=== PATIENT | female | born 1950 | race Caucasian/White ===

== ENCOUNTER 2017-08-02 12:49 | Observation (INO) | payer MEDICARE, MEDICAID ==
[2017-08-02 13:35] LABS: #Basophils 0.1 thou/uL (0.0-0.2); #Eosinphils 0.2 thou/uL (0.0-0.7); #Lymphocytes 2.3 thou/uL (1.20-3.40); #Monocytes 1.1 thou/uL (0.11-0.59); #Neutrophils 5.8 thou/uL (1.40-6.50); %Basophils 0.8 % (0.0-1.0); %Eosinophils 1.9 % (0.0-10.0); %Lymphocytes 24.3 % (21.0-51.0); %Monocytes 11.2 % (0.0-10.0); Hematocrit 34.8 % (36.0-47.0); Mean Platelet Volume 6.1 fL (7.4-10.4); Red Blood Cell (RBC) Count 3.41 mill/uL (4.20-5.40); White Blood Cell (WBC) Count 9.4 thou/uL (4.8-10.8)
[2017-08-02 13:43] LABS: PTT 33.4 SEC (22.9-36.1); Prothrombin Time 13.4 SEC (12.0-14.7)
[2017-08-02 13:56] LABS: ALT (SGPT) Less than 7 U/L (8-55); AST (SGOT) 14 U/L (5-34); Alkaline Phosphatase 70 U/L (40-150); Anion Gap 12 mmol/L (10-20); BUN (Urea Nitrogen) 8 mg/dL (9.8-20.1); Bilirubin, Total 0.6 mg/dL (0.2-1.2); CK (CPK) 63 U/L (29-168); Calc. Creatinine Clearance 0 mL/min (70-130); Calcium 8.7 mg/dL (7.8-10.44); Carbon Dioxide 27 mmol/L (23-31); Chloride 104 mmol/L (98-107); Estimated GFR-MDRD 76; Globulin 2.8 g/dL (2.4-3.5); Lipase 5 U/L (8-78); Protein, Total 6.3 g/dL (6.0-8.3)
[2017-08-02 14:01] LABS: Troponin I 0.013 ng/mL (< 0.028)
--- NOTE | 2017-08-02 14:56 | RAD ---
CHEST ONE VIEW: History: Chest pain. FINDINGS: Lungs are hyperinflated. Degenerative changes of both glenohumeral joints. Cardiac silhouette and mediastinal contours within normal limits. Old compression deformity at T10. IMPRESSION: 1. Hyperinflation without acute intrathoracic abnormality. 2. Likely scarring lung apices. 3. Old compression fracture at T10 with minimal height loss. POS: [facility]
[2017-08-02] MEDS ORDERED: Nitroglycerin 0.4 MG TAB (25 Tab Bottle) PO PRN (16:31)
[2017-08-02 16:48] VITALS: BMI 21.7
[2017-08-02] MEDS ORDERED: ALPRAZolam 0.25 MG TAB PO PRN (16:57)
[2017-08-02] MEDS ORDERED: Metoprolol Tartrate 5 MG/5 ML VIAL IVP SCH (17:00)
[2017-08-02] MEDS ORDERED: Lorazepam 0.5 MG TAB PO SCH (17:00)
[2017-08-02] MEDS ORDERED: Nicotine 21 MG PATCH TD SCH (17:00)
[2017-08-02] MEDS ORDERED: Lorazepam 0.5 MG TAB PO PRN (17:10)
[2017-08-02] MEDS ORDERED: traMADol HCl 50 MG TAB PO PRN (17:10)
[2017-08-02 17:28] LABS: Troponin I Less than 0.010 ng/mL (< 0.028)
[2017-08-02] MEDS: Sodium Chloride 0.9% 1,000 ML IV SCH ×2 (18:22→21:01)
[2017-08-02] MEDS ORDERED: Mometasone/Formoterol 120 PUFF INHALER INH SCH (18:30)
[2017-08-02] MEDS: Mometasone/Formoterol 120 PUFF INHALER INH SCH (19:46)
[2017-08-02] MEDS: Ipratropium Bromide 2.5 ml Neb NEB SCH (19:49)
[2017-08-02 20:23] LABS: Troponin I Less than 0.010 ng/mL (< 0.028)
[2017-08-02] MEDS ORDERED: Loratadine 10 MG TAB PO SCH (21:00)
[2017-08-02] MEDS ORDERED: Atorvastatin Calcium 40 MG TAB PO SCH (21:00)
[2017-08-02 22:04] LABS: Bilirubin Negative (Negative); Blood, Urine Negative (Negative); Glucose, Urine (Dipstick) Negative (Negative); Ketone, Urine Negative (Negative); Nitrite Negative (Negative); Protein, Urine (Dipstick) Negative (Neg-Trace)
[2017-08-02 22:06] LABS: Bacteria/HPF 1+ HPF (None Seen); Hyaline Casts/LPF 0-3 HYALINE CAST LPF (0-3 Hyaline)
--- NOTE | 2017-08-02 22:43 | HP-2 ---
CODE STATUS: FULL. PRIMARY CARE PHYSICIAN: Dr. Castillo. ATTENDING PHYSICIAN: Dr. Corbett. PGY-I: Dr. Adam Knapp. HISTORIAN: Patient. SPECIALIST: Dr. Roly Alexis, [employer], [place]. CHIEF COMPLAINT: Chest pain. HISTORY OF PRESENT ILLNESS: Piper Zuñiga is a 67-year-old female with a chief complaint of chest pain described as sharp and stabbing pain in the left side of her chest that radiates to her back, left shoulder and down her left arm. The patient states that she saw a frothing machine operator on Saturday and that she had a stress test at the beginning of July, which was normal. When she spoke with the frothing machine operator on Saturday, she also recently had a "CT scan that showed blockages" and was told that she would be managed with nitroglycerin and if that did not work, a stent would be placed. She says she is also pre-diabetic and says the chest pain occurred when she was sitting down today, but has also occurred on other days, once additionally, when she was making coffee. The pain lasts for about 5 minutes. She also complains of dizziness that is sometimes associated with the chest pain, feels like she is going to pass out, has tunnel vision. Once again, she says the pain as shooting pains that radiate down the left arm to the fingertips. In the ER, the patient received aspirin 324 mg and 1 liter of normal saline. PAST MEDICAL HISTORY: Hyperlipidemia, hypertension, chronic obstructive pulmonary disease, osteoporosis, anxiety, peptic ulcer disease and tremors. Currently being worked up for Parkinson disease, spinal injections for chronic back pain. PAST SURGICAL HISTORY: Denies. ALLERGIES: TETRACYCLINE and ERYTHROMYCIN. MEDICATIONS: Spiriva, Advair, duloxetine, alendronate, atorvastatin, tramadol, vitamin D, omeprazole and lisinopril. FAMILY HISTORY: Sister has CHF. Breast cancer on her mom's side. Her dad had Parkinson disease. She has a daughter that had a massive heart attack. SOCIAL HISTORY: Has a [id number] smoking history. Denies alcohol and drug use. REVIEW OF SYSTEMS: General: Endorses hot flashes. Denies weight or appetite changes. Cardiovascular: Endorses chest pain, palpitations, edema in her legs. Respiratory: Denies cough, congestion or shortness of breath. Gastrointestinal: Endorses nausea, vomiting and diarrhea. Although, the diarrhea which occurred over the past few days. Vomiting has not occurred in several months. Genitourinary: Endorses urge incontinence that has been going on for about a month. Also, endorses some dysuria and complains of her urine being discolored or just red. Neurologic: Endorses weakness and numbness. Denies syncope. Endorses tremors lightheadedness and dizziness; sometimes associated with the chest pain, but sometimes not. Psychiatric: Endorses anxiety. PHYSICAL EXAMINATION: VITAL SIGNS: Blood pressure 125/55, pulse 107-112, respiratory rate 18, T-max 99.1, pulse ox 96% on room air and current weight 43.6 kilograms. GENERAL: Alert and oriented x4, no apparent distress, although anxious appearing, thin, appropriately interactive. EYES: Pupils are equal, round and reactive to light and accommodation. Extraocular muscles are intact. Conjunctivae within normal limits. ENT: Nasal mucosa within normal limits. Oropharynx within normal limits. NECK: Supple. No thyromegaly or lymphadenopathy. CARDIOVASCULAR: Tachycardic. No murmurs, rubs or gallops appreciated. Radial pulses are 2+ bilaterally. Pedal pulses are 2+ bilaterally. RESPIRATORY: Normal effort, no retractions. LUNGS: Clear to auscultation bilaterally. ABDOMEN: Soft and nontender to palpation. Normal active bowel sounds. No masses or distention. EXTREMITIES: No clubbing or cyanosis or edema. MUSCULOSKELETAL: Reproducible pain with palpation of the left chest. NEUROLOGIC: No focal deficits, although bilateral shaking hand tremor, positional and intentional. Sensation within normal limits. Cranial nerves II- XII intact. GCS of 15. PSYCHIATRIC: Appropriate, although anxious appearing. LABORATORY AND IMAGING DATA: White blood cell count 9.4, hemoglobin 11.6, hematocrit 34.8, platelets 385, MCV 102. CMP: Sodium 139, potassium 4.2, chloride 104, bicarb 27, BUN 8, creatinine 0.76 , glucose 90, calcium 8.7, total protein 6.3, albumin 3.5, total bilirubin 0.6, AST 14, ALT 7, alkaline phosphatase 70. GFR 76. D-dimer 0.41. CK 63, CK-MB 1.5, troponin 0.013, lipase 5. BNP 43. EKG: Sinus tachycardia with some PVCs, QTC 464. PTT 3.4, PT 13.4 and INR 1. Chest x-ray: Hyperinflation. ASSESSMENT AND PLAN: This is a 67-year-old female with a past medical history of hypertension and hyperlipidemia who presents with chest pain, admitted for atypical chest pain. 1. Chest pain: Presentation of chest pain is atypical in nature. It could be due to costochondritis or possibly hyperthyroidism. We will order a stress test in the morning and make the patient n.p.o. at midnight. We will hold the patient's metoprolol overnight. We will trend the patient's troponins. They have been negative so far as well as her CK-MB, which has also been negative. The patient states that she has a frothing machine operator, Dr. Roly Alexis and states she had a stress test a month ago; However, we were unable to obtain the records. At this point, we will proceed with a pharmacological stress test in the morning. The patient was placed on fluids with normal saline at 100 mL an hour and a TSH was ordered. 2. Macrocytic anemia. B12 and folate were ordered. We will follow up on those results. 3. Hypertension. We will restart the patient's home medications of lisinopril and metoprolol. 4. Hyperlipidemia. We will restart patient's atorvastatin 40 mg. We will consider increasing it to 80 mg. 5. Dysuria. We will order urinalysis and culture. 6. Tremor, bilateral hands that is postural and also an intention tremor. The patient states she has been worked up for Parkinson disease in the outpatient setting. We will further evaluate for a Parkinson's diagnosis. 7. Deep venous thrombosis prophylaxis. The patient was placed on sequential compression devices. DISPOSITION AND LENGTH OF HOSPITAL STAY: 2 days. Symptomatic medication will be provided. History and physical exam as well as management were discussed with Dr. Corbett. ALESSIA
[2017-08-03] MEDS: Ipratropium Bromide 2.5 ml Neb NEB SCH ×2 (00:27→06:36)
[2017-08-03 05:02] LABS: #Eosinphils 0.3 thou/uL (0.0-0.7); #Monocytes 0.9 thou/uL (0.11-0.59); %Basophils 0.5 % (0.0-1.0); %Eosinophils 3.4 % (0.0-10.0); %Lymphocytes 21.4 % (21.0-51.0); %Monocytes 9.8 % (0.0-10.0); Mean Platelet Volume 6.4 fL (7.4-10.4); White Blood Cell (WBC) Count 9.3 thou/uL (4.8-10.8)
[2017-08-03 05:28] LABS: Anion Gap 9 mmol/L (10-20); BUN (Urea Nitrogen) 8 mg/dL (9.8-20.1); Calc. Creatinine Clearance 60 mL/min (70-130); Calcium 8.4 mg/dL (7.8-10.44); Carbon Dioxide 28 mmol/L (23-31); Chloride 104 mmol/L (98-107); Cholesterol 136 mg/dl (< 200 Desired); Estimated GFR-MDRD 77; LDL Cholesterol, Calculated 67 mg/dL
[2017-08-03] MEDS: Mometasone/Formoterol 120 PUFF INHALER INH SCH (06:46)
--- NOTE | 2017-08-03 07:00 | PDOC.FM ---
- Subjective Subjective: Patient doing well this morning, not currently having any chest pain. Records were reviewed from stress test and echo from one month ago and those were normal so we will not proceed with stress test this morning. Patient had no acute events overnight, no complaints. Patient asked when she will be able to go home today. - Objective MAR Reviewed: Yes Vital Signs & Weight: Vital Signs (12 hours) Temp Pulse Resp BP Pulse Ox 08/03/17 06:46 101 H 16 08/03/17 06:38 95 08/03/17 06:36 101 H 16 08/03/17 04:46 98.0 F 98 20 117/55 L 95 08/03/17 03:39 97 08/03/17 00:27 96 16 97 08/02/17 23:40 98.4 F 95 18 98/56 L 96 08/02/17 20:12 98.6 F 92 18 105/55 L 94 L 08/02/17 20:05 98.6 F 92 18 08/02/17 19:49 97 18 98 08/02/17 19:46 98 16 98 Weight Weight 51.256 kg I&O: 08/01/17 08/02/17 08/03/17 06:59 06:59 06:59 Intake Total 1685 Output Total 1700 Balance -15 Result Diagrams: 08/03/17 04:41 08/03/17 04:41 EKG Reviewed by me: Yes Radiology Reviewed by me: Yes Phys Exam - Physical Examination Constitutional: NAD HEENT: PERRLA, moist MMs, sclera anicteric Neck: supple, full ROM Respiratory: no wheezing, no rales, no rhonchi, clear to auscultation bilateral Cardiovascular: RRR, no significant murmur, no rub Gastrointestinal: soft, non-tender, no distention Musculoskeletal: no edema, pulses present Neurological: non-focal, normal sensation, moves all 4 limbs Psychiatric: normal affect, A&O x 3 Dx/Plan (1) Atypical chest pain Code(s): R07.89 - OTHER CHEST PAIN Status: Acute Plan: stabbing, sharp L sided chest pain radiation to back and shoulder -recent stress was normal per patient but unable to retrieve records -pt also stated that "CT showed blockages that may need stent" -plan for stress test today (2) HTN (hypertension) Code(s): I10 - ESSENTIAL (PRIMARY) HYPERTENSION Status: Chronic Plan: pt takes lisinopril at home -will continue home medications -closely monitor BP (3) COPD (chronic obstructive pulmonary disease) Status: Chronic Plan: continue home medications (4) Anxiety Code(s): F41.9 - ANXIETY DISORDER, UNSPECIFIED Status: Chronic Plan: Cont home meds (5) Macrocytic anemia Code(s): D53.9 - NUTRITIONAL ANEMIA, UNSPECIFIED Status: Acute Plan: replaced folate - Plan Plan: Patient cleared for discharge today. Will need to follow up with pcp and with union steward over the next week.
[2017-08-03] MEDS ORDERED: Ketorolac Tromethamine 30 MG/ML VIAL IVP SCH (08:00)
[2017-08-03] MEDS: Sodium Chloride 0.9% 1,000 ML IV SCH (08:50)
[2017-08-03] MEDS ORDERED: Lisinopril 10 MG TAB PO SCH (09:00)
[2017-08-03] MEDS ORDERED: Aspirin 325 MG TAB PO SCH (09:00)
[2017-08-03] MEDS ORDERED: Folic Acid 1 MG TAB PO SCH (09:00)
[2017-08-03] MEDS ORDERED: Pantoprazole 40 MG VIAL IVP SCH (09:00)
[2017-08-03 12:05] VITALS: BP 122/58; TEMP 98.5
--- NOTE | 2017-08-03 14:22 | ADD-PRG ---
DATE OF SERVICE: 08/03/2017 ADDENDUM This is an addendum to the note of Dr. Toi Christian. Ms. Zuñiga was admitted with some atypical chest pain. Her troponins have been negative. Her EKG did not reveal any ischemia. We were able to obtain her previous stress Myoview results done in [facility] approximately 1 month ago, which were negative for coronary artery disease. She states she was to ld by her optometric assistant that based upon a CT of her heart, she may have some calcified lesions for whi ch he has recommended medical therapy. In the event, we will discharge her today on aspirin, beta bl ocker and atorvastatin to follow up with her optometric assistant next week.
--- NOTE | 2017-08-04 13:58 | DIS-2 ---
DATE OF ADMISSION: 08/02/2017 DATE OF DISCHARGE: 08/03/2017 RESIDENT: Toi Christian M.D. ADMITTING ATTENDING: Steve Corbett M.D. DISCHARGE ATTENDING: Antelmo Carvajal M.D. CONSULTATIONS: None. PROCEDURES: Chest x-ray on 08/02/2017, impression, hyperinflation without acute intrathoracic abnorm ality. Old compression fracture at T10 with minimal height loss. PRIMARY DIAGNOSIS: Atypical chest pain. SECONDARY DIAGNOSES: 1. Hypertension. 2. Chronic obstructive pulmonary disease. 3. Anxiety. 4. Macrocytic anemia. HOME MEDICATIONS: 1. Isosorbide mononitrate 30 mg p.o. daily. 2. Xanax 0.25 mg p.o. b.i.d. 3. Spiriva 18 mcg INH daily. 4. Omeprazole 20 mg p.o. daily. 5. Zyrtec 10 mg p.o. at bedtime. 6. Lipitor 40 mg p.o. at bedtime. 7. Tramadol 50 mg p.o. q.i.d. p.r.n. 8. Advair Diskus 250/50, one INH b.i.d. 9. Cymbalta 30 mg p.o. b.i.d. 10. Fosamax 70 mg p.o. every 7 day. NEW HOME MEDICATIONS: 1. Aspirin 325 mg p.o. daily. 2. Folic acid 1 mg p.o. daily. 3. Toprol-XL 25 mg p.o. daily. 4. Nitrostat 0.4 mg p.o. q. 5 minutes p.r.n. DISCONTINUED MEDICATIONS: Lisinopril 10 mg p.o. daily. HISTORY OF PRESENT ILLNESS AND HOSPITAL COURSE: Piper Zuñiga is a 67-year-old female who came to the ER for chest pain that she described as sharp and stabbing in left side of her chest that radiated to the left back and shoulder and down the left arm. She states that she saw a slot machine mechanic on Saturday and had a stress test at the beginning of the month and that stress test was negative. She also stat es that she had a CT done that showed blockages, but she was told that should be medically managed wi th nitroglycerin and if that did not work, a stent would be placed. The chest pain lasted for about 5 minutes on day of admission. It occurred while she was making coffee. The patient was admitted an d records were obtained. We were able to get the records early in the morning on 08/03/[address] showed a normal echo and a normal stress test that showed no signs of ischemia. EKG also did not reveal any ischemic changes. Troponins were negative x3 during this admission. She was told by card iologist that based on CT of her heart, she might have some calcified lesions and he recommended medi luz therapy. She was discharged on 08/03/2017 with aspirin, beta maco, and atorvastatin to follow up with goal to follow up with her slot machine mechanic early next week. The patient was cleared for discha rge on 08/03/2017 and understood the plan and was in agreement. DISPOSITION: Guarded. DISCHARGE INSTRUCTIONS: 1. Location: Home. 2. Diet: Heart healthy. 3. Activity: As tolerated. 4. Follow up with Cardiology, Dr. Dunham in [place] next week.
[2017-08-07] MEDS ORDERED: Ergocalciferol 1.25 MG(50,000 UNITS) CAP PO SCH (09:00)
[2017-08-08] MEDS ORDERED: Alendronate Sodium 70 mg Tablet PO SCH (06:00)
== END 2017-08-03 12:54 | disposition home or self-care (01) ==
LOC: ERS 12:49 → 2SW 14:20
PROVIDERS: ADMIT Family Medicine; ATTEND Family Medicine
DX: R07.89 Other chest pain (principal); I10 Essential (primary) hypertension; J44.9 Chronic obstructive pulmonary disease, unspecified; F41.9 Anxiety disorder, unspecified; G20 Parkinson's disease; D64.9 Anemia, unspecified; E78.5 Hyperlipidemia, unspecified; M81.0 Age-related osteoporosis without current pathological fracture; G89.29 Other chronic pain; F17.210 Nicotine dependence, cigarettes, uncomplicated; Z88.1 Allergy status to other antibiotic agents; Z79.899 Other long term (current) drug therapy; Z80.3 Family history of malignant neoplasm of breast; Z82.0 Family history of epilepsy and other diseases of the nervous system
CPT/HCPCS: 71010; 80048; 80061; 81001; 82550; 82553; 82607; 82746; 83690; 83880; 84484 ×2; 85025; 85379; 85610; 85730; 87086; 93005; 94640 ×4; 94664; 94760; 96361 ×2; 96374; 99285; G0378; 36415; 80053; 84443; 96360; J1885; J7644

== ENCOUNTER 2017-12-13 09:07 | Emergency (ER) | payer MEDICARE, MEDICAID | END 2017-12-13 10:50 | disposition home or self-care (01) | LOC: ERS 09:07 | DX: T78.41XA Arthus phenomenon, initial encounter (principal); K02.9 Dental caries, unspecified; K13.70 Unspecified lesions of oral mucosa; E78.5 Hyperlipidemia, unspecified; I10 Essential (primary) hypertension; J44.9 Chronic obstructive pulmonary disease, unspecified; D64.9 Anemia, unspecified; F41.9 Anxiety disorder, unspecified; F17.210 Nicotine dependence, cigarettes, uncomplicated; Z79.899 Other long term (current) drug therapy; Z79.84 Long term (current) use of oral hypoglycemic drugs | CPT/HCPCS: 99283 ==

== ENCOUNTER 2018-03-10 10:29 | Outpatient (CLI) | payer MEDICARE, MEDICAID ==
--- NOTE | 2018-03-10 13:43 | MRI ---
MRI LUMBAR SPINE WITHOUT CONTRAST: INDICATIONS: History of fall with low back pain and pain radiating down into the right leg. COMPARISON: No radiographic or MRI comparisons are available. TECHNIQUE: Multiplanar, multisequence MR images were obtained of the lumbar spine without IV contrast. FINDINGS: The conus is seen to terminate proximally at L2. The visualized aspects of the retroperitoneum and p aravertebral soft tissues appear within normal limits. At the L5-S1 level, there is a mild broad-based bulge with facet hypertrophy, inducing mild bilateral neural foraminal narrowing. At L4-L5, there is a broad-based bulge with ligamentum flavum hypertrophy and facet hypertrophy, prod ucing mild central canal narrowing and mild bilateral neural foraminal narrowing. At L3-L4, there is a broad-based bulge with ligamentum flavum hypertrophy, without appreciable centra l canal or neural foraminal narrowing. At L2-L3, there is a broad-based bulge with facet hypertrophy, without appreciable central canal or n eural foraminal narrowing. At L1-L2, there is a mild broad-based bulge, without appreciable central canal narrowing or neural fo raminal narrowing. At T12-L1, there is no appreciable central canal or neural foraminal narrowing. There is a remote superior central endplate compression abnormality of T12, with associated sub-endpl ate Schmorl's nodes or degenerative cysts. IMPRESSION: 1. Multilevel spondylosis of the lumbar spine with multilevel mild neural foraminal narrowing, as de tailed above. 2. Chronic appearing superior central endplate compression abnormality at T12. POS: [facility]
--- NOTE | 2018-03-10 14:09 | RAD ---
LUMBOSACRAL SPINE THREE VIEWS: HISTORY: Intervertebral disk disorder and radiculopathy. COMPARISON: None. FINDINGS: Lateral views of the lumbosacral spine were performed in neutral, flexion, and extension. The verteb ral bodies demonstrate normal height and alignment without fracture or subluxation. Alignment is unc hanged with flexion or extension. Mild posterior facet arthrosis if seen in the lower lumbosacral sp ine. IMPRESSION: Unchanged alignment of the lumbar spine with bending. POS: [facility]
== END 2018-03-10 10:30 | disposition home or self-care (01) ==
LOC: MRI 10:29
PROVIDERS: ATTEND Nurse Practitioner Family
DX: M51.16 Intervertebral disc disorders with radiculopathy, lumbar region (principal); M47.26 Other spondylosis with radiculopathy, lumbar region; M99.83 Other biomechanical lesions of lumbar region
CPT/HCPCS: 36415; 72100; 72148; 80053; 80061; 82306; 83036

== ENCOUNTER 2019-04-11 22:44 | Inpatient (IN) | payer MEDICARE, OTHER ==
[2019-04-11] MEDS ORDERED: NS 0.9% w/ 20 MEQ KCL 1,000 ML IV SCH (23:15)
[2019-04-11 23:50] LABS: Anion Gap 18 mmol/L (10-20); BUN (Urea Nitrogen) 13 mg/dL (9.8-20.1); CK (CPK) 1109 U/L (29-168); Calc. Creatinine Clearance 0 mL/min (70-130); Calcium 7.1 mg/dL (7.8-10.44); Carbon Dioxide 21 mmol/L (23-31); Chloride 102 mmol/L (98-107); Estimated GFR-MDRD 24; Glucose 64 mg/dL (80-115); Sodium 139 mmol/L (136-145)
[2019-04-11 23:53] LABS: Potassium 1.7 mmol/L (3.5-5.1)
[2019-04-11] MEDS ORDERED: Potassium Chloride 20 MEQ TAB ONE (23:56)
[2019-04-12] MEDS ORDERED: Senokot S 8.6-50 MG TAB PO PRN (00:53)
[2019-04-12] MEDS ORDERED: Acetaminophen 325 MG TAB PO PRN (00:53)
--- NOTE | 2019-04-12 01:10 | PDOC.FPRHP ---
- History of Present Illness Chief Complaint: elevated temperature, left-sided tingling History of Present Illness: Patient is a 68F with PMHx of HTN, COPD, osteoporosis, and pre-diabetes that was transferred via EMS to the [place] ER after feeling very warm at home and experiencing left arm, leg, and face tingling. Patient reports that she lives alone in an and the a/c broke this past , and she has continued to live in it in the heat. Her memory of the last few days is altered. She uses a walker at home and remembers falling at one point possibly /Saturday and possibly again today, and remaining on the ground for an unknown amount of time. She reports that during the last several days she has been drinking a large amount of ice water 2/2 increased thirst and to cool herself down. She reports sweating heavily. ED Course: EMS reported temp of 104F In [place] ER creatinine 2.2 and Potassium 1.[address] negative Received 3L fluid + 20meq K IV [facility] ER: received 40meq K PO + 20meq K IV + 1L NS - Allergies/Adverse Reactions Allergies Allergy/AdvReac Type Severity Reaction Status Date / Time erythromycin base Allergy Verified 04/12/19 01:58 tetracycline Allergy Verified 04/12/19 01:58 - Home Medications Medication Instructions Recorded Confirmed Type Alendronate Sodium [Fosamax] 70 mg PO Q7D 08/02/17 04/12/19 History Cetirizine HCl [Zyrtec] 10 mg PO HS 08/02/17 04/12/19 History DULoxetine [Cymbalta] 60 mg PO DAILY 08/02/17 04/12/19 History Ergocalciferol (Vitamin D2) 50,000 unit PO Q7D 08/02/17 04/12/19 History [Vitamin D2] Isosorbide Mononitrate [Isosorbide 30 mg PO DAILY 08/02/17 04/12/19 History Mononitrate ER] Omeprazole 20 mg PO DAILY 08/02/17 04/12/19 History Tiotropium [Spiriva Handihaler] 2 inh INH DAILY 08/02/17 04/12/19 History Folic Acid [Folvite] 1 mg PO DAILY tab 08/03/17 04/12/19 Rx Metoprolol Succinate [Toprol XL] 25 mg PO DAILY #30 tab 08/03/17 04/12/19 Rx Nitroglycerin [Nitrostat] 0.4 mg PO Q5MIN PRN #30 tab 08/03/17 04/12/19 Rx Acetaminophen With Codeine 1 tablet PO Q8HR 04/12/19 04/12/19 History [Tylenol with Codeine #3] Doxepin HCl 25 mg PO BID 04/12/19 04/12/19 History Furosemide 40 mg PO DAILY 04/12/19 04/12/19 History Gabapentin 600 mg PO TID 04/12/19 04/12/19 History Rosuvastatin [Crestor] 20 mg PO DAILY 04/12/19 04/12/19 History Tiotropium [place] [Spiriva] 1 puff INH BID 04/12/19 04/12/19 History metFORMIN [Glucophage] 250 mg PO QAM-WM 04/12/19 04/12/19 History - History PMHx: HTN, COPD, osteoporosis, pre-diabetes PSHx: bilateral cataract repair, appendectomy, cholecystectomy, x 3 FHx: Paternal uncle- colon ca Cousin- breast ca Cousin- colon ca Social: Lives alone in RV with a/c that broke on Smokes 0.5ppd No ETOH use No drug use - Review of Systems General: reports: night sweats, other (feels warm) Eyes: reports: vision changes (double vision at time over the last month). denies: eye pain ENT: denies: nasal congestion, rhinorrhea Respiratory: reports: shortness of breath. denies: cough Cardiovascular: denies: chest pain, edema Gastrointestinal: reports: diarrhea, abdominal pain (chronic) Genitourinary: denies: dysuria, polyuria Skin: reports: rashes (Left-sided over face and chest). denies: jaundice Musculoskeletal: reports: pain (chronic). denies: swelling Neurological: reports: other (left-sided parasthesias over face, arm, leg). denies: weakness Psychological: denies: anxiety - Vital signs BP: [113/57] HR: [81] RR: [18] Tmax: [98.1] Pox: [92]% on [RA] Wt: [56kg] - Physical Exam Constitutional: NAD, awake, alert and oriented HEENT: normocephalic and atraumatic, EOMI, no scleral icterus, grossly normal hearing Neck: supple, trachea midline Chest: no-tender to palpation, other (erythema along left side) Heart: RRR, pulses present, no edema Lungs: CTAB, no respiratory distress Abdomen: soft, other (mildly ttp in mid-epigastric region) Musculoskeletal: normal structure, normal tone Neurological: CN II-XII intact, other (tingling reported along left face, arm, and leg) Skin: no jaundice, other (erythematous along left face and chest) Heme/Lymphatic: no unusual bruising or bleeding, no purpura Psychiatric: normal mood and affect, other (reduced memory for last few days) FMR H&P: Results - Labs Result Diagrams: 04/12/19 01:32 Lab results: Sodium 139 mmol/L (136-145) 04/11/19 23:21 Potassium 1.7 mmol/L (3.5-5.1) L* 04/11/19 23:21 Chloride 102 mmol/L (98-107) 04/11/19 23:21 Carbon Dioxide 21 mmol/L (23-31) L 04/11/19 23:21 BUN 13 mg/dL (9.8-20.1) 04/11/19 23:21 Creatinine 2.05 mg/dL (0.6-1.1) H 04/11/19 23:21 Glucose 64 mg/dL (80-115) L 04/11/19 23:21 Calcium 7.1 mg/dL (7.8-10.44) L 04/11/19 23:21 Creatine Kinase 1109 U/L (29-168) H 04/11/19 23:21 - EKG Interpretation EKG: Normal sinus rhythm PACs Prolonged QTc FMR H&P: A/P - Problem List (1) Rhabdomyolysis Current Visit: Yes Status: Acute Code(s): M62.82 - RHABDOMYOLYSIS (2) Heat stroke Current Visit: Yes Status: Acute Code(s): T67.0XXA - HEATSTROKE AND SUNSTROKE, INITIAL ENCOUNTER (3) Hypokalemia Current Visit: Yes Status: Acute Code(s): E87.6 - HYPOKALEMIA (4) GAL (acute kidney injury) Current Visit: Yes Status: Acute Code(s): N17.9 - ACUTE KIDNEY FAILURE, UNSPECIFIED (5) Hypocalcemia Current Visit: Yes Status: Acute Code(s): E83.51 - HYPOCALCEMIA - Plan #Heat Stroke -Patient had reported temp of 104F in the ambulance -Patient has altered memory of the last few days -parasthesias on left face, arm, and leg; erythema on left face and chest on exam -IVF, encouraged PO intake -VSS, continue to monitor #Rhabdo -likely 2/2 heat stroke and/or patient stating that she was down for undetermined amount of time -CPK 1109 -IVF well above maintenance, encourage PO intake -LFTs, PT, INR pending -will continue to follow #GAL -creatinine 2.2, above 0.83 in March 2019 -patient reports heavily sweating throughout last few days -IVF above maintenance -will continue to follow #Hypokalemia -likely 2/2 combo of patient taking lasix + sweating profusely in the heat -hold home lasix -Potassium 1.6 in ED -likely contributing to patient's weakness and paresthesias -Received 20meq K IV in [place] + 40meq K PO + 20meq K IV in [facility] ED -2am K pending -mag pending -will continue to monitor and replete as necessary #Hypocalcemia -Ca 7.1 -patient has osteoporosis, on alendronate -possibly contributed to by rhabdo -continue to monitor Diet: CC DVT Proph: SCDs 2/2 fall risk GI proph: home omeprazole Code Status: Full Dispo: Tele for cardiac monitoring while receiving IVF for rhabdo correction, continual monitoring of potassium FMR H&P: Upper Level - Plan Date/Time: 04/12/19 0105 IToi MD, have evaluated this patient and agree with findings/plan as outlined by internal security manager resident. Pertinent changes/additions are listed here. Piper Zuñiga is a 68 year old F with a PMH of HTN, COPD and Osteoporosis who presented to the ED by EMS for weakness, left sides tingling, and heat exhaustion. Patient states that the A/C in her trailer broke. She stated that she had been sweating profusely for the last couple days and having progressively worsening weakness. She developed some weakness and tingling on her left side. Prior to her A/C going out, she was in her normal state of health. When EMS arrived to her trailer, she had a temp of 104. In the ED, she had an GAL with Cr of 2.2, a CK of about 1200, and a K of 1.6. She was given IVFs and potassium was supplemented. She had a negative CXR and brain CT. EKG showed NSR with PVCs. Pt is being admitted for Classic Heat Stroke, Rhabdomyolysis, Hypokalemia, and GAL. Plan is to continue monitoring electrolytes and supplementing as needed and aggressively hydrating with IVFs. Admit to inpatient/tele. Please see internal security manager note above for full H&P, which I have reviewed and agree with. Pt is full code. VTE ppx with scds as she is low risk for VTE by Emma score and has high risk of falling with multiple falls over the last several days. Addendum - Attending - Attending Attestation Date/Time: 04/12/19 2638 I personally evaluated the patient and discussed the management with Dr. Hargrove/ Gino. I agree with the History, Examination, Assessment and Plan documented above with any addition or exceptions noted below. Patient here with several days of prolonged heat exposure and decreased PO intake causing diffuse weakness and syncopal episode. Her exam is overall benign. Current vitals stable. Her labs show evidence of hypovolemia and profound hypokalemia. She will be given IVF, KCL by IV and PO routes, and consult PT. Anticipate 2-3 day hospitalization.
[2019-04-12] MEDS ORDERED: Lactated Ringer's 1,000 ML IV SCH ×2 (01:15→01:16)
[2019-04-12 01:55] LABS: INR-International Normal Ratio 1.1; Prothrombin Time 14.1 SEC (12.0-14.7)
[2019-04-12] MEDS: Nicotine 14 MG PATCH TD SCH (02:09)
[2019-04-12 02:10] LABS: ALT (SGPT) 20 U/L (8-55); AST (SGOT) 46 U/L (5-34); Albumin 3.4 g/dL (3.4-4.8); Alkaline Phosphatase 89 U/L (40-150); Bilirubin, Direct 0.5 mg/dL (0.1-0.3); Bilirubin, Total 0.7 mg/dL (0.2-1.2); Magnesium 2.1 mg/dL (1.6-2.6); Protein, Total 6.3 g/dL (6.0-8.3)
[2019-04-12 02:13] LABS: Potassium 2.1 mmol/L (3.5-5.1)
[2019-04-12] MEDS ORDERED: Nitroglycerin 0.4 MG TAB (25 Tab Bottle) SL PRN (02:13)
[2019-04-12] MEDS: Potassium Chloride 40 MEQ in Lactated Ringer's 1,000 ML IV SCH ×2 (02:58→06:40)
[2019-04-12] MEDS ORDERED: Acetaminophen/Codeine 30-300mg Tablet PO SCH (06:00)
[2019-04-12] MEDS: Ipratropium Bromide 2.5 ml Neb NEB SCH ×3 (08:02→18:44)
[2019-04-12 08:09] LABS: #Basophils 0.1 thou/uL (0.0-0.2); #Eosinphils 0.1 thou/uL (0.0-0.7); #Lymphocytes 1.9 thou/uL (1.20-3.40); #Monocytes 1.3 thou/uL (0.11-0.59); #Neutrophils 6.3 thou/uL (1.40-6.50); %Basophils 0.7 % (0.0-1.0); %Eosinophils 0.6 % (0.0-10.0); %Monocytes 13.8 % (0.0-10.0); Hemoglobin 14.2 g/dL (12.0-16.0); Mean Corpuscular HGB CONC 34.3 g/dL (32.0-36.0); Mean Corpuscular Hemoglobin 30.8 pg (27.0-31.0); Mean Corpuscular Volume 89.9 fL (78.0-98.0); Platelet Count 280 thou/uL (130-400); RBC Distribution Width 12.9 % (11.5-14.5); White Blood Cell (WBC) Count 9.7 thou/uL (4.8-10.8)
[2019-04-12 08:26] LABS: ALT (SGPT) 20 U/L (8-55); AST (SGOT) 42 U/L (5-34); Albumin 3.2 g/dL (3.4-4.8); Alkaline Phosphatase 83 U/L (40-150); Anion Gap 17 mmol/L (10-20); BUN (Urea Nitrogen) 12 mg/dL (9.8-20.1); Bilirubin, Total 0.6 mg/dL (0.2-1.2); CK (CPK) 1231 U/L (29-168); Calc. Creatinine Clearance 26 mL/min (70-130); Calcium 7.6 mg/dL (7.8-10.44); Carbon Dioxide 20 mmol/L (23-31); Chloride 109 mmol/L (98-107); Estimated GFR-MDRD 27; Globulin 2.7 g/dL (2.4-3.5); Glucose 66 mg/dL (80-115); Magnesium 2.1 mg/dL (1.6-2.6); Protein, Total 5.9 g/dL (6.0-8.3); Sodium 143 mmol/L (136-145)
[2019-04-12 08:35] LABS: Potassium 2.5 mmol/L (3.5-5.1)
[2019-04-12] MEDS ORDERED: Ergocalciferol 1.25 MG(50,000 UNITS) CAP PO SCH (09:00)
[2019-04-12] MEDS ORDERED: Spiriva 18 MCG CAP (Box of 5 Caps) INH SCH (09:00)
[2019-04-12] MEDS ORDERED: Potassium Chloride 40 MEQ in Sodium Chloride 0.9% 500 ML IVPB SCH (09:15)
[2019-04-12] MEDS: Gabapentin 300 MG CAP PO SCH ×3 (09:39→21:19)
[2019-04-12] MEDS: Rosuvastatin 20 MG TAB PO SCH (09:39)
[2019-04-12] MEDS: Folic Acid 1 MG TAB PO SCH (09:39)
[2019-04-12] MEDS: Lactated Ringer's 1,000 ML IV SCH ×4 (09:48→21:20)
[2019-04-12] MEDS: Acetaminophen/Codeine 30-300mg Tablet PO PRN ×2 (14:25→21:42)
[2019-04-12 16:32] LABS: Anion Gap 12 mmol/L (10-20); BUN (Urea Nitrogen) 10 mg/dL (9.8-20.1); Calc. Creatinine Clearance 29 mL/min (70-130); Calcium 7.7 mg/dL (7.8-10.44); Carbon Dioxide 22 mmol/L (23-31); Chloride 109 mmol/L (98-107); Estimated GFR-MDRD 31; Glucose 105 mg/dL (80-115); Potassium 3.4 mmol/L (3.5-5.1); Sodium 140 mmol/L (136-145)
[2019-04-13] MEDS: Ipratropium Bromide 2.5 ml Neb NEB SCH ×4 (01:24→19:05)
[2019-04-13] MEDS: Lactated Ringer's 1,000 ML IV SCH ×2 (01:34→06:06)
[2019-04-13] MEDS: Nicotine 14 MG PATCH TD SCH (01:34)
[2019-04-13 05:40] LABS: Anion Gap 9 mmol/L (10-20); BUN (Urea Nitrogen) 7 mg/dL (9.8-20.1); Calc. Creatinine Clearance 33 mL/min (70-130); Calcium 7.6 mg/dL (7.8-10.44); Carbon Dioxide 25 mmol/L (23-31); Chloride 108 mmol/L (98-107); Estimated GFR-MDRD 36; Glucose 108 mg/dL (80-115); Sodium 139 mmol/L (136-145)
[2019-04-13 05:43] LABS: Potassium 2.8 mmol/L (3.5-5.1)
[2019-04-13] MEDS ORDERED: Potassium Chloride 20 MEQ TAB PO SCH (06:00)
[2019-04-13] MEDS: Gabapentin 300 MG CAP PO SCH ×3 (06:06→21:17)
[2019-04-13] MEDS: Acetaminophen/Codeine 30-300mg Tablet PO PRN (06:06)
--- NOTE | 2019-04-13 06:11 | PDOC.FM ---
- Subjective Subjective: Patient sitting up in bed this morning, complains of new chest pain and increased shortness of breath. States CP was occasional yesterday but has become more constant overnight. Started noticing she felt out of breath yesterday and now feels increased shortness of breath this morning. Patient still feels like her left face is burning, tingling, and now itching. She says she feels like her rash has spread on her face to now underneath her chin and on her anterior neck base. - Objective MAR Reviewed: Yes Vital Signs & Weight: Vital Signs (12 hours) Temp Pulse Resp BP Pulse Ox 04/13/19 01:24 71 18 94 L 04/13/19 00:00 97.6 F 77 18 131/61 95 04/12/19 20:00 97.0 F L 87 16 141/67 H 97 04/12/19 18:44 79 16 97 Weight Weight 56.518 kg I&O: 04/11/19 04/12/19 04/13/19 06:59 06:59 06:59 Intake Total 1985 3450 Output Total 1600 1600 Balance 385 1850 Result Diagrams: 04/12/19 07:58 04/13/19 04:48 Phys Exam - Physical Examination Mild distress, secondary to increased pain. HEENT: moist MMs, oral pharynx no lesions Neck: no JVD, supple Respiratory: no wheezing, clear to auscultation bilateral Resp. rate 21-22, appears tachypnic with short shallow breathing Cardiovascular: RRR, no significant murmur Gastrointestinal: soft, non-tender, positive bowel sounds Musculoskeletal: no edema, pulses present Neurological: normal sensation, moves all 4 limbs Psychiatric: normal affect, A&O x 3 Skin: normal turgor Deviation from normal: Red macular rash present on left forehead & face, bilateral chin, neck base -: Dry skin around mouth & bilateral arms. Dx/Plan (1) GAL (acute kidney injury) Code(s): N17.9 - ACUTE KIDNEY FAILURE, UNSPECIFIED Status: Acute (2) Heat stroke Code(s): T67.0XXA - HEATSTROKE AND SUNSTROKE, INITIAL ENCOUNTER Status: Acute Qualifiers: Encounter type: initial encounter Qualified Code(s): T67.0XXA - Heatstroke and sunstroke, initial encounter (3) Hypocalcemia Code(s): E83.51 - HYPOCALCEMIA Status: Acute (4) Hypokalemia Code(s): E87.6 - HYPOKALEMIA Status: Acute (5) Rhabdomyolysis Code(s): M62.82 - RHABDOMYOLYSIS Status: Acute Qualifiers: Encounter type: initial encounter - Plan Plan: 68 yo Female admitted for Rhabdomyolysis, GAL, and Electrolyte disturbances: 1. Heat Stroke -Patient had reported temp of 104F in the ambulance on 04/12, temp continues to be afebrile in hospital -Patient has altered memory of the last few days -parasthesias on arm and leg have resolved, paresthesias remain present on left face -Will discontinue IVF at this time, encouraged PO intake -Vitals stable, continue to monitor 2. Rhabdomyolysis -likely 2/2 heat stroke and/or patient stating that she was down for undetermined amount of time -CPK 1109 -> 888 (04/13) -IVF discontinued on 04/13, encourage PO intake -AST 42, ALT 20 on 04/12, PT 14.1, INR 1.1 -will continue to follow AM BMP & CK 3. GAL -creatinine 2.2 -> 1.46 (still above 0.83 in March 2019) -deesclate IVF to 125 ml/hr -will continue to follow 4. Hypokalemia -likely 2/2 combo of patient taking lasix + sweating profusely in the heat -hold home lasix -Potassium 1.6 on admission, is 2.8 on this AM labs--given 40meq K-dur by night team, continue KCl as scheduled BID -likely contributing to patient's weakness and paresthesias -Received 20meq K IV in [place] + 40meq K PO + 20meq K IV in [facility] ED -2am K pending -mag 2.1 -will continue to monitor and replete as necessary, will be given an additional 40meq K PO in addition to her scheduled BID dosing -BMP and Mg ordered for 12:00 today 5. Hypocalcemia -Ca 7.1 -> 7.6 -patient has osteoporosis, on alendronate -possibly contributed to by rhabdo -continue to monitor 6. Chest pain, SOB--likely secondary to fluid overload -d/c IVF, give 1 dose 40 mg Lasix -will order Troponin, D-dimer labs -Chest X-ray 1 view pending -repeat EKG Diet: CC VTE: SCDs 2/2 fall risk GI proph: home omeprazole Code Status: Full Dispo: Stable, Telemetry for cardiac monitoring while receiving IVF for rhabdo correction & continual monitoring of potassium. Anticipated LOS <48hrs. Addendum - Attending - Attending Attestation Date/Time: 04/13/19 1101 I personally evaluated the patient and discussed the management with Dr. Perrin. I agree with the History, Examination, Assessment and Plan documented above with any addition or exceptions noted below. Patient here for significant heat exhaustion, hypokalemia, hypovolemia, and mild rhabdo. Most of those are now resolved. Will d/c IVF and allow PO hydration. She has some evidence for volume overload today and we will restart her home lasix and give dose now. Anticipate her dyspnea and new pleural effusion are due to the amounts of fluid we have been giving her. Will continue to need potassium repletion and rechecks. CK downtrending and does not need repeating further.
[2019-04-13] MEDS: Rosuvastatin 20 MG TAB PO SCH (08:38)
[2019-04-13] MEDS ORDERED: Lactated Ringer's 1,000 ML IV SCH (08:38)
[2019-04-13] MEDS: Folic Acid 1 MG TAB PO SCH (08:38)
--- NOTE | 2019-04-13 09:31 | RAD ---
SINGLE VIEW CHEST: HISTORY: Shortness of breath. COMPARISON: 04/11/2019 FINDINGS: A single view of the chest shows a normal sized cardiomediastinal silhouette. Increased interstitial lung markings are present. There is slight obscurity of the left hemidiaphragm, which may represent atelectasis or a small pleural effusion. IMPRESSION: Left pleural effusion versus atelectasis. POS: [facility]
[2019-04-13] MEDS ORDERED: Furosemide 20 MG TAB PO SCH ×2 (10:45→19:00)
[2019-04-13 11:57] LABS: Troponin I 0.035 ng/mL (< 0.028)
[2019-04-13] MEDS: diphenhydrAMINE 25 MG CAP PO PRN ×2 (12:03→21:17)
[2019-04-13 12:07] LABS: Anion Gap 10 mmol/L (10-20); BUN (Urea Nitrogen) 7 mg/dL (9.8-20.1); Calc. Creatinine Clearance 41 mL/min (70-130); Calcium 8.2 mg/dL (7.8-10.44); Carbon Dioxide 26 mmol/L (23-31); Chloride 108 mmol/L (98-107); Estimated GFR-MDRD 37; Glucose 92 mg/dL (80-115); Magnesium 1.7 mg/dL (1.6-2.6); Potassium 3.3 mmol/L (3.5-5.1); Sodium 141 mmol/L (136-145)
[2019-04-13] MEDS ORDERED: Magnesium Sulfate 3 GM in Sodium Chloride 0.9% 100 ML IVPB SCH (14:15)
[2019-04-13 15:02] VITALS: BMI 28.1
[2019-04-13] MEDS ORDERED: Ipratropium Oral Inhaler (200 INHALATIONS) INH PRN (16:11)
[2019-04-13] MEDS: Mometasone/Formoterol 120 PUFF INHALER INH SCH (19:19)
[2019-04-13] MEDS: Doxepin HCl 25 MG CAP PO SCH (21:17)
[2019-04-14] MEDS: Ipratropium Bromide 2.5 ml Neb NEB SCH ×3 (00:51→12:57)
[2019-04-14] MEDS: Nicotine 14 MG PATCH TD SCH (01:00)
[2019-04-14 05:16] LABS: Chloride 106 mmol/L (98-107); Sodium 140 mmol/L (136-145)
[2019-04-14 05:26] LABS: BUN (Urea Nitrogen) 6 mg/dL (9.8-20.1); Calc. Creatinine Clearance 42 mL/min (70-130); Calcium 8.5 mg/dL (7.8-10.44); Carbon Dioxide 20 mmol/L (23-31); Estimated GFR-MDRD 38; Glucose 85 mg/dL (80-115); Magnesium 2.1 mg/dL (1.6-2.6)
[2019-04-14 05:31] LABS: Anion Gap 19 mmol/L (10-20)
--- NOTE | 2019-04-14 06:12 | PDOC.FM ---
- Subjective Subjective: Patient sitting in bed receiving breathing treatment this morning. She says she continues to feel better. She has not had any additional episodes of chest pain. Still feels short of breath this morning. Still has some tingling sensation on left face but has improved compared to yesterday. Rash still present on left face, chin, base of neck. Has very dry skin that she feels has gotten worse around her mouth. Patient states that her abdomen feels full, reports that she has only had 1 BM since she has been here, was overnight and was described as two very small stools. Patient originally thought she might be able to return home to stay with a neighbor who has air conditioning. However this is no longer the case. Her Air Conditioning is still broke in her RV and she says cannot be fixed until Saturday. - Objective Vital Signs & Weight: Vital Signs (12 hours) Temp Pulse Resp BP Pulse Ox 04/14/19 03:29 98.3 F 86 18 113/56 L 94 L 04/14/19 00:51 96 20 93 L 04/13/19 20:00 97.4 F L 88 16 148/65 H 95 04/13/19 19:05 83 16 95 Weight Admit Weight 56.518 kg Weight 67.585 kg I&O: 04/12/19 04/13/19 04/14/19 06:59 06:59 06:59 Intake Total 1985 7050 700 Output Total 1600 1600 1550 Balance 385 3505 -284 Result Diagrams: 04/12/19 07:58 04/14/19 04:50 Phys Exam - Physical Examination Constitutional: NAD HEENT: moist MMs, oral pharynx no lesions Neck: no JVD, supple Respiratory: no wheezing, clear to auscultation bilateral decreased breath sounds in left lower lobe Cardiovascular: RRR, no significant murmur Gastrointestinal: soft, non-tender, positive bowel sounds Musculoskeletal: no edema, pulses present Neurological: non-focal, normal sensation, moves all 4 limbs Psychiatric: normal affect, A&O x 3 Skin: normal turgor Deviation from normal: red macular dry rash on chin, left forehead, and base of neck Dx/Plan (1) GAL (acute kidney injury) Code(s): N17.9 - ACUTE KIDNEY FAILURE, UNSPECIFIED Status: Acute (2) Heat stroke Code(s): T67.0XXA - HEATSTROKE AND SUNSTROKE, INITIAL ENCOUNTER Status: Acute Qualifiers: Encounter type: initial encounter Qualified Code(s): T67.0XXA - Heatstroke and sunstroke, initial encounter (3) Hypocalcemia Code(s): E83.51 - HYPOCALCEMIA Status: Acute (4) Hypokalemia Code(s): E87.6 - HYPOKALEMIA Status: Acute (5) Rhabdomyolysis Code(s): M62.82 - RHABDOMYOLYSIS Status: Acute Qualifiers: Encounter type: initial encounter - Plan Plan: 68 yo Female admitted for Rhabdomyolysis, GAL, and Electrolyte disturbances: 1. Heat Stroke -Patient had reported temp of 104F in the ambulance on 04/12, temp continues to be afebrile in hospital -Patient has altered memory of the last few days -parasthesias on arm and leg have resolved, paresthesias remain present on left face -Will discontinue IVF at this time, encouraged PO intake -Vitals stable, continue to monitor 2. Rhabdomyolysis -likely 2/2 heat stroke and/or patient stating that she was down for undetermined amount of time -CPK 1109 -> 888 (04/13), will d/c AM CK due to continued downtrend -IVF discontinued on 04/13, encourage PO intake -AST 42, ALT 20 on 04/12, PT 14.1, INR 1.1 -will continue to follow AM BMP, electrolytes appear to have returned to normal this AM 3. GAL -creatinine 2.2 -> 1.46 -> 1.39 (still above 0.83 in March 2019) -IVF stopped on 04/13 -will continue to follow 4. Hypokalemia--resolved -likely 2/2 combo of patient taking lasix + sweating profusely in the heat -Home Lasix restarted this AM -Potassium 1.6 on admission, is 4.0 on this AM labs--did not require any additional KCl by night team, continue KCl as scheduled BID for today -likely contributing to patient's weakness and paresthesias -Received 20meq K IV in [place] + 40meq K PO + 20meq K IV in [facility] ED -mag 2.1 this AM, required Mg 3g IV on 04/13 (Mg 1.7 on 04/13) -will continue to monitor and replete as necessary 5. Hypocalcemia--resolved -Ca 7.1 -> 7.6 -> 8.5 -patient has osteoporosis, on alendronate -possibly contributed to by rhabdo -continue to monitor 6. Chest pain, SOB--likely secondary to fluid overload -d/c IVF, home Lasix restarted -given Lasix 40 mg x 2 doses on 04/13 -Troponin 0.04 -> 0.035 -D-dimer 1.64 (elevated) -Chest X-ray 1 view--left pleural effusion vs atelectasis -repeat EKG (04/13) was unchanged from admission EKG (04/12) 7. Constipation -will add Miralax daily prn, patient instructed to request if needed Diet: Calorie <2000 VTE: SCDs 2/2 fall risk GI proph: home omeprazole Code Status: Full Dispo: Stable, Telemetry for cardiac monitoring while receiving IVF for rhabdo correction & continual monitoring of potassium. Anticipated LOS <24hrs. She is medically ready for discharge home today. However states she does not have someplace to go that is cool/provides air conditioning. Will check with CM for possible resources. Addendum - Attending - Attending Attestation Date/Time: 04/14/19 4981 I personally evaluated the patient and discussed the management with Dr. Perrin. I agree with the History, Examination, Assessment and Plan documented above with any addition or exceptions noted below. Patient overall doing well. Less short of breath and has diuresed well. Reports she is ambulating without difficulty. Labs normalized. She is stable for discharge but now having issues in that it may not be safe to send her home due to lack of a/c in this current weather, which is the reason she became hospitalized. Will follow up with CM regarding possible resources.
[2019-04-14] MEDS: Mometasone/Formoterol 120 PUFF INHALER INH SCH (07:48)
[2019-04-14] MEDS ORDERED: metFORMIN 500 MG TAB PO SCH (08:00)
[2019-04-14] MEDS ORDERED: Polyethylene Glycol 3350 17 GM Packet PO PRN (08:22)
[2019-04-14] MEDS ORDERED: DULoxetine 30 MG CAP PO SCH (09:00)
[2019-04-14] MEDS ORDERED: Enoxaparin Sodium 40 MG/0.4 ML SYRINGE SC SCH (09:00)
[2019-04-14] MEDS ORDERED: Furosemide 20 MG TAB PO SCH (09:00)
[2019-04-14] MEDS ORDERED: Isosorbide Mononitrate (ER) 30 MG TAB PO SCH (09:00)
[2019-04-14] MEDS ORDERED: Loratadine 10 MG TAB PO SCH (09:00)
[2019-04-14] MEDS: Rosuvastatin 20 MG TAB PO SCH (09:22)
[2019-04-14] MEDS: Doxepin HCl 25 MG CAP PO SCH (09:22)
[2019-04-14] MEDS: Gabapentin 300 MG CAP PO SCH ×2 (09:23→15:35)
[2019-04-14] MEDS: Folic Acid 1 MG TAB PO SCH (09:24)
[2019-04-14 12:07] VITALS: BP 95/56; TEMP 98.6
--- NOTE | 2019-04-14 12:31 | PQF ---
FREDI KEN MOE ZARATE [id number] [facility]-291 [id number] CLINICAL DOCUMENTATION IMPROVEMENT CLARIFICATION FORM: ICD-10 Updated PLEASE DO AN ADDENDUM TO THE PROGRESS NOTE WITH ANY DOCUMENTATION UPDATES OR ADDITIONS AND CARRY THROUGH TO DC SUMMARY. THANK YOU. DATE: 04/14/2019 ATTN:DR. Chevy SINCLAIR Please exercise your independent, professional judgment in responding to the clarification form. Clinical indicators are provided on the bottom of this form for your review. Please check appropriate box(s): [ ] NSTEMI (OR type I) [ ] NSTEMI due to Demand Ischemia (AMI Type II) [ ] Demand Ischemia without OR [ X ] Other diagnosis: Rhabdomyolysis, Heat stroke [ ] Unable to determine In addition, please specify: Present on Admission (POA): [ X ] Yes [ ] No [ ] Unable to determine CLINICAL INDICATORS - SIGNS / SYMPTOMS / LABS 04/13 PN (DOTTIE) PT SITTING UP IN BED THIS MORNING , COMPLAINS OF NEW CHEST PAIN AND INCREASED SHORTNESS OF BREATH. STATES CP WAS OCCASIONAL YESTERDAY BUT HAS BECOME MORE CONSTANT OVERNIGHT. DX/PLAN: 6) CHEST PAIN, SOB-- LIKELY SECONDARY TO FLUID OVERLOAD 04/13 CHEST X RAY: IMPRESSION/ LEFT PLEURAL EFFUSION VERSUS ATELECTASIS 04/14 PN (DOTTIE) PT SITTING UP IN BE RECEIVING BREATHING TREATMENT THIS MORNING. SHE SAYS SHE CONTINUES TO FEEL BETTER. SHE HAS NOT HAD ANY ADDITIONAL EPISODES OF CHEST PAIN. STILL FEELS SHORT OF BREATH THIS MORNING. PLAN: CHEST PAIN, SOB -- LIKELY SECONDARY TO FLUID OVERLOAD 04/13 TROPONIN I 0.040 0.035 RISK: DX HEAT STROKE (SANJEEV) HX OF CURRENT TOBACCO ABUSE, COPD, HTN ( H & P / SANJEEV) C/O CHEST PAIN AND SOB (JUMA/DOTTIE) TREATMENTS: IV LASIX X 2 DOSES (04/13) IV FLUIDS DISCONTINUED TROPONIN I ORDERED REPEAT EKG (04/13) UNCHANGED FROM ADMISSION EKG ON (04/12) THANK YOU! [employer]ER[employer] (This form is maintained as a part of the permanent medical record) 2014 [employer]. All Rights Reserved [email or web address] [phone] MTDD
--- NOTE | 2019-04-14 22:55 | EKG ---
Test Reason : Blood Pressure : / mmHG Vent. Rate : 090 BPM Atrial Rate : 090 BPM P-R Int : 114 ms QRS Dur : 072 ms QT Int : 394 ms P-R-T Axes : 071 067 044 degrees QTc Int : 481 ms Sinus rhythm with Premature atrial complexes Low voltage QRS Borderline ECG When compared with ECG of 12-APR-2019 00:05, (Unconfirmed) Nonspecific T wave abnormality, improved in Inferior leads T wave inversion no longer evident in Lateral leads QT has shortened Confirmed by Allie KUMAR ([id number]) on 04/14/2019 10:55:20 PM Referred By: DOTTIE [place] Confirmed By:Allie KUMAR
--- NOTE | 2019-04-15 04:36 | DIS ---
DATE OF ADMISSION: 04/12/2019 DATE OF DISCHARGE: 04/14/2019 RESIDENT: Cassidy Perrin DO ADMITTING ATTENDING: Ramakrishna Yuen MD. DISCHARGE ATTENDIN. Ramakrishna Yuen MD. 2. Ginna Huerta MD. CONSULTATIONS: None. PROCEDURES: Chest x-ray on April 13; increased interstitial lung markings are present. There is slight obscurity of the left hemidiaphragm, which may represent atelectasis versus small pleural effusion. PRIMARY DIAGNOSES: 1. Heat stroke. 2. Rhabdomyolysis. SECONDARY DIAGNOSES: 1. Acute kidney injury. 2. Hypokalemia. 3. Hypocalcemia. 4. Chest pain, shortness of breath. 5. Constipation. DISCHARGE MEDICATIONS: 1. Tylenol with codeine No. 3 one tablet p.o. q.8 hours. 2. Alendronate sodium (Fosamax) 70 mg p.o. on . 3. Cetirizine 10 mg p.o. at bedtime. 4. Doxepin 25 mg p.o. b.i.d. 5. Duloxetine (Cymbalta) 60 mg p.o. daily. 6. Vitamin D2 at 50,000 units p.o. taken on Wednesdays. 7. Advair inhaler one puff b.i.d. 8. Folic acid 1 mg p.o. daily. 9. Furosemide (Lasix) 40 mg p.o. daily. 10. Gabapentin 600 mg p.o. t.i.d. 11. Isosorbide mononitrate 30 mg p.o. daily. 12. Metformin 250 mg p.o. q.a.m.-WM. 13. Metoprolol succinate 25 mg p.o. daily. 14. Nitroglycerin 0.4 mg p.o. q.5 minutes for chest pain. 15. Omeprazole 20 mg p.o. daily. 16. Rosuvastatin 20 mg p.o. daily. 17. Spiriva 18 mcg two puffs daily. DISCONTINUED MEDICATIONS: 1. Benadryl 25 mg p.o. q.4 hours p.r.n. for itching. 2. Lovenox 40 mg sc daily. 3. Loratadine (Claritin) 10 mg p.o. daily. 4. Nicotine patch 14 mg q.24 hours. 5. MiraLAX 1 cap p.o. daily for constipation. 6. Potassium chloride 40 mEq p.o. b.i.d. with meals. 7. Senna/docusate sodium 2 tabs p.o. b.i.d. as needed for constipation. HISTORY OF PRESENT ILLNESS/HOSPITAL COURSE: The patient was transferred to the [place] [facility] via EMS from the [facility]. She had originally presented there for feeling very warm at home and experiencing left arm, leg, and face tingling. The patient reports that she lives alone in an and that the AC broke this past , yet she had continued to live in it in the heat. Her memory of the last few days is altered. She normally uses a walker at home and remembers falling at one point, possibly or Saturday, and possibly again today. She remained on the ground for an unknown amount of time. She reports that during the last several days, she has been drinking a large amount of ice water due to increased thirst and to try to cool herself down. She reports sweating heavily. Her memory is questionable regarding the last few days. She self admits this. In the [facility] ED, upon arrival, an EMS member reported a temperature of 104 Fahrenheit. In the [place] ER, her creatinine was 2.2 and potassium was 1.6, chest x-ray was negative. Head CT completed there was negative. At the [place] ER, she received 3 L of fluid and 20 mEq of potassium IV. In the [facility] ER, she received an additional 40 mEq of potassium p.o. and 20 mEq of potassium IV and 1 L of normal saline. It was determined that the patient would be admitted to inpatient Family Medicine Service for further management and evaluation. The patient was admitted for heat stroke and rhabdomyolysis and acute kidney injury with electrolyte abnormalities. Once on Family Medicine Service, it was determined to hold her home Lasix and continue the rest of her home medications. The patient received greater than maintenance IV fluids with encouraged oral intake of fluids. She received additional potassium. She was also placed on telemetry for cardiac monitoring due to rhabdo correction and continued monitoring of potassium. The patient was seen on the morning of April 13. At that time, she reported a new chest pain and increased shortness of breath. She stated her chest pain had occurred occasionally throughout the day before, but had become more constant over night. She now noted she felt out of breath and appeared more short of breath on exam. The patient also reported her left face was burning, tingling, and now aching and that her rash had spread from her face to her chin and anterior neck. A cardiac workup including a troponin, D-dimer, chest x-ray, and repeat the EKG were ordered at that time. Her fluids were also discontinued and the patient was given one dose of 40 mg of Lasix. Her chest pain and shortness of breath were attributed to fluid overload. The patient's chest x-ray was negative for acute pathology, troponins were initially 0.04 and trended down to 0.35. However, there was no admitting troponin to compare to. D-dimer was elevated at 1.64. Repeat EKG showed no changes compared to admission EKG. The patient continued to improve throughout the day. Chest pain resolved after a few hours and shortness of breath improved once the patient had received her nebulizer treatment and home inhaler treatment. Her potassium had continued to improve throughout her stay from a low of 1.6, eventually to 4.0 on the polystyrene bead molder, April 14. Calcium corrected to normal on the morning of April 13. On the morning of April 14, the patient was seen and said she felt a lot better. She had no additional episode of chest pain during the night. She still felt a little short of breath, but it was much greatly improved. The patient additionally complained of some residual tingling sensation on her left face, but it also improved compared to the day before. Patient complained of some constipation and stated she had only had one bowel movement since admission, so MiraLAX was ordered and she subsequently had a bowel movement. The patient reported at this time that she did not have any where safe to go upon discharge that would provide air conditioning or a cool environment. Case Management was consulted to evaluate her home situation and to recommend any options for the patient should she be discharged before her air conditioning can be fixed in her RV. Case management suggested that the patient go to a homeless snf if she needed air conditioning. The patient stated that she had a friend who is a manager reliability of a [employer]. in her hometown and that this friend has offered for her to come sit in the [employer] during the daytime so that she can have AC. The patient additionally reports that her sister is driving in from [place] to help her fix the AC in her home and to also help her purchase a temporary AC. Sister is supposed to arrive on Saturday. The patient was strongly encouraged to seek cool environment during the day. She was instructed that her RV is not currently safe for her to stay in due to the current heat outside. The patient agrees that she cannot stay in her RV and voices understanding that if she returns to this environment, she will likely end up back with similar symptoms. On the afternoon of April 14, 2019, patient was deemed medically stable for discharge home. PERTINENT LABS: Labs on April 11, admission labs: BMP: Sodium 139, potassium 1.7, chloride 102, carbon dioxide 21, BUN 13, creatinine 2.05, glucose 64, calcium 7.1, magnesium 2.1, AST 46, ALT 20, alkaline phosphatase 89. CK is 1109. Labs on April 12: CBC: WBC 9.7, hemoglobin 14.2, hematocrit 41.3, platelets 280. PT 14.1, INR 1.1. Potassium 2.1 at 1:30 a.m. BMP at 8 a.m.: sodium 143, potassium 2.5, chloride 109, carbon dioxide 20, BUN 12, creatinine 1.88, glucose 66, calcium 7.6, magnesium 2.1, AST 42, ALT 20, alkaline phosphatase 83. CK is 1231. BMP at3:30 p.m.: sodium 140, potassium 3.4, chloride 109, carbon dioxide 22, BUN 10, creatinine 1.66, glucose 105, calcium 7.7. Labs on April 13: CK 888. D-dimer 1.64. Troponin 0.04, 0.035. BMP: sodium 141, potassium 3.3, chloride 108, carbon dioxide 26, BUN 7, creatinine 1.42, glucose 92, calcium 8.2, magnesium 1.7. Labs on April 14: BMP: sodium 140, potassium 4.0, chloride 106, carbon dioxide 20, BUN 6, creatinine 1.39, glucose 85, calcium 8.5, magnesium 2.1. DISPOSITION: Stable. DISCHARGE INSTRUCTIONS: 1. Location: Home, with instruction to seek air conditioned or cool environment during the daytime. 2. Diet: Regular. 3. Activity: As tolerated. 4. Follow up with PCP, Dr. Bird, in 7 days. Job ID: [id number] [facility]ITALM[facility]
[2019-04-16] MEDS ORDERED: Alendronate Sodium 70 mg Tablet PO SCH (15:45)
--- NOTE | 2019-04-18 15:14 | EKG ---
Test Reason : Blood Pressure : / mmHG Vent. Rate : 076 BPM Atrial Rate : 076 BPM P-R Int : 112 ms QRS Dur : 076 ms QT Int : 484 ms P-R-T Axes : 067 036 -59 degrees QTc Int : 544 ms Sinus rhythm with Premature supraventricular complexes Low voltage QRS Cannot rule out Anterior infarct , age undetermined Prolonged QT Abnormal ECG Confirmed by HARJINDER BERMAN D.O. ([id number]), graphic editor SHAWN CANALES ([id number]) on 04/18/2019 3:14:13 PM Referred By: Confirmed By:HARJINDER BERMAN D.O.
== END 2019-04-14 16:54 | disposition home or self-care (01) | DRG 683 ==
LOC: ERS 22:44 → 2NO 04-12 00:08
PROVIDERS: ADMIT Student in an Organized Health Care Education/Training Program; ATTEND Student in an Organized Health Care Education/Training Program
DX: N17.9 Acute kidney failure, unspecified (principal); T67.0XXA Heatstroke and sunstroke, initial encounter; M62.82 Rhabdomyolysis; I10 Essential (primary) hypertension; J44.9 Chronic obstructive pulmonary disease, unspecified; M81.0 Age-related osteoporosis without current pathological fracture; F17.210 Nicotine dependence, cigarettes, uncomplicated; E87.6 Hypokalemia; E83.51 Hypocalcemia; R73.03 Prediabetes; K59.00 Constipation, unspecified; X58.XXXA Exposure to other specified factors, initial encounter; Y92.89 Other specified places as the place of occurrence of the external cause; Y99.9 Unspecified external cause status; Z88.1 Allergy status to other antibiotic agents; Z79.84 Long term (current) use of oral hypoglycemic drugs; Z79.899 Other long term (current) drug therapy; Z90.49 Acquired absence of other specified parts of digestive tract
CPT/HCPCS: 36415; 71045; 80048; 80076; 82550; 83735; 84132; 84484; 85025; 85379; 85610; 93005; 93010; 94640; 96365; 99406; J1650; J3475; J3480; J3490; J7050; J7120; Q0163

== ENCOUNTER 2019-04-25 19:24 | Inpatient (IN) | payer MEDICARE, OTHER ==
[2019-04-25 20:43] LABS: ALT (SGPT) 14 U/L (8-55); AST (SGOT) 24 U/L (5-34); Albumin 2.8 g/dL (3.4-4.8); Alkaline Phosphatase 81 U/L (40-150); Anion Gap 19 mmol/L (10-20); BUN (Urea Nitrogen) 10 mg/dL (9.8-20.1); Bilirubin, Total 0.6 mg/dL (0.2-1.2); CK (CPK) 399 U/L (29-168); Calc. Creatinine Clearance 0 mL/min (70-130); Carbon Dioxide 24 mmol/L (23-31); Chloride 98 mmol/L (98-107); Estimated GFR-MDRD 30; Globulin 2.7 g/dL (2.4-3.5); Magnesium 1.8 mg/dL (1.6-2.6); Protein, Total 5.5 g/dL (6.0-8.3); Sodium 138 mmol/L (136-145)
[2019-04-25 20:50] LABS: Glucose 54 mg/dL (80-115)
[2019-04-25] MEDS ORDERED: Multivitamins, Adult 10 ML, Thiamine HCl 100 MG, Folic Acid 1 MG in Dextrose 5 %-0.45 %... IV SCH (21:45)
--- NOTE | 2019-04-25 22:15 | PDOC.FPRHP ---
- History of Present Illness Chief Complaint: Weakness History of Present Illness: 68yo female presents to the ED from [place] for evaluation of dehydration and dizziness. Pt states she lives in an and has not had AC for the past few days. Review of the pt's record show she was admitted 04/12 for very similar problems and complaints. Pt states she has been drinking a lot of water and eating very little during this time. In the room pt was very sleepy and was poor historian. [facility] show pt was given 2 L of saline , calcium gluconate. The pt was febrile, had an elevated CK at 486, creatinine 2.12 and potassium 1.7. Pt was given rocephin for UTI. Pt did verbalize that her medications have not changed since last admission. - Allergies/Adverse Reactions Allergies Allergy/AdvReac Type Severity Reaction Status Date / Time erythromycin base Allergy Verified 04/12/19 01:58 tetracycline Allergy Verified 04/12/19 01:58 - Home Medications Medication Instructions Recorded Confirmed Type Alendronate Sodium [Fosamax] 70 mg PO Q7D 08/02/17 04/26/19 History Cetirizine HCl [Zyrtec] 10 mg PO HS 08/02/17 04/26/19 History DULoxetine [Cymbalta] 60 mg PO DAILY 08/02/17 04/26/19 History Ergocalciferol (Vitamin D2) 50,000 unit PO Q7D 08/02/17 04/26/19 History [Vitamin D2] Tiotropium [Spiriva Handihaler] 2 inh INH DAILY 08/02/17 04/26/19 History Folic Acid [Folvite] 1 mg PO DAILY tab 08/03/17 04/26/19 Rx Metoprolol Succinate [Toprol XL] 25 mg PO DAILY #30 tab 08/03/17 04/26/19 Rx Acetaminophen With Codeine 1 tablet PO Q8HR 04/12/19 04/26/19 History [Tylenol with Codeine #3] Doxepin HCl 25 mg PO BID 04/12/19 04/26/19 History Furosemide 40 mg PO DAILY 04/12/19 04/26/19 History Gabapentin 600 mg PO TID 04/12/19 04/26/19 History Rosuvastatin [Crestor] 20 mg PO DAILY 04/12/19 04/26/19 History Tiotropium [place] [Spiriva] 1 puff INH BID 04/12/19 04/26/19 History metFORMIN [Glucophage] 250 mg PO QAM-WM 04/12/19 04/26/19 History Fluticasone/Salmeterol [Advair 1 inh IH BID 04/13/19 04/26/19 History Diskus 250/50] Isosorbide Mononitrate [Isosorbide 30 mg PO DAILY #30 tab.er.24h 04/14/19 Rx Mononitrate ER] Nitroglycerin [Nitrostat] 0.4 mg PO Q5MIN PRN #30 tab 04/14/19 04/26/19 Rx Omeprazole 20 mg PO DAILY #30 capsule.dr 04/14/19 04/26/19 Rx - History PMHx: Chronic back pain, osteoporosis, GERD, HLD, HTN, asthma, COPD, anemia, pre -DM, heart block, anxiety PSHx: Bilateral cataract, appy, lap rogerio, x3 FHx: non contributory Social: 0.5ppd smoker, no alcohol or drug use - Review of Systems General: reports: fever/chills (febrile in [place]), fatigue Respiratory: denies: cough, shortness of breath Cardiovascular: denies: chest pain, palpitation, edema Gastrointestinal: denies: nausea, vomiting, diarrhea Genitourinary: denies: incontinence, dysuria, polyuria Skin: denies: rashes, lesions Musculoskeletal: denies: pain, tenderness Neurological: reports: weakness (generalized), other (dizziness) Psychological: denies: anxiety, depression - Vital signs Vitals: BP 117/60, HR 74, RR 16, Temp 97.9, O2 99% on 2L, Wt: 54kg - Physical Exam Constitutional: NAD, other (drowsy on exam) HEENT: normocephalic and atraumatic, EOMI, other (dry MM) Neck: FROM, no JVD Heart: RRR, normal S1/S2, no murmurs/rubs/gallops Lungs: no respiratory distress -Lungs: Few diffuse crackles/wheezes Abdomen: soft, non-tender, bowel sounds present Musculoskeletal: normal structure, normal tone Neurological: no focal deficit Skin: capillary refill <2 seconds, no jaundice Heme/Lymphatic: no unusual bruising or bleeding, no purpura Psychiatric: normal mood and affect, intact recent and remote memory FMR H&P: Results - Labs Result Diagrams: 04/26/19 04:21 04/26/19 06:17 Lab results: Sodium 138 mmol/L (136-145) 04/25/19 20:12 Potassium 3.0 mmol/L (3.5-5.1) L 04/25/19 20:12 Chloride 98 mmol/L (98-107) 04/25/19 20:12 Carbon Dioxide 24 mmol/L (23-31) 04/25/19 20:12 BUN 10 mg/dL (9.8-20.1) 04/25/19 20:12 Creatinine 1.69 mg/dL (0.6-1.1) H 04/25/19 20:12 Glucose 54 mg/dL (80-115) L* 04/25/19 20:12 Calcium 7.0 mg/dL (7.8-10.44) L 04/25/19 20:12 Total Bilirubin 0.6 mg/dL (0.2-1.2) 04/25/19 20:12 AST 24 U/L (5-34) 04/25/19 20:12 ALT 14 U/L (8-55) 04/25/19 20:12 Alkaline Phosphatase 81 U/L (40-150) 04/25/19 20:12 Creatine Kinase 399 U/L (29-168) H 04/25/19 20:12 Serum Total Protein 5.5 g/dL (6.0-8.3) L 04/25/19 20:12 Albumin 2.8 g/dL (3.4-4.8) L 04/25/19 20:12 FMR H&P: A/P - Problem List (1) Heat stroke Current Visit: No Status: Deleted Code(s): T67.0XXA - HEATSTROKE AND SUNSTROKE, INITIAL ENCOUNTER Qualifiers: Encounter type: initial encounter Qualified Code(s): T67.0XXA - Heatstroke and sunstroke, initial encounter (2) Hypoglycemia Current Visit: Yes Status: Acute Code(s): E16.2 - HYPOGLYCEMIA, UNSPECIFIED (3) GAL (acute kidney injury) Current Visit: No Status: Acute Code(s): N17.9 - ACUTE KIDNEY FAILURE, UNSPECIFIED (4) Hypokalemia Current Visit: No Status: Acute Code(s): E87.6 - HYPOKALEMIA (5) COPD (chronic obstructive pulmonary disease) Current Visit: No Status: Chronic Qualifiers: COPD type: unspecified COPD Qualified Code(s): J44.9 - Chronic obstructive pulmonary disease, unspecified (6) HTN (hypertension) Current Visit: No Status: Chronic Code(s): I10 - ESSENTIAL (PRIMARY) HYPERTENSION Qualifiers: Hypertension type: unspecified Qualified Code(s): I10 - Essential (primary ) hypertension - Plan Acute Dehydration Pt reports 3 days of no AC but no AC during previous admission on 04/12, decreased PO intake ED: 2L NS, 1L banana bag -D5LR @ 125mL -Encourage PO intake Heat Stroke Initially febrile - resolved, dehydrated, AMS - drowsy upon examination - IVF and maintain temp GAL BUN/Cr ~6 Likely prerenal 2/2 dehydration -IVF as above -Trend renal function Hypoglycemia Glucose 54, improved to 66 after 1amp D50 -D5 in fluids, transition once pt tolerating adequate PO -Accuchecks q2h Hypokalemia [place] 1.7 - replaced, now 3.0 -Will repeat electrolytes in the AM Asymptomatic bacteruria Patient without symptoms, s/p 1g rocephin in ED -Will monitor for symptoms Prolonged QT >500 [place], 355 here after fluids and electrolyte repleat -Will monitor Elevated CK 486->399 after fluids -Will monitor Dispo: Admit medical obs VTE: Diet: Regular Fluids: D5LR @ 125mL/hr Code Status: Full FMR H&P: Upper Level - Pertinent history 68 y/o F PMHx HTN, COPD, osteoporosis, and pre-diabetes recently admitted for heat stroke presents to the ED due to dizziness and weakness. She reports her A/ c went out in her RV about 3 days ago and she has had decreased appetite so she has really only been drinking water. She reports loose stools due to the decreased po intake. She was in and out of sleep and very lethargic during my evaluation so I was unable to get much more history from her. - Pertinent findings Vitals: BP 117/60, HR 74, RR 16, Temp 97.9, O2 99% on 2L PE: Gen - drowsy, lethargic HEENT - dry mucous membranes CV - RRR, no murmurs Lungs - CTAB, no wheezes Abd - soft, NTTP - Plan Date/Time: 04/25/19 1775 I, Raven Avalos MD, PGY-3, have evaluated this patient and agree with findings/ plan as outlined by internal medicine nurse practitioner resident. Pertinent changes/additions are listed here. Acute Dehydration Pt with 3 days of decreased PO intake and living in RV without A/C. s/p 2L NS, 1L banana bag -D5LR @ 125mL/hr -Encourage PO intake GAL Likely prerenal 2/2 dehydration -Will give fluids as above -Monitor Hypoglycemia Glucose 54, improved to 66 after 1amp D50 -Will do accuchecks q2h to monitor closely -D5 in fluids, will change to regular LR once glucose stabilized Hypokalemia Initially 1.7, has improved to 3.0 after repleting -Will repeat electrolytes in the AM Asymptomatic bacteruria Patient without symptoms, s/p rocephin -Will monitor for symptoms Prolonged QT Was prolonged at [place] ED, but was 355 by the time she arrived in our ED -Will monitor Elevated CK 486->399 after fluids -Will monitor Dispo: Obs on medical Code status: Full Addendum - Attending - Attending Attestation Date/Time: 04/26/19 7407 I personally evaluated the patient and discussed the management with Dr. Gracia. I agree with the History, Examination, Assessment and Plan documented above with any addition or exceptions noted below. Lul had a heat related illness, but did not require cooling measures typically employed with heat stroke.
[2019-04-25] MEDS ORDERED: Dextrose 50% Abboject 50 ML SYRINGE ONE (22:24)
[2019-04-25] MEDS ORDERED: Dextrose 50% Abboject 50 ML SYRINGE SLOW IVP PRN (23:58)
[2019-04-25] MEDS ORDERED: Dextrose 5% in Water 1,000 ML IV PRN (23:58)
[2019-04-26] MEDS: Dextrose 5%-Lactated Ringers 1,000 ML IV SCH ×3 (04:19→22:04)
[2019-04-26 05:22] LABS: #Basophils 0.1 thou/uL (0.0-0.2); #Eosinphils 0.1 thou/uL (0.0-0.7); #Lymphocytes 1.4 thou/uL (1.20-3.40); #Neutrophils 4.7 thou/uL (1.40-6.50); %Basophils 0.7 % (0.0-1.0); %Eosinophils 1.2 % (0.0-10.0); %Lymphocytes 19.7 % (21.0-51.0); %Monocytes 13.7 % (0.0-10.0); %Neutrophils 64.7 % (42.0-75.0); Hemoglobin 12.1 g/dL (12.0-16.0); Mean Corpuscular HGB CONC 33.1 g/dL (32.0-36.0); Mean Corpuscular Hemoglobin 30.4 pg (27.0-31.0); Mean Corpuscular Volume 91.9 fL (78.0-98.0); Mean Platelet Volume 6.7 fL (7.4-10.4); Platelet Count 363 thou/uL (130-400); RBC Distribution Width 13.5 % (11.5-14.5); Red Blood Cell (RBC) Count 3.99 mill/uL (4.20-5.40); White Blood Cell (WBC) Count 7.3 thou/uL (4.8-10.8)
[2019-04-26 05:40] LABS: Anion Gap 12 mmol/L (10-20); BUN (Urea Nitrogen) 9 mg/dL (9.8-20.1); Calc. Creatinine Clearance 30 mL/min (70-130); Calcium 7.1 mg/dL (7.8-10.44); Carbon Dioxide 30 mmol/L (23-31); Chloride 98 mmol/L (98-107); Estimated GFR-MDRD 33; Glucose 129 mg/dL (80-115); Sodium 138 mmol/L (136-145)
[2019-04-26 05:43] LABS: Potassium 1.8 mmol/L (3.5-5.1)
[2019-04-26] MEDS ORDERED: Potassium Chloride 20 MEQ TAB PO SCH ×4 (05:45→20:45)
--- NOTE | 2019-04-26 06:06 | PDOC.FM ---
- Subjective Subjective: Patient seen in room this morning. She states that she is having some chest discomfort and says her heart "feels funny". She has also said her muscles have started "twitching". She states that since her last admission she did purchase a portable AC unit but never had it installed. She has remained staying in her RV with hot temps for the past 2 weeks. She did not seek air-conditioned areas. She has also not had any follow up appointments since last admission. She is visibly upset during the interview about being back in the hospital. - Objective MAR Reviewed: Yes Vital Signs & Weight: Vital Signs (12 hours) Temp Pulse Resp BP Pulse Ox 04/25/19 23:58 97.9 F 83 18 110/67 95 Weight Weight 54 kg Result Diagrams: 04/26/19 04:21 04/26/19 06:17 Phys Exam - Physical Examination Mild distress, A&O x 3 HEENT: sclera anicteric dry mucous membranes Neck: no JVD, full ROM Respiratory: no wheezing, no rhonchi, clear to auscultation bilateral O2 sat at 87% RA irregular rhythm, rate in 60s Gastrointestinal: soft, no distention, positive bowel sounds Musculoskeletal: no edema, pulses present Neurological: normal sensation, moves all 4 limbs muscle spasms present in upper & lower extremities Psychiatric: normal affect, A&O x 3 Deviation from normal: dry skin on face, poor skin turgor Dx/Plan (1) Hypoglycemia Code(s): E16.2 - HYPOGLYCEMIA, UNSPECIFIED Status: Acute (2) GAL (acute kidney injury) Code(s): N17.9 - ACUTE KIDNEY FAILURE, UNSPECIFIED Status: Acute (3) Hypocalcemia Code(s): E83.51 - HYPOCALCEMIA Status: Acute (4) Hypokalemia Code(s): E87.6 - HYPOKALEMIA Status: Acute (5) COPD (chronic obstructive pulmonary disease) Status: Chronic Qualifiers: COPD type: unspecified COPD Qualified Code(s): J44.9 - Chronic obstructive pulmonary disease, unspecified (6) HTN (hypertension) Code(s): I10 - ESSENTIAL (PRIMARY) HYPERTENSION Status: Chronic Qualifiers: Hypertension type: unspecified Qualified Code(s): I10 - Essential (primary ) hypertension (7) Heat exhaustion Code(s): T67.5XXA - HEAT EXHAUSTION, UNSPECIFIED, INITIAL ENCOUNTER Status: Acute Qualifiers: Encounter type: initial encounter Qualified Code(s): T67.5XXA - Heat exhaustion, unspecified, initial encounter - Plan Plan: Pt is a 68 yo female with PMHx of HTN & COPD who was recently admitted for heat stroke 2 weeks ago, who now presents with dehydration, GAL, and hypoglycemia: #Heat Exhaustion, Acute Dehydration -received 2L NS & 1L banana bag in ER -D5LR @ 125mL/hr, anticipate transition to LR when BG stable -Encourage PO intake -home Lasix held #GLA -Likely prerenal 2/2 volume depletion -Will give IVF as above -Monitor on AM BMP -home Metformin held #Hypoglycemia -admission Glucose 54, improved to 66 after 1amp D50 -Will do accuchecks q2h to monitor closely, overnight began tolerating PO intake and BG checks all 100< -D5LR fluids, will change to regular LR once glucose stabilized #Hypokalemia, Hypocalcemia, Hypophosphatemia -Calcium 7.1, Phosphate 1.0--both replaced x 1 dose each -Potassium initially 1.7, has improved to 3.0 after repleting (04/25)-> 1.8 on repeat AM BMP, given 40 meq KCL IV & 40 meq KCL PO at 0600 & 0730, repeat BMP at 1100 -Stat EKG pending -monitor AM BMP -replete with PO or IV KCl as needed -transfer to Telemetry #Asymptomatic bacteruria -Patient without symptoms, s/p rocephin -Will monitor for symptoms #Prolonged QT -Was prolonged at [place] ED, but was 355 by the time she arrived in our ED -Will monitor -transfer to Telemetry #Elevated CK -486->399 after fluids -Will monitor #COPD -continue home meds: Advair, Spiriva -Duonebs prn -O2 via N/C to keep sat >92% #HTN -continue home meds: Metoprolol succinate 25mg daily Diet: Regular VTE: SCDs Code status: FULL Dispo: Admitted to Obs on medical with request for transfer to Telemetry placed. Continue to monitor Potassium, Calcium, Magnesium, and Phosphate levels today, encourage PO intake, monitor labs. Anticipated LOS <48 hrs. Addendum - Attending - Attending Attestation Date/Time: 04/26/19 1007 I personally evaluated the patient and discussed the management with Dr. Perrin. I agree with the History, Examination, Assessment and Plan documented above with any addition or exceptions noted below.
[2019-04-26] MEDS ORDERED: Nitroglycerin 0.4 MG TAB (25 Tab Bottle) SL PRN (06:13)
[2019-04-26] MEDS ORDERED: Potassium Chloride 20 MEQ TAB PO ONE (06:15)
[2019-04-26] MEDS ORDERED: Potassium Chloride 40 MEQ in Sodium Chloride 0.9% 500 ML IVPB SCH (06:30)
[2019-04-26 06:43] LABS: Potassium 1.8 mmol/L (3.5-5.1)
[2019-04-26] MEDS ORDERED: PHOS-NAK 1 PKT PACK PO SCH (06:45)
[2019-04-26 06:51] LABS: Magnesium 1.8 mg/dL (1.6-2.6)
[2019-04-26] MEDS ORDERED: Calcium Gluconate 4.6 MEQ in Sodium Chloride 0.9% 100 ML IVPB SCH (08:21)
[2019-04-26] MEDS: Ipratropium Bromide 2.5 ml Neb NEB SCH ×3 (08:29→19:34)
[2019-04-26] MEDS ORDERED: Calcium Gluconate 100 MG/ML 10 ML IVPB SCH (08:30)
[2019-04-26] MEDS ORDERED: Spiriva 18 MCG CAP (Box of 5 Caps) INH SCH ×2 (09:00)
[2019-04-26] MEDS ORDERED: Non-Formulary Item 1 EACH (Fluticasone/Salmeterol [Advair Diskus 250/50] 1 INH) IH SCH (09:00)
[2019-04-26] MEDS ORDERED: Non-Formulary Item 1 EACH (Omeprazole [Omeprazole] 20 MG) PO SCH (09:00)
[2019-04-26] MEDS ORDERED: Doxepin HCl 25 MG CAP PO SCH (09:00)
[2019-04-26] MEDS: DULoxetine 30 MG CAP PO SCH (10:43)
[2019-04-26] MEDS: Gabapentin 300 MG CAP PO SCH ×3 (10:44→21:58)
[2019-04-26] MEDS: Folic Acid 1 MG TAB PO SCH (10:44)
[2019-04-26] MEDS: Rosuvastatin 20 MG TAB PO SCH (10:44)
[2019-04-26] MEDS: Isosorbide Mononitrate (ER) 30 MG TAB PO SCH (10:45)
[2019-04-26 12:07] LABS: Anion Gap 14 mmol/L (10-20); BUN (Urea Nitrogen) 7 mg/dL (9.8-20.1); Calc. Creatinine Clearance 32 mL/min (70-130); Calcium 7.5 mg/dL (7.8-10.44); Carbon Dioxide 23 mmol/L (23-31); Chloride 102 mmol/L (98-107); Estimated GFR-MDRD 36; Glucose 89 mg/dL (80-115); Magnesium 1.7 mg/dL (1.6-2.6); Phosphorus 1.3 mg/dL (2.3-4.7); Potassium 3.3 mmol/L (3.5-5.1); Sodium 136 mmol/L (136-145)
[2019-04-26] MEDS ORDERED: Potassium Phosphate 15 MMOL in Sodium Chloride 0.9% 250 ML 250 ML IVPB SCH (12:15)
[2019-04-26] MEDS: Acetaminophen/Codeine 30-300mg Tablet PO SCH ×2 (14:17→15:57)
[2019-04-26] MEDS: Mometasone/Formoterol 120 PUFF INHALER INH SCH (19:35)
[2019-04-26 20:25] LABS: Anion Gap 12 mmol/L (10-20); BUN (Urea Nitrogen) 6 mg/dL (9.8-20.1); Calc. Creatinine Clearance 35 mL/min (70-130); Calcium 7.5 mg/dL (7.8-10.44); Carbon Dioxide 26 mmol/L (23-31); Chloride 104 mmol/L (98-107); Estimated GFR-MDRD 39; Glucose 128 mg/dL (80-115); Magnesium 1.6 mg/dL (1.6-2.6); Phosphorus 2.7 mg/dL (2.3-4.7); Potassium 3.3 mmol/L (3.5-5.1); Sodium 139 mmol/L (136-145)
[2019-04-26] MEDS ORDERED: Non-Formulary Item 1 EACH (Cetirizine Hcl [Zyrtec] 10 MG) PO SCH (21:00)
[2019-04-26] MEDS: Calcium Carbonate 500 MG ChewTAB PO SCH (21:57)
[2019-04-26] MEDS: Loratadine 10 MG TAB PO SCH (21:58)
[2019-04-27] MEDS ORDERED: Lactated Ringer's 500 ML IV SCH ×2 (00:15→00:30)
[2019-04-27] MEDS: Acetaminophen/Codeine 30-300mg Tablet PO SCH ×4 (00:35→20:26)
[2019-04-27] MEDS: Ipratropium Bromide 2.5 ml Neb NEB SCH ×5 (00:51→23:22)
[2019-04-27] MEDS: Dextrose 5%-Lactated Ringers 1,000 ML IV SCH ×2 (04:01→08:43)
--- NOTE | 2019-04-27 05:55 | PDOC.FM ---
- Subjective Subjective: Patient doing okay today. No acute events overnight. Patient reports of diarrhea and left-sided abdominal pain, which is chronic. Reports that she is tolerating PO intake well. States that she has contacted her insurance company regarding her a/c unit, but to her knowledge it has not yet been installed. She is going to keep calling to see when it will be installed. Denies cp, SOB, dysuria. - Objective MAR Reviewed: Yes Vital Signs & Weight: Vital Signs (12 hours) Temp Pulse Resp BP Pulse Ox 04/27/19 03:09 97.8 F 61 18 107/58 L 94 L 04/27/19 02:00 69 106/56 L 04/27/19 00:51 78 12 96 04/27/19 00:00 97.9 F 91 89/54 L 04/26/19 20:12 98.5 F 74 18 98/55 L 93 L 04/26/19 19:34 74 14 96 Weight Weight 54 kg I&O: 04/25/19 04/26/19 04/27/19 06:59 06:59 06:59 Intake Total 1175 2183 Output Total 900 1050 Balance 275 1133 Result Diagrams: 04/26/19 04:21 04/27/19 05:11 EKG Reviewed by me: Yes (sinus with PACs) Phys Exam - Physical Examination Constitutional: NAD HEENT: PERRLA, moist MMs Neck: supple, full ROM Respiratory: no wheezing, clear to auscultation bilateral Cardiovascular: RRR, no significant murmur Gastrointestinal: soft ttp on left upper and lower quadrants Musculoskeletal: no edema, pulses present Neurological: non-focal, normal sensation Psychiatric: normal affect, A&O x 3 Skin: no rash, normal turgor Dx/Plan (1) Hypoglycemia Code(s): E16.2 - HYPOGLYCEMIA, UNSPECIFIED Status: Acute (2) GAL (acute kidney injury) Code(s): N17.9 - ACUTE KIDNEY FAILURE, UNSPECIFIED Status: Acute (3) Hypokalemia Code(s): E87.6 - HYPOKALEMIA Status: Acute (4) HTN (hypertension) Code(s): I10 - ESSENTIAL (PRIMARY) HYPERTENSION Status: Acute (5) COPD (chronic obstructive pulmonary disease) Status: Chronic Qualifiers: COPD type: unspecified COPD Qualified Code(s): J44.9 - Chronic obstructive pulmonary disease, unspecified - Plan Plan: Pt is a 68 yo female with PMHx of HTN, COPD, and recent admission for heat stroke 2 weeks ago, who now presents with dehydration, GAL, and hypoglycemia: #Heat Exhaustion, Acute Dehydration -received 2L NS & 1L banana bag in ER -D5LR @ 125mL/hr, anticipate transition to LR when BG stable -Encourage PO intake -continue to old home Lasix #GAL -Likely prerenal 2/2 volume depletion, BUN/creatinine 5.9 on admission -Creatinine today 1.11, down from 1.69 -Continue IVF as above -Continue to monitor -continue to hold home Metformin #Hypoglycemia -admission Glucose 54, improved to 66 after 1amp D50 -Will do accuchecks q2h to monitor closely, overnight began tolerating PO intake and BG checks 88-132 -D5LR fluids, will change to regular LR once glucose stabilized #Hypokalemia, Hypocalcemia, Hypophosphatemia -Calcium 7.1, Phosphate 1.0--both replaced x 1 dose each -Potassium initially 1.7> 3.0 after repleting (04/25)-> 1.8 on repeat 04/26AM BMP , given 40 meq KCL IV & 40 meq KCL PO at 0600 & 0730, repeat BMP at 1100 shows K + at 3.3; Potassium 2.8, given 80meq KCl PO; Phosphorus 2.1, given 15mmol sodium phosphate -Monitor afternoon BMP, phos -replete with PO or IV KCl as needed -cortisol ordered -urine studies ordered -continue to monitor on tele #Diarrhea -patient reports that this is chronic -stool studies, cdiff, ova and parasites #Asymptomatic bacteruria -Patient without symptoms, s/p rocephin -Will monitor for symptoms #Prolonged QT -Was prolonged at [place] ED, but was 355 by the time she arrived in our ED -Will monitor on tele #Elevated CK -486->399>250 after fluids -Will monitor #COPD -continue home meds: Advair, Spiriva -Duonebs prn -O2 PRN to keep O2 sat >92% #HTN -continue home meds: Metoprolol succinate 25mg daily Diet: Regular VTE: SCDs Code status: FULL Dispo: Continued monitoring on telemetry. Continue to monitor Potassium, Calcium , Magnesium, and Phosphate levels today, encourage PO intake, monitor labs.
[2019-04-27 06:13] LABS: Anion Gap 12 mmol/L (10-20); BUN (Urea Nitrogen) 5 mg/dL (9.8-20.1); CK (CPK) 250 U/L (29-168); Calc. Creatinine Clearance 46 mL/min (70-130); Carbon Dioxide 24 mmol/L (23-31); Chloride 108 mmol/L (98-107); Estimated GFR-MDRD 49; Glucose 108 mg/dL (80-115); Phosphorus 2.1 mg/dL (2.3-4.7); Potassium 2.8 mmol/L (3.5-5.1); Sodium 141 mmol/L (136-145)
[2019-04-27] MEDS: Mometasone/Formoterol 120 PUFF INHALER INH SCH ×2 (06:55→18:07)
[2019-04-27] MEDS ORDERED: Potassium Chloride 20 MEQ TAB PO SCH (07:00)
[2019-04-27] MEDS: Folic Acid 1 MG TAB PO SCH (08:42)
[2019-04-27] MEDS: Calcium Carbonate 500 MG ChewTAB PO SCH ×2 (08:42→20:27)
[2019-04-27] MEDS: Gabapentin 300 MG CAP PO SCH ×3 (08:42→20:26)
[2019-04-27] MEDS: DULoxetine 30 MG CAP PO SCH (08:42)
[2019-04-27] MEDS: Isosorbide Mononitrate (ER) 30 MG TAB PO SCH (08:42)
[2019-04-27] MEDS: Rosuvastatin 20 MG TAB PO SCH (08:42)
[2019-04-27] MEDS ORDERED: Sodium Phosphate 15 MMOL in Sodium Chloride 0.9% 250 ML 250 ML IVPB SCH (09:00)
[2019-04-27 11:28] LABS: Creatinine, Urine 21.7 mg/dL (47-110); Potassium, Urine 22.4 mmol/L
--- NOTE | 2019-04-27 12:20 | PRG ---
DATE OF SERVICE: 04/27/2019 Ms. Zuñiga is a 68-year-old lady who was admitted with some heat exhaustion secondary to the fact that her ACS is out at her trailer home. She looks and feels much better this morning, but is having some diarrhea, which is a new symptom. She is over her heat exhaustion. We will proceed with workup for her diarrhea. She has hypokalemia, which we are correcting. Job ID: [id number]
[2019-04-27 14:35] LABS: Anion Gap 13 mmol/L (10-20); BUN (Urea Nitrogen) 5 mg/dL (9.8-20.1); Calc. Creatinine Clearance 49 mL/min (70-130); Calcium 8.2 mg/dL (7.8-10.44); Carbon Dioxide 21 mmol/L (23-31); Chloride 108 mmol/L (98-107); Estimated GFR-MDRD 52; Glucose 98 mg/dL (80-115); Potassium 4.1 mmol/L (3.5-5.1); Sodium 138 mmol/L (136-145)
[2019-04-27 14:58] LABS: Phosphorus 2.3 mg/dL (2.3-4.7)
[2019-04-27] MEDS: Lactated Ringer's 1,000 ML IV SCH (17:29)
[2019-04-27] MEDS: Loratadine 10 MG TAB PO SCH (20:27)
[2019-04-28] MEDS: Acetaminophen/Codeine 30-300mg Tablet PO SCH ×3 (05:13→20:33)
--- NOTE | 2019-04-28 06:04 | PDOC.FM ---
- Subjective Subjective: Patient doing well this morning. Has not been able to contact insurance company yet about her air conditioner, reports that she plans to call today. Denies cp or sob. Reports of left-sided abdominal pain and bloating. Reports that diarrhea is chronic, though per nursing she had firm stool last night. - Objective Vital Signs & Weight: Vital Signs (12 hours) Temp Pulse Resp BP Pulse Ox 04/28/19 04:00 98.4 F 86 18 127/56 L 92 L 04/28/19 00:00 97.9 F 117/70 04/27/19 23:22 72 18 92 L 04/27/19 19:15 99.4 F 82 18 126/69 95 04/27/19 18:05 81 18 92 L Weight Admit Weight 54 kg Weight 59.965 kg I&O: 04/26/19 04/27/19 04/28/19 06:59 06:59 06:59 Intake Total 1175 4526 2000 Output Total 900 2325 1000 Balance 275 2201 1000 Result Diagrams: 04/26/19 04:21 04/28/19 05:13 EKG Reviewed by me: Yes (Sinus, 60s, some PJCs) Phys Exam - Physical Examination Constitutional: NAD HEENT: moist MMs, sclera anicteric Neck: supple, full ROM Respiratory: no wheezing, clear to auscultation bilateral Cardiovascular: RRR, no significant murmur Gastrointestinal: soft ttp left upper and lower quadrants Musculoskeletal: no edema, pulses present Neurological: non-focal, moves all 4 limbs Lymphatic: no nodes Psychiatric: normal affect, A&O x 3 Skin: no rash, normal turgor Dx/Plan (1) Hypoglycemia Code(s): E16.2 - HYPOGLYCEMIA, UNSPECIFIED Status: Acute (2) GAL (acute kidney injury) Code(s): N17.9 - ACUTE KIDNEY FAILURE, UNSPECIFIED Status: Acute (3) Hypokalemia Code(s): E87.6 - HYPOKALEMIA Status: Acute (4) HTN (hypertension) Code(s): I10 - ESSENTIAL (PRIMARY) HYPERTENSION Status: Acute (5) COPD (chronic obstructive pulmonary disease) Status: Chronic Qualifiers: COPD type: unspecified COPD Qualified Code(s): J44.9 - Chronic obstructive pulmonary disease, unspecified (6) Asymptomatic bacteriuria Code(s): R82.71 - BACTERIURIA Status: Acute - Plan Plan: Pt is a 68 yo female with PMHx of HTN, COPD, and recent admission for heat stroke 2 weeks ago, who now presents with dehydration, GAL, and hypoglycemia: #Heat Exhaustion, Acute Dehydration -received 2L NS & 1L banana bag in ER -Switched from D5LR @ 125mL/hr to LR@75/hr yesterday -Encourage PO intake -continue to old home Lasix #GAL -Likely prerenal 2/2 volume depletion, BUN/creatinine 5.9 on admission -FeNa 2.7%, possibly some intrinsic nature to GAL; consider renal u/s -Creatinine today 0.98, down from 1.11 yesterday -Continue IVF as above -Continue to monitor -continue to hold home Metformin #Hypoglycemia -admission Glucose 54, improved to 66 after 1amp D50 -Will do accuchecks q2h to monitor closely, switched from D5LR to LR yesterday, has had BG 90s-100s overnight -will continue to monitor #Hypokalemia, Hypocalcemia, Hypophosphatemia -Calcium 7.1, Phosphate 1.0--both replaced x 1 dose each -Potassium initially 1.7> 3.0 after repleting (04/25)-> 1.8 on repeat 04/26AM BMP , given 40 meq KCL IV & 40 meq KCL PO at 0600 & 0730, repeat BMP at 1100 shows K + at 3.3; Potassium 2.8, given 80meq KCl PO; Phosphorus 2.1, given 15mmol sodium phosphate -Potassium 04/28 2.9, mag 1.4, phos 3.3. Ordered 80meq K-dur and 2mg mag sulfate -Monitor afternoon BMP, phos -replete with PO or IV KCl as needed -scheduled KCl 40meq BID -cortisol normal 8.60 -continue to monitor on tele #Diarrhea -patient reports that this is chronic, though has not had BM since being here per therapeutic case manager report -stool reportedly firm last night, will hold off on stool studies for now #Asymptomatic bacteruria -Patient without symptoms, s/p rocephin -Will monitor for symptoms #Prolonged QT -Was prolonged at [place] ED, but was 355 by the time she arrived in our ED -Will monitor on tele #Elevated CK -486->399>250 after fluids -Will monitor #COPD -continue home meds: Advair, uJanjoiva -Duonebs prn -O2 PRN to keep O2 sat >92% #HTN -continue home meds: Metoprolol succinate 25mg daily Diet: Regular VTE: SCDs Code status: FULL Dispo: Continued monitoring on telemetry. Continue to monitor Potassium, Calcium , Magnesium, and Phosphate levels today, encourage PO intake, monitor labs.
[2019-04-28 06:06] LABS: Anion Gap 12 mmol/L (10-20); BUN (Urea Nitrogen) 5 mg/dL (9.8-20.1); Calc. Creatinine Clearance 53 mL/min (70-130); Calcium 8.3 mg/dL (7.8-10.44); Carbon Dioxide 23 mmol/L (23-31); Chloride 106 mmol/L (98-107); Estimated GFR-MDRD 57; Glucose 88 mg/dL (80-115); Magnesium 1.4 mg/dL (1.6-2.6); Phosphorus 3.3 mg/dL (2.3-4.7); Potassium 2.9 mmol/L (3.5-5.1); Sodium 138 mmol/L (136-145)
[2019-04-28] MEDS ORDERED: Potassium Chloride 20 MEQ TAB PO SCH (06:15)
[2019-04-28] MEDS ORDERED: Magnesium 2 GM/50 ML 2 GM in Premix Bag 1 BAG IVPB SCH (06:30)
[2019-04-28] MEDS ORDERED: Magnesium Sulfate 2 GM in Sodium Chloride 0.9% 100 ML IVPB SCH (06:30)
[2019-04-28] MEDS: Ipratropium Bromide 2.5 ml Neb NEB SCH ×4 (06:53→23:53)
[2019-04-28] MEDS: Mometasone/Formoterol 120 PUFF INHALER INH SCH ×2 (07:04→18:25)
[2019-04-28] MEDS: Gabapentin 300 MG CAP PO SCH ×3 (09:00→20:33)
[2019-04-28] MEDS: DULoxetine 30 MG CAP PO SCH (09:00)
[2019-04-28] MEDS: Folic Acid 1 MG TAB PO SCH (09:00)
[2019-04-28] MEDS: Isosorbide Mononitrate (ER) 30 MG TAB PO SCH (09:01)
[2019-04-28] MEDS: Rosuvastatin 20 MG TAB PO SCH (09:01)
[2019-04-28] MEDS ORDERED: Iopamidol 370 76% 100 ML VIAL ONE (10:35)
[2019-04-28] MEDS: Lactated Ringer's 1,000 ML IV SCH (10:39)
--- NOTE | 2019-04-28 11:58 | PRG ---
DATE OF SERVICE: 04/28/2019 Ms. Zuñiga is feeling well except for the continual ongoing left lower quadrant abdominal pain. She does state that she has had a colonoscopy some time within the last 4 years, at which time she was told she had diverticulosis. On her exam this morning, she is tender in the left lower quadrant with no rebound, guarding, or rigidity. Her vital signs are stable and she is afebrile. Her white count on admission was 7300. However, given her ongoing discomfort, we will go ahead and proceed with a CT abdomen to determine that this is acute diverticulitis, at which time it may be advantageous to give her a round of antibiotics. Job ID: [id number]
--- NOTE | 2019-04-28 14:10 | CT ---
ABDOMEN AND PELVIC CT WITH CONTRAST: 04/28/19 INDICATION: Left sided abdominal pain. No prior comparison imaging available. FINDINGS: There is moderate to large right and moderate left pleural effusion with adjacent consolidation at th e imaged lung bases. Prior cholecystectomy with associated biliary ductal prominence that may relate to reservoir effect. The gastric lumen is moderately distended by ingested debris as well as enteric contrast. Contrast opacified small bowel is normal in caliber. The colon is diffusely unopacified whi ch limits evaluation. Contrast seen within the distal esophagus that may be on the basis of reflux or dysmotility. No focal hepatic or splenic lesion. No peripancreatic inflammation. No overt hydronephr osis. Adrenal glands are unremarkable. There is no free air or portal vein gas. There is air density dependently seen at the anterior aspect of the urinary bladder which is moderately distended. Scatter ed vascular disease is seen. The osseous structures reveal degenerative findings. Chronic appearing s uperior end plate irregularity is present at the low thoracic spine. Generalized body wall edema may relate to anasarca. Correlate clinically. IMPRESSION: 1. Prominent bilateral pleural fluid with adjacent consolidation. Correlate clinically. Imaging follow-up is also recommended with the utilizing of chest radiographs to confirm resolution. 2. No evidence of bowel obstruction. 3. Moderate distention of the bladder with intraluminal urinary bladder air. Correlate clinicall y. 4. No overt hydronephrosis of either kidney. There is mild diminished enhancement of each kidne y. This could be on the basis of diminished renal function. Recommend correlation with laboratory roxy ues to further assess. 5. Diffuse body wall edema. Correlate clinically. POS: [facility]
[2019-04-28 15:36] LABS: Anion Gap 13 mmol/L (10-20); BUN (Urea Nitrogen) 6 mg/dL (9.8-20.1); Calc. Creatinine Clearance 51 mL/min (70-130); Calcium 8.8 mg/dL (7.8-10.44); Carbon Dioxide 25 mmol/L (23-31); Chloride 102 mmol/L (98-107); Estimated GFR-MDRD 54; Glucose 86 mg/dL (80-115); Magnesium 2.2 mg/dL (1.6-2.6); Phosphorus 3.1 mg/dL (2.3-4.7); Potassium 3.8 mmol/L (3.5-5.1); Sodium 136 mmol/L (136-145)
[2019-04-28] MEDS: Potassium Chloride 10 MEQ TAB PO SCH (17:39)
[2019-04-28] MEDS: Loratadine 10 MG TAB PO SCH (20:34)
[2019-04-29] MEDS: Lactated Ringer's 1,000 ML IV SCH (01:18)
[2019-04-29] MEDS: Acetaminophen/Codeine 30-300mg Tablet PO SCH ×3 (05:10→20:29)
[2019-04-29 05:28] LABS: Anion Gap 10 mmol/L (10-20); BUN (Urea Nitrogen) 6 mg/dL (9.8-20.1); Calc. Creatinine Clearance 53 mL/min (70-130); Calcium 8.1 mg/dL (7.8-10.44); Carbon Dioxide 24 mmol/L (23-31); Chloride 106 mmol/L (98-107); Estimated GFR-MDRD 57; Glucose 83 mg/dL (80-115); Magnesium 1.8 mg/dL (1.6-2.6); Phosphorus 2.9 mg/dL (2.3-4.7); Potassium 3.3 mmol/L (3.5-5.1); Sodium 137 mmol/L (136-145)
--- NOTE | 2019-04-29 05:41 | PDOC.FM ---
- Subjective Subjective: Case management met with patient yesterday, rec patient d/c home when appropriate with HH to arrange for PT/OT services. PT met with patient and stated rehab potential is good, with PT rec 2-6x/wk at home with HH. OT rec 2-3x /wk. Patient doing well this morning. Reports that she has been coughing a little, no sputum production. Denies SOB. Denies past dx of HF. Reports that she spoke with her insurance company and they approved the a/c. She is waiting for her utility man to get word that the a/c unit is in so he can install it. - Objective Vital Signs & Weight: Vital Signs (12 hours) Temp Pulse Resp BP Pulse Ox 04/29/19 04:00 99.4 F 95 20 158/93 H 92 L 04/28/19 23:53 111 H 18 92 L 04/28/19 19:21 98.8 F 80 18 133/63 93 L 04/28/19 18:21 76 16 93 L Weight Admit Weight 54 kg Weight 60.464 kg I&O: 04/27/19 04/28/19 04/29/19 06:59 06:59 06:59 Intake Total 4526 4340 2400 Output Total 2325 2300 1800 Balance 2201 2040 600 Result Diagrams: 04/26/19 04:21 04/29/19 04:31 EKG Reviewed by me: Yes (sinus 80s-90s) Phys Exam - Physical Examination Constitutional: NAD HEENT: moist MMs, sclera anicteric Neck: supple, full ROM Respiratory: no wheezing decreased breath sounds in lower lobes Cardiovascular: RRR, no significant murmur Gastrointestinal: soft ttp left upper and lower quadrants Musculoskeletal: no edema, pulses present Neurological: normal sensation, moves all 4 limbs Lymphatic: no nodes Psychiatric: normal affect, A&O x 3 Skin: normal turgor, cap refill <2 seconds Dx/Plan (1) Hypoglycemia Code(s): E16.2 - HYPOGLYCEMIA, UNSPECIFIED Status: Acute (2) GAL (acute kidney injury) Code(s): N17.9 - ACUTE KIDNEY FAILURE, UNSPECIFIED Status: Acute (3) Hypokalemia Code(s): E87.6 - HYPOKALEMIA Status: Acute (4) HTN (hypertension) Code(s): I10 - ESSENTIAL (PRIMARY) HYPERTENSION Status: Acute (5) COPD (chronic obstructive pulmonary disease) Status: Chronic Qualifiers: COPD type: unspecified COPD Qualified Code(s): J44.9 - Chronic obstructive pulmonary disease, unspecified (6) Asymptomatic bacteriuria Code(s): R82.71 - BACTERIURIA Status: Acute (7) Fluid overload Code(s): E87.70 - FLUID OVERLOAD, UNSPECIFIED Status: Acute - Plan Plan: Pt is a 68 yo female with PMHx of HTN, COPD, and recent admission for heat stroke 2 weeks ago, who now presents with dehydration, GAL, and hypoglycemia: #Fluid Overload -BNP 445, up from 43 in 2017 -CT shows bilateral pleural effusion -patient on lasix at home, was d/c at admission 2/2 gal -patient has no known hx of HF -echo today, f/u results #Hypokalemia, Hypocalcemia, Hypophosphatemia -Calcium 7.1, Phosphate 1.0--both replaced x 1 dose each -Potassium initially 1.7> 3.0 after repleting (04/25)-> 1.8 on repeat 04/26AM BMP , given 40 meq KCL IV & 40 meq KCL PO at 0600 & 0730, repeat BMP at 1100 shows K + at 3.3; Potassium 2.8, given 80meq KCl PO; Phosphorus 2.1, given 15mmol sodium phosphate -Potassium 04/28 2.9, mag 1.4, phos 3.3. Ordered 80meq K-dur and 2mg mag sulfate -Potassium 04/29 3.3, mag 1.8, phos 2.9. Scheduled 40meq K-dur BID -Monitor afternoon BMP, phos -replete with PO or IV KCl as needed -scheduled KCl 40meq BID -cortisol normal 8.60 -CT: bilateral pleural fluid, no bowel obstruction, bladder distention with intraluminal bladder air, no hydronephrosis, diffuse body wall edema; patient has been off lasix likely resulting in some pleural fluid -continue to monitor on tele #Heat Exhaustion, Acute Dehydration-resolved -received 2L NS & 1L banana bag in ER -D/C LR@75/hr today -Encourage PO intake -continue to old home Lasix #GAL- resolved -Possibly prerenal 2/2 volume depletion, BUN/creatinine 5.9 on admission -FeNa 2.7%, possibly some intrinsic nature to GAL -Creatinine today 0.98 -Continue to monitor -continue to hold home Metformin #Hypoglycemia-resolved -admission Glucose 54, improved to 66 after 1amp D50 -Will do accuchecks q2h to monitor closely, has had BG 100s overnight -will continue to monitor #Diarrhea-resolved -patient reports that this is chronic, though has not had BM since being here per investment banking analyst report -stool reportedly firm last night, will hold off on stool studies for now #Asymptomatic bacteruria -Patient without symptoms, s/p rocephin -Will monitor for symptoms #Prolonged QT -Was prolonged at [place] [facility], but was 355 by the time she arrived in our ED -Will monitor on tele #Elevated CK -486->399>250 after fluids -Will monitor #COPD -continue home meds: Advair, Spiriva -Duonebs prn -O2 PRN to keep O2 sat >92% #HTN -continue home meds: Metoprolol succinate 25mg daily Diet: Regular VTE: SCDs Code status: FULL Dispo: Continued monitoring on telemetry. Continue to monitor Potassium, Calcium , Magnesium, and Phosphate levels today, encourage PO intake, monitor labs. Echo pending.
[2019-04-29] MEDS: Ipratropium Bromide 2.5 ml Neb NEB SCH ×4 (06:43→23:45)
[2019-04-29] MEDS: Mometasone/Formoterol 120 PUFF INHALER INH SCH ×2 (07:27→18:11)
[2019-04-29] MEDS ORDERED: Potassium Chloride 10 MEQ TAB PO SCH ×2 (08:00)
[2019-04-29] MEDS: DULoxetine 30 MG CAP PO SCH (08:36)
[2019-04-29] MEDS: Potassium Chloride 10 MEQ TAB PO SCH ×2 (08:37→16:19)
[2019-04-29] MEDS: Rosuvastatin 20 MG TAB PO SCH (08:37)
[2019-04-29] MEDS: Isosorbide Mononitrate (ER) 30 MG TAB PO SCH (08:37)
[2019-04-29] MEDS: Folic Acid 1 MG TAB PO SCH (08:38)
[2019-04-29] MEDS: Gabapentin 300 MG CAP PO SCH ×3 (08:40→20:28)
[2019-04-29] MEDS ORDERED: Ergocalciferol 1.25 MG(50,000 UNITS) CAP PO SCH (09:00)
--- NOTE | 2019-04-29 11:57 | PRG ---
DATE OF SERVICE: 04/29/[address] Ms. Zuñiga's CT of the abdomen was unremarkable, except for showing large bilateral pleural effusions. She received large amounts of fluids secondary to her dehydration and her Lasix was held, likely represent some mild degree of fluid overload. We will reinstitute her Lasix and reduce and stop her IV fluids. However, these effusion should be followed to complete resolution to ensure no other etiology or pathology. I would also suggest a chest x-ray. Otherwise, Ms. Zuñiga is in no respiratory distress and is awaiting placement. Job ID: [id number]
[2019-04-29 15:16] LABS: Chloride 105 mmol/L (98-107); Potassium 3.5 mmol/L (3.5-5.1); Sodium 134 mmol/L (136-145)
[2019-04-29 15:17] LABS: Calcium 7.8 mg/dL (7.8-10.44); Glucose 122 mg/dL (80-115)
[2019-04-29 15:19] LABS: Anion Gap 11 mmol/L (10-20); Carbon Dioxide 22 mmol/L (23-31)
[2019-04-29 15:21] LABS: BUN (Urea Nitrogen) 7 mg/dL (9.8-20.1); Calc. Creatinine Clearance 61 mL/min (70-130); Estimated GFR-MDRD 66; Phosphorus 2.6 mg/dL (2.3-4.7)
[2019-04-29 15:23] LABS: Magnesium 1.6 mg/dL (1.6-2.6)
[2019-04-29] MEDS: Loratadine 10 MG TAB PO SCH (20:29)
--- NOTE | 2019-04-30 05:24 | PDOC.FM ---
- Subjective Subjective: Patient doing well this morning. Reporting of occasional SOB. Reports that she has not heard any updates about her air conditioner, but she plans to call today. Agreeable to current plan of care. - Objective Vital Signs & Weight: Vital Signs (12 hours) Temp Pulse Resp BP Pulse Ox 04/30/19 04:00 98.0 F 80 18 123/60 92 L 04/30/19 00:00 74 111/57 L 93 L 04/29/19 23:45 73 18 94 L 04/29/19 20:00 98.5 F 84 18 109/57 L 91 L 04/29/19 18:13 79 18 90 L 04/29/19 18:11 79 18 90 L Weight Admit Weight 54 kg Weight 60.464 kg I&O: 04/28/19 04/29/19 04/30/19 06:59 06:59 06:59 Intake Total 4340 3600 1979 Output Total 2300 2500 Balance 2040 1100 1979 Result Diagrams: 04/26/19 04:21 04/30/19 04:38 EKG Reviewed by me: Yes (sinus 70s-80s, 12 beats of PAT (150s)) Phys Exam - Physical Examination Constitutional: NAD HEENT: moist MMs Neck: supple, full ROM Respiratory: no wheezing Decreased breath sounds in lower lung llamas Cardiovascular: RRR, no significant murmur Gastrointestinal: soft ttp left upper and lower quadrants Musculoskeletal: pulses present Neurological: normal sensation, moves all 4 limbs Lymphatic: no nodes Psychiatric: normal affect, A&O x 3 Skin: no rash, normal turgor Dx/Plan (1) Hypoglycemia Code(s): E16.2 - HYPOGLYCEMIA, UNSPECIFIED Status: Acute (2) GAL (acute kidney injury) Code(s): N17.9 - ACUTE KIDNEY FAILURE, UNSPECIFIED Status: Acute (3) Hypokalemia Code(s): E87.6 - HYPOKALEMIA Status: Acute (4) HTN (hypertension) Code(s): I10 - ESSENTIAL (PRIMARY) HYPERTENSION Status: Acute (5) COPD (chronic obstructive pulmonary disease) Status: Chronic Qualifiers: COPD type: unspecified COPD Qualified Code(s): J44.9 - Chronic obstructive pulmonary disease, unspecified (6) Asymptomatic bacteriuria Code(s): R82.71 - BACTERIURIA Status: Acute (7) Fluid overload Code(s): E87.70 - FLUID OVERLOAD, UNSPECIFIED Status: Acute - Plan Plan: Pt is a 68 yo female with PMHx of HTN, COPD, and recent admission for heat stroke 2 weeks ago, who now presents with dehydration, GAL, and hypoglycemia: #Fluid Overload -BNP 445, up from 43 in 2017 -CT shows bilateral pleural effusion -original CXR was negative on admission -patient on lasix at home, was d/c at admission 2/2 gal -patient has no known hx of HF -echo ordered, f/u results #Hypokalemia, Hypocalcemia, Hypophosphatemia -Calcium 7.1, Phosphate 1.0--both replaced x 1 dose each -Potassium initially 1.7> 3.0 after repleting (04/25)-> 1.8 on repeat 04/26AM BMP , given 40 meq KCL IV & 40 meq KCL PO at 0600 & 0730, repeat BMP at 1100 shows K + at 3.3; Potassium 2.8, given 80meq KCl PO; Phosphorus 2.1, given 15mmol sodium phosphate -Potassium 04/28 2.9, mag 1.4, phos 3.3. Ordered 80meq K-dur and 2mg mag sulfate -Potassium 04/29 3.3, mag 1.8, phos 2.9. Scheduled 40meq K-dur BID -Potassium 04/30 3.9, mag 1.6, phos 3.0. Scheduled 40meq K-dur BID -Monitor afternoon BMP, phos -replete with PO or IV KCl as needed -scheduled KCl 40meq BID -cortisol normal 8.60 -CT: bilateral pleural fluid, no bowel obstruction, bladder distention with intraluminal bladder air, no hydronephrosis, diffuse body wall edema; patient has been off lasix likely resulting in some pleural fluid -continue to monitor on tele #Heat Exhaustion, Acute Dehydration-resolved -received 2L NS & 1L banana bag in ER -Encourage PO intake -continue to old home Lasix #GAL- resolved -Possibly prerenal 2/2 volume depletion, BUN/creatinine 5.9 on admission -FeNa 2.7%, possibly some intrinsic nature to GAL -Creatinine today 0.89 -Continue to monitor -continue to hold home Metformin #Hypoglycemia-resolved -admission Glucose 54, improved to 66 after 1amp D50 -Will do accuchecks q2h to monitor closely, has had BG 80s-100s overnight -will continue to monitor #Diarrhea-resolved -patient reports that this is chronic, though has not had BM since being here per band nailer report -stool reportedly firm last night, will hold off on stool studies for now #Asymptomatic bacteruria -Patient without symptoms, s/p rocephin -Will monitor for symptoms #Prolonged QT -Was prolonged at [place] [facility], but was 355 by the time she arrived in our ED -Will monitor on tele #Elevated CK -486->399>250 after fluids -Will monitor #COPD -continue home meds: Advair, Spiriva -Duonebs prn -O2 PRN to keep O2 sat >92% #HTN -continue home meds: Metoprolol succinate 25mg daily Diet: Regular VTE: SCDs Code status: FULL Dispo: Continued monitoring on telemetry. Continue to monitor Potassium, Calcium , Magnesium, and Phosphate levels today, encourage PO intake, monitor labs. Echo pending.
[2019-04-30 05:37] LABS: Anion Gap 12 mmol/L (10-20); BUN (Urea Nitrogen) 7 mg/dL (9.8-20.1); Calc. Creatinine Clearance 59 mL/min (70-130); Calcium 8.1 mg/dL (7.8-10.44); Carbon Dioxide 22 mmol/L (23-31); Chloride 108 mmol/L (98-107); Estimated GFR-MDRD 63; Glucose 88 mg/dL (80-115); Magnesium 1.6 mg/dL (1.6-2.6); Potassium 3.9 mmol/L (3.5-5.1); Sodium 138 mmol/L (136-145)
[2019-04-30] MEDS ORDERED: Alendronate Sodium 70 mg Tablet PO SCH (06:00)
[2019-04-30] MEDS: Acetaminophen/Codeine 30-300mg Tablet PO SCH ×3 (06:05→20:06)
[2019-04-30] MEDS: Ipratropium Bromide 2.5 ml Neb NEB SCH ×4 (07:23→23:41)
[2019-04-30] MEDS: Mometasone/Formoterol 120 PUFF INHALER INH SCH ×2 (07:25→18:57)
[2019-04-30] MEDS: DULoxetine 30 MG CAP PO SCH (09:00)
[2019-04-30] MEDS: Isosorbide Mononitrate (ER) 30 MG TAB PO SCH (09:00)
[2019-04-30] MEDS: Rosuvastatin 20 MG TAB PO SCH (09:00)
[2019-04-30] MEDS: Folic Acid 1 MG TAB PO SCH (09:00)
[2019-04-30] MEDS: Gabapentin 300 MG CAP PO SCH ×3 (09:01→20:07)
[2019-04-30] MEDS: Potassium Chloride 10 MEQ TAB PO SCH ×2 (09:01→18:35)
--- NOTE | 2019-04-30 11:41 | PRG ---
DATE OF SERVICE: 04/30/2019 Ms. Zuñiga is sitting quietly in bed, in no distress. We are still awaiting placement and awaiting the arrival of her air conditioner. Clinically, there have been no significant changes. Job ID: [id number]
[2019-04-30 12:20] VITALS: BMI 21.4
[2019-04-30] MEDS: Loratadine 10 MG TAB PO SCH (20:07)
[2019-05-01 05:36] LABS: Anion Gap 13 mmol/L (10-20); BUN (Urea Nitrogen) 8 mg/dL (9.8-20.1); Calc. Creatinine Clearance 56 mL/min (70-130); Carbon Dioxide 25 mmol/L (23-31); Chloride 105 mmol/L (98-107); Estimated GFR-MDRD 61; Glucose 90 mg/dL (80-115); Phosphorus 2.9 mg/dL (2.3-4.7); Potassium 4.4 mmol/L (3.5-5.1); Sodium 139 mmol/L (136-145)
--- NOTE | 2019-05-01 05:48 | PDOC.FM ---
- Subjective Subjective: Patient doing well this morning. Only occasionally sob. Reports that she has not heard any updates on her air conditioner. She states she is agreeable to going to [facility] if [facility] accept here in the meantime. Denies other complaints at this time. - Objective Vital Signs & Weight: Vital Signs (12 hours) Temp Pulse Resp BP Pulse Ox 05/01/19 04:00 84 18 130/59 L 94 L 05/01/19 00:00 82 16 04/30/19 23:41 80 16 04/30/19 20:00 98.7 F 94 20 141/69 H 92 L 04/30/19 18:57 84 20 Weight Admit Weight 54 kg Weight 59.421 kg I&O: 04/29/19 04/30/19 05/01/19 06:59 06:59 06:59 Intake Total 3600 2730 2390 Output Total 2500 500 650 Balance 1100 2230 1740 Result Diagrams: 04/26/19 04:21 05/01/19 04:52 EKG Reviewed by me: Yes (sinus 70s-80s, 11 beats PAT) Phys Exam - Physical Examination Constitutional: NAD HEENT: moist MMs, sclera anicteric Neck: supple, full ROM Respiratory: no wheezing decreased breath sounds lower lobes Cardiovascular: RRR, no significant murmur Gastrointestinal: soft mildly ttp left upper and lower quadrants Musculoskeletal: no edema, pulses present Neurological: normal sensation, moves all 4 limbs Lymphatic: no nodes Psychiatric: normal affect, A&O x 3 Skin: normal turgor, cap refill <2 seconds Dx/Plan (1) Hypoglycemia Code(s): E16.2 - HYPOGLYCEMIA, UNSPECIFIED Status: Acute (2) GAL (acute kidney injury) Code(s): N17.9 - ACUTE KIDNEY FAILURE, UNSPECIFIED Status: Acute (3) Hypokalemia Code(s): E87.6 - HYPOKALEMIA Status: Acute (4) HTN (hypertension) Code(s): I10 - ESSENTIAL (PRIMARY) HYPERTENSION Status: Acute (5) COPD (chronic obstructive pulmonary disease) Status: Chronic Qualifiers: COPD type: unspecified COPD Qualified Code(s): J44.9 - Chronic obstructive pulmonary disease, unspecified (6) Asymptomatic bacteriuria Code(s): R82.71 - BACTERIURIA Status: Acute (7) Fluid overload Code(s): E87.70 - FLUID OVERLOAD, UNSPECIFIED Status: Acute - Plan Plan: Pt is a 68 yo female with PMHx of HTN, COPD, and recent admission for heat stroke 2 weeks ago, who now presents with dehydration, GAL, and hypoglycemia: #Fluid Overload -BNP 445, up from 43 in 2017 -CT shows bilateral pleural effusion -original CXR was negative on admission -patient on lasix at home, was d/c at admission 2/2 gal -patient has no known hx of HF -echo: EF 60-65%, trace mitral regurgitation, mild-moderate tricuspid regurgitation -restart home lasix today #Hypokalemia, Hypocalcemia, Hypophosphatemia -Calcium 7.1, Phosphate 1.0--both replaced x 1 dose each -Potassium initially 1.7> 3.0 after repleting (04/25)-> 1.8 on repeat 04/26AM BMP , given 40 meq KCL IV & 40 meq KCL PO at 0600 & 0730, repeat BMP at 1100 shows K + at 3.3; Potassium 2.8, given 80meq KCl PO; Phosphorus 2.1, given 15mmol sodium phosphate -Potassium 04/28 2.9, mag 1.4, phos 3.3. Ordered 80meq K-dur and 2mg mag sulfate -Potassium 04/29 3.3, mag 1.8, phos 2.9. Scheduled 40meq K-dur BID -Potassium 04/30 3.9, mag 1.6, phos 3.0. Scheduled 40meq K-dur BID -potassium 05/01 4.4, phos 2.9, scheduled 40meq K-dur BID -scheduled KCl 40meq BID -cortisol normal 8.60 -CT: bilateral pleural fluid, no bowel obstruction, bladder distention with intraluminal bladder air, no hydronephrosis, diffuse body wall edema; patient has been off lasix likely resulting in some pleural fluid -continue to monitor on tele -add home lasix today and monitor electrolytes -Monitor afternoon BMP, phos -replete with PO or IV KCl as needed -CM put in referral to [facility] yesterday, awaiting possible placement #Heat Exhaustion, Acute Dehydration-resolved -received 2L NS & 1L banana bag in ER -Encourage PO intake #GAL- resolved -Possibly prerenal 2/2 volume depletion, BUN/creatinine 5.9 on admission -FeNa 2.7%, possibly some intrinsic nature to GAL -Creatinine today 0.92 -Continue to monitor -continue to hold home Metformin #Hypoglycemia-resolved -admission Glucose 54, improved to 66 after 1amp D50 -Will do accuchecks q2h to monitor closely, has had BG 60s-100s overnight -will continue to monitor #Diarrhea-resolved -patient reports that this is chronic, though has not had BM since being here per flooring machine feeder report -stool reportedly firm last night, will hold off on stool studies for now #Asymptomatic bacteruria -Patient without symptoms, s/p rocephin -Will monitor for symptoms #Prolonged QT -Was prolonged at [place] [facility], but was 355 by the time she arrived in our ED -Will monitor on tele #Elevated CK -486->399>250 after fluids -Will monitor #COPD -continue home meds: Advair, Spiriva -Duonebs prn -O2 PRN to keep O2 sat >92% #HTN -continue home meds: Metoprolol succinate 25mg daily Diet: Regular VTE: SCDs Code status: FULL Dispo: Continued monitoring on telemetry. Continue to monitor Potassium, Calcium , Magnesium, and Phosphate levels today, encourage PO intake, monitor labs. Trial adding home lasix today
[2019-05-01] MEDS: Acetaminophen/Codeine 30-300mg Tablet PO SCH ×3 (05:58→21:15)
[2019-05-01] MEDS: Mometasone/Formoterol 120 PUFF INHALER INH SCH ×2 (06:59→20:31)
[2019-05-01] MEDS: Ipratropium Bromide 2.5 ml Neb NEB SCH ×4 (07:00→23:21)
[2019-05-01] MEDS: DULoxetine 30 MG CAP PO SCH (10:01)
[2019-05-01] MEDS: Potassium Chloride 10 MEQ TAB PO SCH ×2 (10:02→16:43)
[2019-05-01] MEDS: Gabapentin 300 MG CAP PO SCH ×3 (10:02→20:14)
[2019-05-01] MEDS: Furosemide 40 MG TAB PO SCH (10:02)
[2019-05-01] MEDS: Isosorbide Mononitrate (ER) 30 MG TAB PO SCH (10:02)
[2019-05-01] MEDS: Rosuvastatin 20 MG TAB PO SCH (10:02)
[2019-05-01] MEDS: Folic Acid 1 MG TAB PO SCH (10:03)
--- NOTE | 2019-05-01 10:14 | PRG ---
DATE OF SERVICE: 05/01/2019 Ms. Zuñiga is resting quietly in bed, in no distress. We are still awaiting placement. She is agreeable to go into the [facility] temporarily until air conditioning problem can be resolved. Job ID: [id number]
[2019-05-01] MEDS ORDERED: Docusate 100 MG CAP PO SCH ×2 (11:15→14:00)
[2019-05-01 16:30] LABS: Anion Gap 11 mmol/L (10-20); BUN (Urea Nitrogen) 9 mg/dL (9.8-20.1); Calc. Creatinine Clearance 56 mL/min (70-130); Calcium 8.7 mg/dL (7.8-10.44); Carbon Dioxide 25 mmol/L (23-31); Chloride 104 mmol/L (98-107); Estimated GFR-MDRD 61; Glucose 108 mg/dL (80-115); Magnesium 1.6 mg/dL (1.6-2.6); Phosphorus 3.4 mg/dL (2.3-4.7); Potassium 5.3 mmol/L (3.5-5.1); Sodium 135 mmol/L (136-145)
[2019-05-01] MEDS: Loratadine 10 MG TAB PO SCH (20:14)
[2019-05-01 21:28] LABS: Anion Gap 12 mmol/L (10-20); BUN (Urea Nitrogen) 10 mg/dL (9.8-20.1); Calc. Creatinine Clearance 56 mL/min (70-130); Calcium 8.4 mg/dL (7.8-10.44); Carbon Dioxide 23 mmol/L (23-31); Chloride 105 mmol/L (98-107); Estimated GFR-MDRD 61; Glucose 98 mg/dL (80-115); Potassium 5.1 mmol/L (3.5-5.1); Sodium 135 mmol/L (136-145)
[2019-05-02] MEDS: Acetaminophen/Codeine 30-300mg Tablet PO SCH ×3 (05:19→21:11)
[2019-05-02 05:45] LABS: Anion Gap 12 mmol/L (10-20); BUN (Urea Nitrogen) 14 mg/dL (9.8-20.1); Calc. Creatinine Clearance 55 mL/min (70-130); Calcium 9.1 mg/dL (7.8-10.44); Carbon Dioxide 25 mmol/L (23-31); Chloride 106 mmol/L (98-107); Estimated GFR-MDRD 60; Glucose 118 mg/dL (80-115); Potassium 4.4 mmol/L (3.5-5.1); Sodium 139 mmol/L (136-145)
--- NOTE | 2019-05-02 05:46 | PDOC.FM ---
- Subjective Subjective: She is doing well. She is eating and walking around. Ready to go to SNF. She has difficult with Normal BM. - Objective MAR Reviewed: Yes Vital Signs & Weight: Vital Signs (12 hours) Temp Pulse Resp BP Pulse Ox 05/02/19 04:00 97.5 F L 75 16 119/57 L 92 L 05/01/19 23:21 92 L 05/01/19 20:32 93 L 05/01/19 20:31 91 L 05/01/19 20:00 96 05/01/19 19:53 97.6 F 77 16 123/63 96 Weight Admit Weight 54 kg Weight 59.421 kg I&O: 04/30/19 05/01/19 05/02/19 06:59 06:59 06:59 Intake Total 2730 2440 3460 Output Total 500 1050 Balance 2230 1390 3460 Result Diagrams: 04/26/19 04:21 05/02/19 04:47 Phys Exam - Physical Examination Constitutional: NAD HEENT: PERRLA, moist MMs, oral pharynx no lesions Neck: full ROM Respiratory: clear to auscultation bilateral Cardiovascular: RRR, no significant murmur Gastrointestinal: soft, non-tender, positive bowel sounds Musculoskeletal: no edema Neurological: moves all 4 limbs Psychiatric: normal affect, A&O x 3 Skin: no rash Dx/Plan (1) Fluid overload Code(s): E87.70 - FLUID OVERLOAD, UNSPECIFIED Status: Acute (2) Hypocalcemia Code(s): E83.51 - HYPOCALCEMIA Status: Acute (3) Hypokalemia Code(s): E87.6 - HYPOKALEMIA Status: Acute (4) GAL (acute kidney injury) Code(s): N17.9 - ACUTE KIDNEY FAILURE, UNSPECIFIED Status: Acute (5) Asymptomatic bacteriuria Code(s): R82.71 - BACTERIURIA Status: Acute (6) HTN (hypertension) Code(s): I10 - ESSENTIAL (PRIMARY) HYPERTENSION Status: Chronic Qualifiers: Hypertension type: unspecified Qualified Code(s): I10 - Essential (primary ) hypertension - Plan Plan: Pt is a 68 yo female with PMHx of HTN, COPD, and recent admission for heat stroke 2 weeks ago, who now presents with dehydration, GAL, and hypoglycemia: 1. Fluid Overload- resolved -BNP 445, up from 43 in 2017 -CT shows bilateral pleural effusion -original CXR was negative on admission -patient on lasix at home, was d/c at admission 2/2 gal -patient has no known hx of HF -echo: EF 60-65%, trace mitral regurgitation, mild-moderate tricuspid regurgitation -restarted home lasix yesterday -No edema today 2. Hypokalemia, Hypocalcemia, Hypophosphatemia -Calcium 7.1, Phosphate 1.0--both replaced x 1 dose each -Potassium initially 1.7> 3.0 after repleting (04/25)-> 1.8 on repeat 04/26AM BMP , given 40 meq KCL IV & 40 meq KCL PO at 0600 & 0730, repeat BMP at 1100 shows K + at 3.3; Potassium 2.8, given 80meq KCl PO; Phosphorus 2.1, given 15mmol sodium phosphate -potassium 05/02 4.4, phos 4.0 -scheduled KCl 20 meq BID -cortisol normal 8.60 -CT: bilateral pleural fluid, no bowel obstruction, bladder distention with intraluminal bladder air, no hydronephrosis, diffuse body wall edema; patient has been off lasix likely resulting in some pleural fluid -continue to monitor on tele -added home lasix yesterday and monitor electrolytes -CM put in referral to [facility] yesterday, awaiting possible placement 3. Heat Exhaustion, Acute Dehydration-resolved -received 2L NS & 1L banana bag in ER -Encourage PO intake 4. GAL- resolved -Possibly prerenal 2/2 volume depletion, BUN/creatinine 5.9 on admission -FeNa 2.7%, possibly some intrinsic nature to GAL -Creatinine today 0.93 -Continue to monitor -continue to hold home Metformin 5. Hypoglycemia-resolved -BG 80s-100s overnight -will continue to monitor 6. Diarrhea-resolved -patient reports that this is chronic, though has not had BM since being here per net software engineer report -stool reportedly firm last night, will hold off on stool studies for now 7. Asymptomatic bacteruria -Patient without symptoms, s/p rocephin -Will monitor for symptoms 8. Prolonged QT -Was prolonged at [place] [facility], but was 355 by the time she arrived in our ED -Will monitor on tele 9. Elevated CK -Received fluids and creatinine has trended down -Will monitor 10. COPD -continue home meds: Advair, Spiriva -Duonebs prn -O2 PRN to keep O2 sat >92% 11. HTN -continue home meds: Metoprolol succinate 25mg daily -Will monitor Diet: Regular VTE: SCDs Code status: FULL Dispo: Continued monitoring on telemetry. Continue to monitor Potassium, Calcium , Magnesium, and Phosphate levels today, encourage PO intake, monitor labs. Trial adding home lasix today
[2019-05-02] MEDS: Ipratropium Bromide 2.5 ml Neb NEB SCH ×3 (06:38→19:36)
[2019-05-02] MEDS: Mometasone/Formoterol 120 PUFF INHALER INH SCH ×2 (07:04→19:36)
[2019-05-02] MEDS: Furosemide 40 MG TAB PO SCH (09:24)
[2019-05-02] MEDS: Isosorbide Mononitrate (ER) 30 MG TAB PO SCH (09:24)
[2019-05-02] MEDS: Rosuvastatin 20 MG TAB PO SCH (09:24)
[2019-05-02] MEDS: DULoxetine 30 MG CAP PO SCH (09:25)
[2019-05-02] MEDS: Gabapentin 300 MG CAP PO SCH ×3 (09:25→21:10)
[2019-05-02] MEDS: Docusate 100 MG CAP PO SCH (09:25)
[2019-05-02] MEDS: Folic Acid 1 MG TAB PO SCH (09:25)
--- NOTE | 2019-05-02 12:13 | PRG ---
DATE OF SERVICE: 05/02/2019 Ms. Zuñiga is alert and cheerful this morning. We are still awaiting placement. Job ID: [id number]
[2019-05-02] MEDS: Potassium Chloride 20 MEQ TAB PO SCH (16:02)
[2019-05-02] MEDS: Loratadine 10 MG TAB PO SCH (21:11)
[2019-05-03] MEDS: Ipratropium Bromide 2.5 ml Neb NEB SCH ×4 (00:30→20:04)
[2019-05-03] MEDS: Acetaminophen/Codeine 30-300mg Tablet PO SCH ×3 (05:31→23:17)
--- NOTE | 2019-05-03 05:44 | PDOC.FM ---
- Subjective Subjective: Doing well today. No complaints. Eating well. BM yesterday. - Objective MAR Reviewed: Yes Vital Signs & Weight: Vital Signs (12 hours) Temp Pulse Resp BP Pulse Ox 05/03/19 05:39 96 05/03/19 00:30 94 L 05/03/19 00:13 97.9 F 74 16 105/69 98 05/02/19 20:30 99.4 F 84 18 124/59 L 96 05/02/19 19:37 92 L 05/02/19 19:36 95 Weight Admit Weight 54 kg Weight 59.421 kg I&O: 05/01/19 05/02/19 05/03/19 06:59 06:59 06:59 Intake Total 2440 3460 1320 Output Total 1050 1070 Balance 1390 3460 250 Result Diagrams: 04/26/19 04:21 05/03/19 05:57 Phys Exam - Physical Examination Constitutional: NAD HEENT: PERRLA, moist MMs Neck: no nodes Wheezing present bilaterally Cardiovascular: RRR, no significant murmur Dx/Plan (1) Fluid overload Code(s): E87.70 - FLUID OVERLOAD, UNSPECIFIED Status: Acute (2) Hypocalcemia Code(s): E83.51 - HYPOCALCEMIA Status: Acute (3) Hypokalemia Code(s): E87.6 - HYPOKALEMIA Status: Acute (4) GAL (acute kidney injury) Code(s): N17.9 - ACUTE KIDNEY FAILURE, UNSPECIFIED Status: Acute (5) Asymptomatic bacteriuria Code(s): R82.71 - BACTERIURIA Status: Acute (6) HTN (hypertension) Code(s): I10 - ESSENTIAL (PRIMARY) HYPERTENSION Status: Chronic Qualifiers: Hypertension type: unspecified Qualified Code(s): I10 - Essential (primary ) hypertension - Plan Plan: Pt is a 68 yo female with PMHx of HTN, COPD, and recent admission for heat stroke 2 weeks ago, who now presents with dehydration, GAL, and hypoglycemia: 1. Fluid Overload- Resolved -BNP 445, up from 43 in 2017 -CT shows bilateral pleural effusion -original CXR was negative on admission -patient on lasix at home, was d/c at admission 2/2 gal -patient has no known hx of HF -echo: EF 60-65%, trace mitral regurgitation, mild-moderate tricuspid regurgitation -restarted home lasix and KCl 20 mEq BID. Will recheck lab values this morning. 2. Hypokalemia, Hypocalcemia, Hypophosphatemia -Calcium 7.1, Phosphate 1.0--both replaced x 1 dose each -Potassium initially 1.7> 3.0 after repleting (04/25)-> 1.8 on repeat 04/26AM BMP , given 40 meq KCL IV & 40 meq KCL PO at 0600 & 0730, repeat BMP at 1100 shows K + at 3.3; Potassium 2.8, given 80meq KCl PO; Phosphorus 2.1, given 15mmol sodium phosphate -potassium 05/02 4.4, phos 4.0 -potassium 05/03 4.9 -scheduled KCl 20 meq BID -cortisol normal 8.60 -CT: bilateral pleural fluid, no bowel obstruction, bladder distention with intraluminal bladder air, no hydronephrosis, diffuse body wall edema; patient has been off lasix likely resulting in some pleural fluid -continue to monitor on tele -added home lasix and monitor electrolytes -CM put in referral to [facility], awaiting possible placement 3. Heat Exhaustion, Acute Dehydration-Resolved -received 2L NS & 1L banana bag in ER -Encourage PO intake 4. GAL- Resolved -Possibly prerenal 2/2 volume depletion, BUN/creatinine 5.9 on admission -FeNa 2.7%, possibly some intrinsic nature to GAL -Creatinine today 0.93 -Continue to monitor -continue to hold home Metformin 5. Hypoglycemia-Resolved -BG 99-125 overnight -will continue to monitor 6. Diarrhea-Resolved -patient reports that this is chronic, though has not had BM since being here per synthetic soil blocks pulper report -stool reportedly firm last night, will hold off on stool studies for now 7. Asymptomatic bacteruria -Patient without symptoms, s/p rocephin -Will monitor for symptoms 8. Prolonged QT -Was prolonged at [place] ED, but was 355 by the time she arrived in our ED -Will monitor on tele 9. Elevated CK-Resolved -Received fluids and creatinine has trended down -Will monitor 10. COPD -continue home meds: Advair, Spiriva -Duonebs prn -O2 PRN to keep O2 sat >92% -Slight wheezing today. 11. HTN- Controlled -continue home meds: Metoprolol succinate 25mg daily -Will monitor Diet: Regular VTE: SCDs Code status: FULL Dispo: Continued monitoring on telemetry. Continue to monitor Potassium, Calcium , Magnesium, and Phosphate levels today, encourage PO intake, monitor labs. Started incentive spirometry and will increase nebs. Awaiting rehab placement.
[2019-05-03 06:32] LABS: Phosphorus 3.9 mg/dL (2.3-4.7)
[2019-05-03 07:20] LABS: Anion Gap 14 mmol/L (10-20); BUN (Urea Nitrogen) 15 mg/dL (9.8-20.1); Calc. Creatinine Clearance 51 mL/min (70-130); Calcium 9.1 mg/dL (7.8-10.44); Carbon Dioxide 29 mmol/L (23-31); Chloride 103 mmol/L (98-107); Estimated GFR-MDRD 55; Glucose 91 mg/dL (80-115); Potassium 4.9 mmol/L (3.5-5.1); Sodium 141 mmol/L (136-145)
[2019-05-03] MEDS: Mometasone/Formoterol 120 PUFF INHALER INH SCH ×2 (07:28→20:02)
[2019-05-03] MEDS ORDERED: Potassium Chloride 20 MEQ TAB PO SCH (08:00)
[2019-05-03] MEDS: Potassium Chloride 20 MEQ TAB PO SCH ×2 (09:32→16:22)
[2019-05-03] MEDS: Docusate 100 MG CAP PO SCH (09:32)
[2019-05-03] MEDS: DULoxetine 30 MG CAP PO SCH (09:32)
[2019-05-03] MEDS: Furosemide 40 MG TAB PO SCH (09:33)
[2019-05-03] MEDS: Rosuvastatin 20 MG TAB PO SCH (09:33)
[2019-05-03] MEDS: Folic Acid 1 MG TAB PO SCH (09:33)
[2019-05-03] MEDS: Isosorbide Mononitrate (ER) 30 MG TAB PO SCH (09:33)
[2019-05-03] MEDS: Gabapentin 300 MG CAP PO SCH ×3 (09:33→20:31)
--- NOTE | 2019-05-03 10:42 | PRG ---
DATE OF SERVICE: 05/03/2019 Ms. Zuñiga is doing fine this morning. She is even cheerful. We are still awaiting placement. No new clinical issues. Job ID: [id number]
[2019-05-03] MEDS ORDERED: Albuterol Sulfate 1.25 MG/3 ML NEB NEB SCH (12:15)
[2019-05-03] MEDS: Loratadine 10 MG TAB PO SCH (20:32)
[2019-05-04] MEDS: Ipratropium Bromide 2.5 ml Neb NEB SCH ×5 (01:47→23:25)
--- NOTE | 2019-05-04 05:06 | PDOC.FM ---
- Subjective Subjective: Patient doing well this morning. Denies SOB, cp, abdominal pain. Reports that she has someone that is supposed to put in her air conditioner on Saturday. Currently waiting for swingbed placement. - Objective Vital Signs & Weight: Vital Signs (12 hours) Temp Pulse Resp BP Pulse Ox 05/04/19 04:15 97.3 F L 75 20 119/69 92 L 05/04/19 01:47 94 L 05/03/19 20:05 94 L 05/03/19 20:04 94 L 05/03/19 20:02 16 93 L 05/03/19 20:00 96 Weight Admit Weight 54 kg Weight 59.421 kg I&O: 05/02/19 05/03/19 05/04/19 06:59 06:59 06:59 Intake Total 3460 1560 1200 Output Total 1070 Balance 3460 490 1200 Result Diagrams: 04/26/19 04:21 05/04/19 05:51 EKG Reviewed by me: Yes (sinus 70s-80s, occasional PVC) Phys Exam - Physical Examination Constitutional: NAD HEENT: moist MMs, sclera anicteric Neck: supple, full ROM Respiratory: no wheezing, no rhonchi improved breath sounds throughout Cardiovascular: RRR, no significant murmur Gastrointestinal: soft, non-tender Musculoskeletal: no edema, pulses present Neurological: normal sensation, moves all 4 limbs Lymphatic: no nodes Psychiatric: normal affect, A&O x 3 Skin: normal turgor, cap refill <2 seconds Dx/Plan (1) Hypoglycemia Code(s): E16.2 - HYPOGLYCEMIA, UNSPECIFIED Status: Acute (2) GAL (acute kidney injury) Code(s): N17.9 - ACUTE KIDNEY FAILURE, UNSPECIFIED Status: Acute (3) Hypokalemia Code(s): E87.6 - HYPOKALEMIA Status: Acute (4) HTN (hypertension) Code(s): I10 - ESSENTIAL (PRIMARY) HYPERTENSION Status: Acute (5) COPD (chronic obstructive pulmonary disease) Status: Chronic Qualifiers: COPD type: unspecified COPD Qualified Code(s): J44.9 - Chronic obstructive pulmonary disease, unspecified (6) Asymptomatic bacteriuria Code(s): R82.71 - BACTERIURIA Status: Acute (7) Fluid overload Code(s): E87.70 - FLUID OVERLOAD, UNSPECIFIED Status: Acute - Plan Plan: Pt is a 68 yo female with PMHx of HTN, COPD, and recent admission for heat stroke 2 weeks ago, who now presents with dehydration, GAL, and hypoglycemia: #Fluid Overload- Resolved -BNP 445, up from 43 in 2017 -CT shows bilateral pleural effusion -original CXR was negative on admission -patient on lasix at home, was d/c at admission 2/2 gal -patient has no known hx of HF -echo: EF 60-65%, trace mitral regurgitation, mild-moderate tricuspid regurgitation -restarted home lasix and KCl 20 mEq BID. #Hypokalemia, Hypocalcemia, Hypophosphatemia -Calcium 7.1, Phosphate 1.0--both replaced x 1 dose each -Potassium initially 1.7> 3.0 after repleting (04/25)-> 1.8 on repeat 04/26AM BMP , given 40 meq KCL IV & 40 meq KCL PO at 0600 & 0730, repeat BMP at 1100 shows K + at 3.3; Potassium 2.8, given 80meq KCl PO; Phosphorus 2.1, given 15mmol sodium phosphate -potassium 05/02 4.4, phos 4.0 -potassium 9/ 4.9 -potassium 9/2 4.7 -scheduled KCl 20 meq BID -cortisol normal 8.60 -CT: bilateral pleural fluid, no bowel obstruction, bladder distention with intraluminal bladder air, no hydronephrosis, diffuse body wall edema; patient has been off lasix likely resulting in some pleural fluid -continue to monitor on tele -added home lasix and monitor electrolytes -CM put in referral to [facility], awaiting possible placement #Heat Exhaustion, Acute Dehydration-Resolved -received 2L NS & 1L banana bag in ER -Encourage PO intake #GAL- Resolved -Possibly prerenal 2/2 volume depletion, BUN/creatinine 5.9 on admission -FeNa 2.7%, possibly some intrinsic nature to GAL -Creatinine today 0.86 -Continue to monitor #Hypoglycemia-Resolved -BG 99-125 overnight -will continue to monitor #Diarrhea-Resolved -patient reports that this is chronic, though has not had BM since being here per front desk clerk report -stool reportedly firm last night, will hold off on stool studies for now #Asymptomatic bacteruria -Patient without symptoms, s/p rocephin -Will monitor for symptoms #Prolonged QT -Was prolonged at [facility], but was 355 by the time she arrived in our ED -Will monitor on tele #Elevated CK-Resolved -Received fluids and creatinine has trended down -Will monitor #COPD -continue home meds: Advair, Spiriva -Duonebs prn -O2 PRN to keep O2 sat >92% -Slight wheezing today. #HTN- Controlled -continue home meds: Metoprolol succinate 25mg daily -Will monitor Diet: Regular VTE: SCDs Code status: FULL Dispo: Continued monitoring on telemetry. Continue to monitor Potassium, Calcium , Magnesium, and Phosphate levels today, encourage PO intake, monitor labs. Started incentive spirometry and will increase nebs. Awaiting swingbed placement. Addendum - Attending - Attending Attestation Date/Time: 05/04/19 1212 I personally evaluated the patient and discussed the management with Dr. Hargrove. I agree with the History, Examination, Assessment and Plan documented above with any addition or exceptions noted below. The patient is doing well. Electrolytes stable. Waiting on placement in swingbed.
[2019-05-04] MEDS: Acetaminophen/Codeine 30-300mg Tablet PO SCH ×3 (05:22→20:33)
[2019-05-04 06:43] LABS: Anion Gap 13 mmol/L (10-20); BUN (Urea Nitrogen) 18 mg/dL (9.8-20.1); Calc. Creatinine Clearance 60 mL/min (70-130); Carbon Dioxide 28 mmol/L (23-31); Chloride 102 mmol/L (98-107); Estimated GFR-MDRD 66; Glucose 88 mg/dL (80-115); Phosphorus 3.8 mg/dL (2.3-4.7); Potassium 4.7 mmol/L (3.5-5.1); Sodium 138 mmol/L (136-145)
[2019-05-04] MEDS: Mometasone/Formoterol 120 PUFF INHALER INH SCH ×2 (07:48→19:56)
[2019-05-04] MEDS: DULoxetine 30 MG CAP PO SCH (08:17)
[2019-05-04] MEDS: Docusate 100 MG CAP PO SCH (08:17)
[2019-05-04] MEDS: Isosorbide Mononitrate (ER) 30 MG TAB PO SCH (08:18)
[2019-05-04] MEDS: Folic Acid 1 MG TAB PO SCH (08:18)
[2019-05-04] MEDS: Rosuvastatin 20 MG TAB PO SCH (08:18)
[2019-05-04] MEDS: Gabapentin 300 MG CAP PO SCH ×3 (08:18→20:33)
[2019-05-04] MEDS: Furosemide 40 MG TAB PO SCH (08:18)
[2019-05-04] MEDS: Potassium Chloride 20 MEQ TAB PO SCH ×2 (08:19→17:35)
[2019-05-04] MEDS: metFORMIN 500 MG TAB PO SCH (09:16)
[2019-05-04] MEDS: Loratadine 10 MG TAB PO SCH (20:33)
[2019-05-05 05:32] LABS: Anion Gap 12 mmol/L (10-20); BUN (Urea Nitrogen) 21 mg/dL (9.8-20.1); Calc. Creatinine Clearance 61 mL/min (70-130); Calcium 9.3 mg/dL (7.8-10.44); Carbon Dioxide 28 mmol/L (23-31); Chloride 103 mmol/L (98-107); Estimated GFR-MDRD 68; Glucose 90 mg/dL (80-115); Phosphorus 3.8 mg/dL (2.3-4.7); Sodium 139 mmol/L (136-145)
[2019-05-05] MEDS: Acetaminophen/Codeine 30-300mg Tablet PO SCH (05:52)
[2019-05-05 07:47] VITALS: BP 133/64; TEMP 97.8
[2019-05-05] MEDS: Potassium Chloride 20 MEQ TAB PO SCH (08:31)
[2019-05-05] MEDS: DULoxetine 30 MG CAP PO SCH (08:32)
[2019-05-05] MEDS: Isosorbide Mononitrate (ER) 30 MG TAB PO SCH (08:32)
[2019-05-05] MEDS: Furosemide 40 MG TAB PO SCH (08:32)
[2019-05-05] MEDS: Docusate 100 MG CAP PO SCH (08:32)
[2019-05-05] MEDS: metFORMIN 500 MG TAB PO SCH (08:32)
[2019-05-05] MEDS: Folic Acid 1 MG TAB PO SCH (08:32)
[2019-05-05] MEDS: Rosuvastatin 20 MG TAB PO SCH (08:32)
[2019-05-05] MEDS: Gabapentin 300 MG CAP PO SCH (08:32)
[2019-05-05] MEDS: Ipratropium Bromide 2.5 ml Neb NEB SCH (10:13)
[2019-05-05] MEDS: Mometasone/Formoterol 120 PUFF INHALER INH SCH (10:14)
--- NOTE | 2019-05-05 14:05 | DIS ---
DATE OF ADMISSION: 04/26/2019 DATE OF DISCHARGE: 05/04/2019 ADMITTING RESIDENT: Houston Gracia DO ADMITTING ATTENDING: Sourav Sutton MD DISCHARGE RESIDENT: Juliette Hargrove MD. DISCHARGE ATTENDING: Kiara Redd MD. CONSULTS: OT/PT, Case Management, dietitian. PROCEDURES: None. IMAGING: CT abdomen/pelvis: Prominent bilateral pleural fluid with adjacent consolidation. No evidence of bowel obstruction. Moderate distention of the bladder with intraluminal urinary bladder. No hydronephrosis of either kidney. Diffuse body wall edema. Echo: EF 60-65 percent. Normal right-sided ventricle. Normal left atrium and right atrium. Trace mitral regurgitation. Structurally normal aortic valve. Mild to moderate tricuspid regurgitation. PRIMARY DIAGNOSES: Acute kidney injury due to dehydration, hypophosphatemia, hypocalcemia, hypoglycemia, prolonged QT, diarrhea, all resolved. Hypokalemia, fluid overload. SECONDARY DIAGNOSES: 1. Chronic obstructive pulmonary disease. 2. Hypertension. DISCHARGE MEDICATIONS: 1. Tylenol 3 p.o. q.8 hours. 2. Fosamax 70 mg p.o. 7 days. 3. Zyrtec 10 mg p.o. at bedtime. 4. Cymbalta 60 mg p.o. daily. 5. Doxepin 25 mg p.o. b.i.d. 6. Vitamin D2 37601 units p.o. daily. 7. Advair Diskus 1 inhalation 250/50 b.i.d. 8. Folic 1 mg acid p.o. daily. 9. Furosemide 40 mg p.o. daily. 10. Gabapentin 600 mg p.o. t.i.d. 11. Isosorbide mononitrate 30 mg p.o. daily. 12. Metoprolol 25 mg p.o. daily. 13. Nitroglycerin 0.4 mg p.o. q.5 minutes p.r.n. 14. Omeprazole 20 mg p.o. daily. 15. Potassium chloride 20 mEq p.o. b.i.d. with meals. 16. Rosuvastatin 20 mg p.o. daily. 17. Spiriva 1 puff inhalation b.i.d. 18. Metformin 250 mg p.o. q.a.m. with meals. DISCONTINUED MEDICATIONS: 1. Docusate. 2. Magnesium. 3. Phosphorus. HISTORY OF PRESENT ILLNESS/HOSPITAL COURSE: The patient presented to the ED from [place] for evaluation of dehydration and dizziness. Similar to a recent admission, the AC in her RV was not working, and she became dehydrated. In the [place] ED, she had a CK of 486, creatinine of 2.12, and a potassium of 1.7 , and blood glucose of 54. Her metformin and Lasix were held. She was started on D5 fluids and we stabilized her blood glucose before being switched to lactated Ringer's. Her potassium, CK, and creatinine were continuously monitored and improved throughout the hospitalization. She ultimately had stabilization of her blood glucose, creatinine of 0.86, and her CK had come down. Her phosphorus and magnesium were also monitored and replaced on hospitalization. After not getting home Lasix for 4 days, her BNP was found to be 445.9. A cardiac echo was done with results above. After her GAL resolved her home lasix was restarted. She was seen by Physical therapy. They recommended home health with PT. She was discharged with the news that someone was installing an AC unit into her trailer today and instructions to follow up with her PCP to ensure HH/PT is in place. CONDITION ON DISPOSITION: Stable. DISCHARGE INSTRUCTIONS: 1. Location: Home with home health and PT. 2. Diet: Carb conscious. 3. Activity: As tolerated with walker. 4. Followup: With PCP within 1 week to monitor potassium and dehydration status. 5. Please note, patient was started on b.i.d. potassium during this visit as her hypokalemia persisted throughout her hospitalization and we restarted her Lasix towards the end of the hospitalization with continued hypokalemia. Please continue to monitor her potassium. Job ID: [id number] [facility]
--- NOTE | 2019-05-07 23:44 | PQF ---
[employer] Summer Intern Crystal Reports [facility] FREDI Junior EVETTE EL MD [id number] [id number] CLINICAL DOCUMENTATION CLARIFICATION FORM: POST DISCHARGE Addendum to original discharge summary date: ____ Late entry note date: __ DATE: 05/08/2019 ATTN: EVETTE EL MD Please exercise your independent, professional judgment in responding to the clarification form. Clinical indicators are provided on the bottom of this form for your review Please check appropriate box(s): HEART FAILURE: Not an active problem. A. TYPE: [ ] Systolic / HFrEF [ ] Diastolic / HFpEF [ ] Combined Systolic / Diastolic B. ACUITY [ ] Acute [ ] Acute on Chronic [ ] Chronic [ ] Other diagnosis [ ] Unable to determine In addition, please specify: Present on Admission (POA): [ ] Yes [ x ] No [ ] Unable to determine For continuity of documentation, please document condition throughout progress notes and discharge summary. Thank You. CLINICAL INDICATORS - SIGNS / SYMPTOMS / LABS Ejection Fraction =_60-65% - Documented in DS on 05/05 by Delvin Segovia MD BNP 445.9 on 04/29 - Documented in laboratory result Fluid overload- Documented in DS on 05/05 by Delvin Segov[address] MD CT abdomen/pelvis: bilateral pleural fluid with consolidation - Documented in DS on 05/05 by Delvin Segovia MD original CXR was negative on admission Patient was lasix at home, d/c at admission 2/2 GAL- Documented in family medicine PNs on 05/04 by Delvin Segovia MD RISKS: Hypertension - Documented in H&P on 04/25 by Houston Gracia GAL - Documented in DS on 05/05 by Delvin Segovia MD TREATMENTS: Echocardiogram we resatrted her lasix towards the end of the hospitalization - Documented in DS on 05/05 by Delvin Segovia MD added homelasix and monitor electrolytes - Documented in family medicine PNs on 05/04 by Delvin Segovia MD [employer] Crystal Reports Win[employer] Viewer (This form is maintained as a part of the permanent medical record) 2014 [employer]. All Rights Reserved [email or web address] [not provided] MTDD
--- NOTE | 2019-05-10 | EKG ---
Test Reason : Blood Pressure : / mmHG Vent. Rate : 080 BPM Atrial Rate : 091 BPM P-R Int : 132 ms QRS Dur : 066 ms QT Int : 308 ms P-R-T Axes : 071 066 257 degrees QTc Int : 355 ms Normal sinus rhythm with Premature ventricular complexes Low voltage QRS Cannot rule out Anteroseptal infarct , age undetermined Baseline Artifact Present Confirmed by IRENE MCCRACKEN ([id number]), graphics editor SHAWN CANALES ([id number]) on 05/10/2019 12:00:33 AM Referred By: Confirmed By:IRENE MCCRACKEN
== END 2019-05-05 13:05 | disposition home health service (06) | DRG 683 ==
LOC: ERS 19:24 → T4-A 23:25 → 2NO 04-26 08:08 → OBSVTOIN 04-26 19:09
PROVIDERS: ADMIT Family Medicine; ATTEND Family Medicine
DX: N17.9 Acute kidney failure, unspecified (principal); T67.0XXA Heatstroke and sunstroke, initial encounter; K57.92 Diverticulitis of intestine, part unspecified, without perforation or abscess without bleeding; J90 Pleural effusion, not elsewhere classified; J44.9 Chronic obstructive pulmonary disease, unspecified; E83.51 Hypocalcemia; M54.9 Dorsalgia, unspecified; G89.29 Other chronic pain; E16.2 Hypoglycemia, unspecified; E83.39 Other disorders of phosphorus metabolism; M81.0 Age-related osteoporosis without current pathological fracture; I45.81 Long QT syndrome; K21.9 Gastro-esophageal reflux disease without esophagitis; F41.9 Anxiety disorder, unspecified; F17.200 Nicotine dependence, unspecified, uncomplicated; E87.70 Fluid overload, unspecified; E87.6 Hypokalemia; E86.0 Dehydration; R82.71 Bacteriuria; R74.8 Abnormal levels of other serum enzymes; Z79.84 Long term (current) use of oral hypoglycemic drugs; Z88.8 Allergy status to other drugs, medicaments and biological substances; Z79.899 Other long term (current) drug therapy
CPT/HCPCS: 36415; 36416; 74177; 80048; 81002; 82533; 82550; 82570; 83735; 83880; 83930; 83935; 84100; 84133; 84300; 85025; 93005; 93010; 93306; 94640; 96365; 96375; J3411; J3475; J3480; J3490; J7042; J7050; J7120; J7121; Q9967

== ENCOUNTER 2019-07-13 08:46 | Outpatient (CLI) | payer MEDICARE, MEDICAID ==
--- NOTE | 2019-07-13 09:36 | RAD ---
Cervical spine 4 views: 07/13/2019 COMPARISON: None HISTORY: Cervical radiculopathy FINDINGS: Frontal imaging of the cervical spine demonstrates multilevel mid cervical spine facet and uncovertebral osteophyte formation, right greater than left, most prominent at C5-C6. Neutral lateral examination demonstrates mild anterolisthesis at C3-4 measuring 2 mm and at C4-5 neisha uring 2 mm. Flexion and extension imaging demonstrates stable anterolisthesis at C3-4 and C4-5. IMPRESSION: Cervical degenerative change as detailed above.
--- NOTE | 2019-07-13 10:02 | MRI ---
MRI CERVICAL SPINE WITHOUT CONTRAST: HISTORY: Cervical radiculopathy. Neck pain after falling 4 years ago.. COMPARISON: None. FINDINGS: Appropriate T1 marrow signal intensity of the cervical vertebrae. Cervical spine vertebral body heigh t is maintained. No fracture. Visualized brain parenchyma, cervicomedullary junction, cervical cord and the upper thoracic cord hav e a normal size and signal intensity. There is no STIR hyperintensity to suggest ligamentous injury or vertebral body edema. Spondylolisthesis: 3.5 mm of anterolisthesis of C3 upon C4. 3.1 mm of anterolisthesis of C4 upon C5. 2.5 cm anterolisthesis of C5 upon C1. C2-C3: No significant central canal stenosis. Mild right foraminal narrowing due to uncovertebral hyp ertrophy. Left neural foramen is patent. C3-C4: No significant central canal stenosis or significant neural foraminal narrowing. C4-C5: No significant central canal stenosis or significant neural foraminal narrowing. C5-C6: Broad-based disc bulge abuts the thecal sac. There is flattening the ventral thecal sac and ce rvical cord. Mild to moderate central canal stenosis. No cord signal abnormality. Mild right foraminal narrowing due to uncovertebral hypertrophy. Left neural foramen is patent. C6-C7: Broad-based disc bulge with a central/right paracentral disc protrusion. There is mass effect and deformity of the right aspect of the cord. Moderate to severe central canal stenosis, without cord signal abnormality. Mild right neural foraminal narrowing. Left neural foramen is patent. C7-T1: No significant central canal stenosis or significant neural foraminal narrowing. IMPRESSION: Degenerative changes of the cervical spine as detailed above. The greatest degree of central canal st enosis and degenerative changes of the disc are at the C6-C7 level. Transcribed Date/Time: 07/13/2019 11:11 AM
== END 2019-07-13 08:47 | disposition home or self-care (01) ==
LOC: BICMRI 08:46
PROVIDERS: ATTEND Nurse Practitioner Family
DX: M47.22 Other spondylosis with radiculopathy, cervical region (principal); M48.02 Spinal stenosis, cervical region; M50.123 Cervical disc disorder at C6-C7 level with radiculopathy
CPT/HCPCS: 72050; 72141

== ENCOUNTER 2019-08-24 08:33 | Outpatient (CLI) | payer MEDICARE, MEDICAID ==
--- NOTE | 2019-08-24 10:56 | BD ---
DEXA BONE DENSITY STUDY: Date: 08/24/19 HISTORY: Postmenopausal. FINDINGS: Lumbar Spine: BMD (g/cm2) L1 0.719 T-Score: -2.5 L2 0.807 T-Score: -2.0 L3 0.864 T-Score: -2.0 L4 1.037 T-Score: -0.2 Total 0.868 T-Score: -1.6 Left Femoral Neck: 0.550 T-Score: -2.7 Total Femur: 0.778 T-Score: -1.3 IMPRESSION: Osteoporosis of the left femoral neck and osteopenia of the lumbar spine. POS: [facility]
== END 2019-08-24 08:34 | disposition home or self-care (01) ==
LOC: BICMAMMO 08:33
PROVIDERS: ATTEND Internal Medicine Rheumatology
DX: M81.0 Age-related osteoporosis without current pathological fracture (principal); M85.88 Other specified disorders of bone density and structure, other site
CPT/HCPCS: 77080

== ENCOUNTER 2019-09-11 14:38 | Inpatient (IN) | payer MEDICARE, OTHER ==
--- NOTE | 2019-09-11 15:14 | RAD ---
Right hip 2 views HISTORY: Fall. Right hip pain. FINDINGS: Mild joint space narrowing, osteophytosis, and subchondral sclerosis. No acute fracture or dislocation. IMPRESSION: Mild osteoarthritic changes right hip.
--- NOTE | 2019-09-11 15:16 | RAD ---
Left ankle 3 views HISTORY: Left ankle pain. FINDINGS: Ankle mortise and talar dome are intact. Soft tissue swelling about the ankle. No acute fra cture, dislocation, or soft tissue gas evident. IMPRESSION: No acute osseous abnormalities are demonstrated.
--- NOTE | 2019-09-11 15:18 | RAD ---
RIGHT KNEE 4 VIEWS: HISTORY: Fall, right knee pain. FINDINGS/IMPRESSION: Degenerative changes are seen. No acute fracture or dislocation is identified. POS: [facility]
[2019-09-11 15:23] LABS: #Basophils 0.1 thou/uL (0.0-0.2); #Eosinphils 0.2 thou/uL (0.0-0.7); #Lymphocytes 2.1 thou/uL (1.20-3.40); #Monocytes 1.1 thou/uL (0.11-0.59); #Neutrophils 4.8 thou/uL (1.40-6.50); %Lymphocytes 25.2 % (21.0-51.0); %Monocytes 13.3 % (0.0-10.0); %Neutrophils 58.5 % (42.0-75.0); Hemoglobin 13.9 g/dL (12.0-16.0); Mean Corpuscular HGB CONC 33.9 g/dL (32.0-36.0); Mean Corpuscular Hemoglobin 31.3 pg (27.0-31.0); Mean Corpuscular Volume 92.3 fL (78.0-98.0); Mean Platelet Volume 6.8 fL (7.4-10.4); Platelet Count 336 thou/uL (130-400); RBC Distribution Width 11.8 % (11.5-14.5); Red Blood Cell (RBC) Count 4.44 mill/uL (4.20-5.40); White Blood Cell (WBC) Count 8.3 thou/uL (4.8-10.8)
[2019-09-11 15:49] LABS: Anion Gap 16 mmol/L (10-20); BUN (Urea Nitrogen) 8 mg/dL (9.8-20.1); Calc. Creatinine Clearance 0 mL/min (70-130); Calcium 8.9 mg/dL (7.8-10.44); Carbon Dioxide 28 mmol/L (23-31); Chloride 99 mmol/L (98-107); Estimated GFR-MDRD 56; Glucose 91 mg/dL (80-115); Potassium 3.3 mmol/L (3.5-5.1); Sodium 140 mmol/L (136-145)
[2019-09-11] MEDS ORDERED: Ibuprofen 200 MG TAB ONE (16:19)
[2019-09-11] MEDS ORDERED: Sulfameth/Trimethoprim DS 800-160mg TAB ONE (16:19)
[2019-09-11] MEDS ORDERED: Potassium Chloride 20 MEQ TAB ONE (17:41)
[2019-09-11 18:28] LABS: Lactic Acid 1.2 mmol/L (0.5-2.2)
--- NOTE | 2019-09-11 19:18 | PDOC.FPRHP ---
- History of Present Illness Chief Complaint: Fall History of Present Illness: Patient is a 69 y/o female who presents to the ED for evaluation of a fall. The patient states that she fell on her left side 2-3 days prior and since that time has had increasing pain in her left hip and left foot. She has also noticed that her left leg has become slightly erythematous, warm, and swollen. She admits to a history of falls in the past, but denies a history of frequent skin infections or known MRSA contacts. She states that the pain has progressed up her leg over the past several days, currently being localized at the mid-tibial. She has also noticed an increased sensation of numbness and tingling, but denies an inability to bear weight or a restriction to her ROM. She denies fevers, chills, severe weight loss, chest pain and worsening SOB, as well as any other similar injuries anywhere else on her body. ED Course: While in the ED, Hip, Knee and Ankle X-Rays - all of which revealed mild degenerative changes without acute osseous or soft tissue processes. A BMP was performed, indicating mild hypokalemia, and as such the patient was administered K-Dur, in addition to Bactrim DS x1 and Motrin 600 mg. - Allergies/Adverse Reactions Allergies Allergy/AdvReac Type Severity Reaction Status Date / Time erythromycin base Allergy Verified 09/11/19 20:13 tetracycline Allergy Verified 09/11/19 20:13 - Home Medications Medication Instructions Recorded Confirmed Type Alendronate Sodium [Fosamax] 70 mg PO Q7D 08/02/17 09/11/19 History DULoxetine [Cymbalta] 60 mg PO DAILY 08/02/17 09/11/19 History Ergocalciferol (Vitamin D2) 50,000 unit PO Q7D 08/02/17 09/11/19 History [Vitamin D2] Folic Acid [Folvite] 1 mg PO DAILY tab 08/03/17 09/11/19 Rx Metoprolol Succinate [Toprol XL] 25 mg PO DAILY #30 tab 08/03/17 09/11/19 Rx Acetaminophen With Codeine 1 tablet PO Q8HR PRN 04/12/19 09/11/19 History [Tylenol with Codeine #3] Doxepin HCl 25 mg PO BID 04/12/19 09/11/19 History Furosemide 40 mg PO DAILY 04/12/19 09/11/19 History Gabapentin 600 mg PO TID 04/12/19 09/11/19 History Rosuvastatin [Crestor] 20 mg PO HS 04/12/19 09/11/19 History Fluticasone/Salmeterol [Advair 1 inh IH BID 04/13/19 09/11/19 History Diskus 250/50] Omeprazole 20 mg PO DAILY #30 capsule. 04/14/19 09/11/19 Rx Potassium Chloride [K-Dur] 20 meq PO BID-WM 30 Days #60 tab 05/04/19 09/11/19 Rx Isosorbide Mononitrate [Isosorbide mg PO BID 09/11/19 History Mononitrate ER] Montelukast Sodium [Singulair] 10 mg PO HS 09/11/19 09/11/19 History - History PMHx: PUD, DM2, HLD, CHF, COPD, Chronic LBP PSHx: LORNA, Shoulder Reconstruction FHx: Mother & Father (DM2, HTN, HLD) Social: Tobacco Abuse (50 PY), Denies EtOH and Drug Abuse Code: Full - Review of Systems General: denies: fever/chills, weight/appetite/sleep changes Eyes: reports: vision changes (Chronic). denies: eye pain ENT: denies: nasal congestion, rhinorrhea Respiratory: reports: cough, exercise intolerance. denies: congestion, shortness of breath Cardiovascular: reports: edema. denies: chest pain Gastrointestinal: reports: diarrhea, constipation. denies: nausea, vomiting Genitourinary: denies: dysuria, discharge Skin: reports: rashes Musculoskeletal: reports: pain, arthritis/arthralgias Neurological: reports: weakness. denies: syncope Psychological: reports: anxiety, depression - Vital signs BP: [108/56] HR: [84] RR: [18] Tmax: [97.7] Pox: [92]% on [Room] Wt: [60 kg] - Physical Exam Constitutional: NAD, awake, alert and oriented, well developed HEENT: normocephalic and atraumatic, PERRLA, EOMI, conjunctiva clear, no scleral icterus, grossly normal vision, grossly normal hearing, normal nasal mucosa, MMM, oropharynx clear Neck: supple, FROM, trachea midline, no LAD, no JVD Chest: no-tender to palpation, no lesions Heart: RRR, normal S1/S2, no murmurs/rubs/gallops, pulses present Lungs: CTAB, no respiratory distress, no rales/rhonchi, no retractions, other ( Poor air movement with scattered wheezes, likely chronic) Abdomen: soft, non-tender, bowel sounds present, no masses/distention Musculoskeletal: normal structure, ROM grossly normal Neurological: no focal deficit Skin: other (Mild erythema w/o obvious ulceration at the level of the left mid- tibia. FROM intact. No fluctuance noted and no obvious TTP. Distal pulses intact.) Heme/Lymphatic: no unusual bruising or bleeding, no purpura, no petechia Psychiatric: normal mood and affect, intact recent and remote memory FMR H&P: Results - Labs Result Diagrams: 09/11/19 15:12 09/12/19 07:58 Lab results: WBC 8.3 thou/uL (4.8-10.8) 09/11/19 15:12 Hgb 13.9 g/dL (12.0-16.0) 09/11/19 15:12 Hct 41.0 % (36.0-47.0) 09/11/19 15:12 MCV 92.3 fL (78.0-98.0) 09/11/19 15:12 Plt Count 336 thou/uL (130-400) 09/11/19 15:12 Neutrophils % 58.5 % (42.0-75.0) 09/11/19 15:12 Sodium 140 mmol/L (136-145) 09/11/19 15:11 Potassium 3.3 mmol/L (3.5-5.1) L 09/11/19 15:11 Chloride 99 mmol/L (98-107) 09/11/19 15:11 Carbon Dioxide 28 mmol/L (23-31) 09/11/19 15:11 BUN 8 mg/dL (9.8-20.1) L 09/11/19 15:11 Creatinine 0.98 mg/dL (0.6-1.1) 09/11/19 15:11 Glucose 91 mg/dL (80-115) 09/11/19 15:11 Lactic Acid 1.2 mmol/L (0.5-2.2) 09/11/19 18:02 Calcium 8.9 mg/dL (7.8-10.44) 09/11/19 15:11 FMR H&P: A/P - Problem List (1) Cellulitis Current Visit: Yes Status: Acute Code(s): L03.90 - CELLULITIS, UNSPECIFIED (2) Hypokalemia Current Visit: No Status: Acute Code(s): E87.6 - HYPOKALEMIA (3) Anxiety Current Visit: No Status: Chronic Code(s): F41.9 - ANXIETY DISORDER, UNSPECIFIED (4) COPD (chronic obstructive pulmonary disease) Current Visit: No Status: Chronic Qualifiers: COPD type: unspecified COPD Qualified Code(s): J44.9 - Chronic obstructive pulmonary disease, unspecified (5) HTN (hypertension) Current Visit: No Status: Chronic Code(s): I10 - ESSENTIAL (PRIMARY) HYPERTENSION Qualifiers: Hypertension type: unspecified Qualified Code(s): I10 - Essential (primary ) hypertension - Plan Patient is a 69 y/o female who presents to the ED for left leg pain. 1. Cellulitis -No signs of sepsis or nectrotizing fasciitis - physical exam remarkable only for mild erythema, warmth and edema -WBC: 8.3 -Lactic Acid: 2.1 -s/p Bactrim DS x1 in the ED - will continue BID -Hip, Knee, Ankle X-Rays: NAF -RLE Venous US: NAF -PT/OT Consults: Pending -Rehab Screen: Pending 2. Anxiety -Well-controlled at this time -Continue home medication regimen 3. COPD -Like 2/2 to tobacco abuse -Continue home medication regimen 4. HTN -BP: 108/56 on 09/11/19 -Continue home medication regimen 5. Tobacco Abuse -Extensive tobacco abuse -Patient counseled on the importance of tobacco abuse cessation -Nicotine 21 mg Patch 6. Hypokalemia -K: 3.3 on 09/11/19 -s/p K-Dur 20 mg in ED -Will restart home medication regimen 7. CHF -No evidence of fluid overload or worrisome cardiopulmonary signs or symptoms -Restart home medication regimen 8. DM2 -Glucose: 91 on 09/11/19 -Patient does not endorse an active medication regimen at this time - will not initiate additional medication regimen -Hypoglycemia Protocol Code: Full Diet: HH/CC Activity: Ambulate w/ Assist VTE PPx: Lovenox 40 mg SC Dispo: Patient is currently stable on the Medical Floor for treatment of LLE Cellulitis. Continue antibiotic regimen as per above and manage chronic health conditions until approved by [facility] for transfer for inpatient rehab. Expected LOS > 48H. FMR H&P: Upper Level - Pertinent history 69 y/o F PMHx COPD, prediabetes, tobacco abuse presents to the ED after a fall. It was a ground level mechanical fall from uneven slippery ground outside her trailer she lives in. She reports multiple falls lately. She reports chronic R hip pain and new L leg pain over the past couple of days. She reports redness and swelling and pain that have been increasing. She has not seen a doctor for this or been started on abx. Denies any fevers, chills. - Pertinent findings Vitals: BP 129/72, HR 94, RR 19, Temp 98.7, O2 sat 94% on RA PE: Gen - alert, oriented, NAD HEENT - MMM CV - RRR, no murmurs Lungs - CTAB no wheezes Ext - erythematous L leg with swelling and tenderness as well as some induration. No fluctuance, 2+ pedal pulses bilaterally R hip x-ray - OA of R hip L ankle x-ray - soft tissue swelling R knee x-ray degenerative changes seen - Plan Date/Time: 09/11/191916 IRaven MD, PGY-3, have evaluated this patient and agree with findings/ plan as outlined by manager of international resident. Pertinent changes/additions are listed here. 1. Recurrent Falls/Deconditioning Pt with multiple falls lately, no serious injuries. She has multiple comorbidities and appears to be deconditioned. x-rays showed no fractures -PT/OT/rehab screen 2. LLE Cellulitis Pt with erythematous, warm, swollen L calf worsening over the past few days. No fevers -Bactrim -LE doppler to rule out DVT 3. Hypokalemia Mild at 3.3. Pt skipped her doses of potassium over the past couple of days so likely 2/2 lasix use -Replete and monitor 4. COPD -Continue home meds 5. prediabetes -Monitor, CC diet 6. PUD -Cont PPI 7. OA -Tylenol prn pain 8. HTN -Continue home meds 9. HLD -Continue home meds Dispo: Obs on medical LOS: Likely less than 48 hours Addendum - Attending - Attending Attestation Date/Time: 09/12/19 1033 I personally evaluated the patient and discussed the management with Dr. Ramsey /Robbie I agree with the History, Examination, Assessment and Plan documented above with any addition or exceptions noted below. 69 yo female living in alone RV with multiple animals with repeated falls felt to be mechanical in nature. patient denies syncopal symptoms. Patient found by EMS with poor living conditions and noted in ER with no fractures but cellulitis LLE. Patient is APS case will admit observation and plan transfer to rehab as bed available.
[2019-09-11] MEDS ORDERED: Dextrose 5% in Water 1,000 ML IV PRN (19:57)
[2019-09-11] MEDS ORDERED: Dextrose 50% Abboject 50 ML SYRINGE SLOW IVP PRN (19:57)
[2019-09-11 20:00] VITALS: BMI 24.8
[2019-09-11] MEDS ORDERED: Non-Formulary Item 1 EACH (Fluticasone/Salmeterol [Advair Diskus 250/50] 1 INH) IH SCH (21:00)
[2019-09-11] MEDS ORDERED: Famotidine 20 MG TAB PO SCH (21:00)
[2019-09-11] MEDS ORDERED: Non-Formulary Item 1 EACH (Cetirizine Hcl [Zyrtec] 10 MG) PO SCH (21:00)
[2019-09-11] MEDS ORDERED: TIOTROPIUM BROMIDE INH SCH (21:00)
[2019-09-11] MEDS ORDERED: Ergocalciferol 1.25 MG(50,000 UNITS) CAP PO SCH (21:00)
[2019-09-11] MEDS ORDERED: Isosorbide Mononitrate (ER) 30 MG TAB PO SCH (21:15)
[2019-09-11] MEDS: Doxepin HCl 25 MG CAP PO SCH (21:18)
[2019-09-11] MEDS: Loratadine 10 MG TAB PO SCH (21:18)
[2019-09-11] MEDS: Nicotine 21 MG PATCH TD SCH (21:19)
[2019-09-11] MEDS: Gabapentin 300 MG CAP PO SCH (21:19)
[2019-09-11] MEDS: Acetaminophen 325 MG TAB PO PRN (21:19)
[2019-09-11] MEDS: Ipratropium Bromide 2.5 ml Neb NEB SCH (23:10)
--- NOTE | 2019-09-12 05:34 | PDOC.FM ---
- Subjective Subjective: Pt was getting doppler study done at time of evaluation. Denied any complaints aside from her chronic back pain that was exacerbated by her recent fall. She continues to be agreeable to [facility]. Denies any leg pain , SOB, fever/chills. - Objective Vital Signs & Weight: Vital Signs (12 hours) Temp Pulse Resp BP BP Pulse Ox 09/12/19 04:14 97.8 F 79 16 106/61 92 L 09/12/19 00:18 97.7 F 84 18 108/56 L 92 L 09/11/19 23:10 84 16 94 L 09/11/19 19:53 98.7 F 94 20 118/59 L 93 L Weight Weight 59.965 kg I&O: 09/10/19 09/11/19 09/12/19 06:59 06:59 06:59 Intake Total 240 Balance 240 Result Diagrams: 09/11/19 15:12 09/12/19 07:58 Phys Exam - Physical Examination Constitutional: NAD HEENT: moist MMs Neck: full ROM Respiratory: no wheezing, no rales, no rhonchi, clear to auscultation bilateral Cardiovascular: RRR, no significant murmur, no rub Gastrointestinal: soft, non-tender Musculoskeletal: pulses present Neurological: moves all 4 limbs Psychiatric: normal affect, A&O x 3 Deviation from normal: Erythema to medial aspect of left lower leg, no raised borders, dry/intact Dx/Plan (1) Cellulitis Code(s): L03.90 - CELLULITIS, UNSPECIFIED Status: Acute (2) Hypokalemia Code(s): E87.6 - HYPOKALEMIA Status: Acute (3) COPD (chronic obstructive pulmonary disease) Status: Chronic Qualifiers: COPD type: unspecified COPD Qualified Code(s): J44.9 - Chronic obstructive pulmonary disease, unspecified (4) HTN (hypertension) Code(s): I10 - ESSENTIAL (PRIMARY) HYPERTENSION Status: Chronic Qualifiers: Hypertension type: unspecified Qualified Code(s): I10 - Essential (primary ) hypertension - Plan Plan: Recurrent Falls/Deconditioning Pt with multiple falls lately, no serious injuries. She has multiple comorbidities and appears to be deconditioned. x-rays showed no fractures -PT/OT/rehab screen pending LLE Cellulitis Pt with erythematous, warm, swollen L calf worsening over the past few days following trauma to the region. No fevers -Bactrim -LE doppler to rule out DVT Hypokalemia Mild at 3.3. Pt skipped her doses of potassium over the past couple of days so likely 2/2 lasix use -Replaced last night, will repeat bmp this am, continue home potassium Prediabetes -Monitor, CC diet PUD, HTN, HLD, COPD -Cont home rx OA -Tylenol prn pain Dispo: Obs on medical LOS: Likely less than 48 hours Addendum - Attending - Attending Attestation Date/Time: 09/12/19 8565 I personally evaluated the patient and discussed the management with Dr. Gracia I agree with the History, Examination, Assessment and Plan documented above with any addition or exceptions noted below. Patient area of cellulitis improved recommend EKG for rhythm check. Falls per history appears to have been mechanical.
[2019-09-12] MEDS: Sulfameth/Trimethoprim DS 800-160mg TAB PO SCH ×2 (06:02→17:14)
[2019-09-12] MEDS: Ipratropium Bromide 2.5 ml Neb NEB SCH ×3 (07:45→20:01)
[2019-09-12] MEDS: Mometasone/Formoterol 120 PUFF INHALER INH SCH ×2 (07:54→19:58)
--- NOTE | 2019-09-12 08:08 | ULT ---
US Venous Doppler Lt Unilat History: Edema pain Comparison: None. Findings: Real-time grayscale, color, and spectral analysis left lower extremity venous system was pe rformed. The common femoral, femoral, proximal portions greater saphenous and deep femoral veins as well as the popliteal posterior tibial veins were interrogated. No flow, augmentation, and compression. Impression: No deep venous thrombosis.
[2019-09-12] MEDS: Potassium Chloride 20 MEQ TAB PO SCH ×2 (08:12→16:06)
[2019-09-12] MEDS: Doxepin HCl 25 MG CAP PO SCH ×2 (08:12→19:57)
[2019-09-12] MEDS: Isosorbide Mononitrate (ER) 30 MG TAB PO SCH ×2 (08:12→19:57)
[2019-09-12] MEDS: Furosemide 40 MG TAB PO SCH (08:12)
[2019-09-12] MEDS: DULoxetine 60 MG CAP PO SCH (08:12)
[2019-09-12] MEDS: Gabapentin 300 MG CAP PO SCH ×3 (08:12→19:57)
[2019-09-12] MEDS: Folic Acid 1 MG TAB PO SCH (08:12)
[2019-09-12] MEDS: Rosuvastatin 20 MG TAB PO SCH (08:13)
[2019-09-12] MEDS: Enoxaparin Sodium 40 MG/0.4 ML SYRINGE SC SCH (08:13)
[2019-09-12 08:30] LABS: Anion Gap 12 mmol/L (10-20); BUN (Urea Nitrogen) 10 mg/dL (9.8-20.1); Calc. Creatinine Clearance 53 mL/min (70-130); Calcium 8.5 mg/dL (7.8-10.44); Carbon Dioxide 29 mmol/L (23-31); Chloride 102 mmol/L (98-107); Estimated GFR-MDRD 57; Glucose 94 mg/dL (80-115); Potassium 3.2 mmol/L (3.5-5.1); Sodium 140 mmol/L (136-145)
[2019-09-12] MEDS ORDERED: Non-Formulary Item 1 EACH (Omeprazole [Omeprazole] 20 MG) PO SCH (09:00)
[2019-09-12] MEDS ORDERED: Isosorbide Mononitrate (ER) 30 MG TAB PO SCH (09:00)
[2019-09-12] MEDS ORDERED: Prevnar 13-Val Conj/PF 0.5 ML SYRINGE IM ONE (09:00)
[2019-09-12] MEDS: Acetaminophen 325 MG TAB PO PRN ×2 (16:10→20:17)
[2019-09-12] MEDS: Loratadine 10 MG TAB PO SCH (19:57)
[2019-09-12] MEDS: Nicotine 21 MG PATCH TD SCH (19:58)
[2019-09-13] MEDS: Ipratropium Bromide 2.5 ml Neb NEB SCH ×4 (01:18→19:48)
[2019-09-13] MEDS: Acetaminophen 325 MG TAB PO PRN ×2 (04:35→20:17)
[2019-09-13 04:58] LABS: Anion Gap 10 mmol/L (10-20); BUN (Urea Nitrogen) 13 mg/dL (9.8-20.1); Calc. Creatinine Clearance 49 mL/min (70-130); Calcium 8.4 mg/dL (7.8-10.44); Carbon Dioxide 28 mmol/L (23-31); Chloride 107 mmol/L (98-107); Estimated GFR-MDRD 53; Glucose 94 mg/dL (80-115); Magnesium 2.1 mg/dL (1.6-2.6); Phosphorus 3.4 mg/dL (2.3-4.7); Potassium 3.8 mmol/L (3.5-5.1); Sodium 141 mmol/L (136-145)
--- NOTE | 2019-09-13 05:44 | PDOC.FM ---
- Subjective Subjective: Pt states her leg is looking and feeling much better today. Went walking w/ PT twice yesterday and went well. States she talked to CM and is considering possible discharge home w/ outpt admission to a SNF vs inpt rehab. We discussed risks and benefits of this and I agreed to talk to CM about pt's current options. - Objective Vital Signs & Weight: Vital Signs (12 hours) Temp Pulse Resp BP BP Pulse Ox 09/13/19 03:36 98.8 F 83 16 101/58 L 94 L 09/13/19 01:18 94 L 09/12/19 23:20 80 20 119/56 L 92 L 09/12/19 20:01 94 L 09/12/19 20:00 98.3 F 84 20 94/55 L 93 L 09/12/19 19:58 94 L Weight Weight 60.691 kg I&O: 09/11/19 09/12/19 09/13/19 06:59 06:59 06:59 Intake Total 240 1650 Output Total 500 1850 Balance -260 -200 Result Diagrams: 09/11/19 15:12 09/13/19 04:16 Phys Exam - Physical Examination Constitutional: NAD HEENT: moist MMs, sclera anicteric Neck: supple, full ROM Respiratory: no wheezing, no rales, no rhonchi, clear to auscultation bilateral Cardiovascular: RRR, no significant murmur, no rub Gastrointestinal: soft, non-tender Musculoskeletal: no edema Neurological: non-focal, moves all 4 limbs Psychiatric: normal affect, A&O x 3 Deviation from normal: Erythema of LLE is nearly resolved, no lesions, skin intact, dry Dx/Plan (1) Cellulitis Code(s): L03.90 - CELLULITIS, UNSPECIFIED Status: Acute (2) Hypokalemia Code(s): E87.6 - HYPOKALEMIA Status: Acute (3) COPD (chronic obstructive pulmonary disease) Status: Chronic Qualifiers: COPD type: unspecified COPD Qualified Code(s): J44.9 - Chronic obstructive pulmonary disease, unspecified (4) HTN (hypertension) Code(s): I10 - ESSENTIAL (PRIMARY) HYPERTENSION Status: Chronic Qualifiers: Hypertension type: unspecified Qualified Code(s): I10 - Essential (primary ) hypertension - Plan Plan: Recurrent Falls/Deconditioning Pt with multiple falls lately, no serious injuries. She has multiple comorbidities and appears to be deconditioned. x-rays showed no fractures -PT/OT/rehab screen pending -CM consulted, attempting inpt rehab and awaiting insurance authorization -EKG ordered today LLE Cellulitis -rapidly improving -Bactrim, continue outpt for full 10 day treatment -LE doppler negative for DVT Hypokalemia - resolved -2/2 missed potassium doses at home, currently resolved Prediabetes -Monitor, CC diet PUD, HTN, HLD, COPD -Cont home rx OA -Tylenol prn pain Dispo: Inpt medical. PT/OT, eval for inpt rehab, continued abx and wound monitoring PCP: Dr. Castillo Addendum - Attending - Attending Attestation Date/Time: 09/13/19 8557 I personally evaluated the patient and discussed the management with Dr. Gracia I agree with the History, Examination, Assessment and Plan documented above with any addition or exceptions noted below. For transfer to swing bed or inpatient rehab in AM per previous agreed plan. APS notified history of unsafe home environment would need APS home environment evaluation prior being sent to home.
[2019-09-13] MEDS: Sulfameth/Trimethoprim DS 800-160mg TAB PO SCH ×2 (06:06→17:50)
[2019-09-13] MEDS: Mometasone/Formoterol 120 PUFF INHALER INH SCH ×2 (08:08→19:39)
[2019-09-13] MEDS: Potassium Chloride 20 MEQ TAB PO SCH ×2 (09:04→15:14)
[2019-09-13] MEDS: DULoxetine 60 MG CAP PO SCH (09:04)
[2019-09-13] MEDS: Furosemide 40 MG TAB PO SCH (09:04)
[2019-09-13] MEDS: Gabapentin 300 MG CAP PO SCH ×3 (09:04→20:14)
[2019-09-13] MEDS: Doxepin HCl 25 MG CAP PO SCH ×2 (09:04→20:14)
[2019-09-13] MEDS: Folic Acid 1 MG TAB PO SCH (09:04)
[2019-09-13] MEDS: Isosorbide Mononitrate (ER) 30 MG TAB PO SCH ×2 (09:04→20:14)
[2019-09-13] MEDS: Rosuvastatin 20 MG TAB PO SCH (09:05)
[2019-09-13] MEDS: Enoxaparin Sodium 40 MG/0.4 ML SYRINGE SC SCH (09:05)
[2019-09-13] MEDS: Nicotine 21 MG PATCH TD SCH (17:51)
[2019-09-13] MEDS: Loratadine 10 MG TAB PO SCH (20:14)
[2019-09-14] MEDS: Ipratropium Bromide 2.5 ml Neb NEB SCH ×4 (01:23→18:11)
[2019-09-14] MEDS: Sulfameth/Trimethoprim DS 800-160mg TAB PO SCH ×2 (05:00→17:01)
--- NOTE | 2019-09-14 06:04 | PDOC.FM ---
- Subjective Subjective: Denies any complaints or events overnight. Notes continued improvement in left lower leg cellulitis - no current erythema or pain. Denies any fevers or chills. Notes she is eager for discharge home or to rehab facility. - Objective Vital Signs & Weight: Vital Signs (12 hours) Temp Pulse Resp BP Pulse Ox 09/14/19 04:59 98.1 F 87 18 99/65 93 L 09/14/19 01:23 86 16 92 L 09/14/19 00:01 97.8 F 72 18 93/56 L 92 L 09/13/19 20:24 98.0 F 79 18 105/55 L 96 09/13/19 20:00 97 09/13/19 19:39 86 16 95 Weight Weight 60.691 kg I&O: 09/12/19 09/13/19 09/14/19 06:59 06:59 06:59 Intake Total 240 1650 Output Total 500 1850 Balance -260 -200 Result Diagrams: 09/11/19 15:12 09/13/19 04:16 Phys Exam - Physical Examination Constitutional: NAD HEENT: moist MMs Neck: full ROM Respiratory: no wheezing, no rales, no rhonchi Cardiovascular: RRR, no significant murmur Gastrointestinal: soft, non-tender Musculoskeletal: no edema, pulses present Neurological: moves all 4 limbs Psychiatric: normal affect, A&O x 3 Skin: cap refill <2 seconds Deviation from normal: Erythema of LLL has essential resolved, no longer TTP Dx/Plan (1) Cellulitis Code(s): L03.90 - CELLULITIS, UNSPECIFIED Status: Acute Qualifiers: Site of cellulitis: extremity Site of cellulitis of extremity: lower extremity Laterality: left Qualified Code(s): L03.116 - Cellulitis of left lower limb (2) Hypokalemia Code(s): E87.6 - HYPOKALEMIA Status: Acute (3) COPD (chronic obstructive pulmonary disease) Status: Chronic Qualifiers: COPD type: unspecified COPD Qualified Code(s): J44.9 - Chronic obstructive pulmonary disease, unspecified (4) HTN (hypertension) Code(s): I10 - ESSENTIAL (PRIMARY) HYPERTENSION Status: Chronic Qualifiers: Hypertension type: unspecified Qualified Code(s): I10 - Essential (primary ) hypertension - Plan Plan: Recurrent Falls/Deconditioning -Rehab screen recommends DC to rehab center -Awaiting approval by insurance for inpt rehab, if not likely will pursue SNF LLE Cellulitis -rapidly improving, resolved on exam -Bactrim, continue outpt for full 10 day treatment -LE doppler negative for DVT Hypokalemia - resolved -2/2 missed potassium doses at home, currently resolved Prediabetes -Monitor, CC diet PUD, HTN, HLD, COPD -Cont home rx OA -Tylenol prn pain Dispo: Inpt medical. PT/OT, awaiting post-discharge placement and approval, continued abx and wound monitoring PCP: Dr. Castillo Addendum - Attending - Attending Attestation Date/Time: 09/14/191935 I personally evaluated the patient and discussed the management with I agree with the History, Examination, Assessment and Plan documented above with any addition or exceptions noted below. Cellulitis resolving patient stable for dismissal APS on case will look into rehab if insurance cannot confirm coverage today d/c home pending acceptance. Patient will benefit from rehab and she is well motivated.
[2019-09-14] MEDS: Mometasone/Formoterol 120 PUFF INHALER INH SCH ×2 (07:38→18:20)
[2019-09-14] MEDS: Enoxaparin Sodium 40 MG/0.4 ML SYRINGE SC SCH (08:23)
[2019-09-14] MEDS: Folic Acid 1 MG TAB PO SCH (08:24)
[2019-09-14] MEDS: Isosorbide Mononitrate (ER) 30 MG TAB PO SCH ×2 (08:24→21:08)
[2019-09-14] MEDS: Potassium Chloride 20 MEQ TAB PO SCH ×2 (08:24→17:01)
[2019-09-14] MEDS: Gabapentin 300 MG CAP PO SCH ×3 (08:24→21:08)
[2019-09-14] MEDS: Furosemide 40 MG TAB PO SCH (08:24)
[2019-09-14] MEDS: DULoxetine 60 MG CAP PO SCH (08:24)
[2019-09-14] MEDS: Rosuvastatin 20 MG TAB PO SCH (08:24)
[2019-09-14] MEDS: Doxepin HCl 25 MG CAP PO SCH ×2 (09:04→21:08)
[2019-09-14] MEDS: Acetaminophen 325 MG TAB PO PRN (17:01)
[2019-09-14] MEDS ORDERED: Nicotine 21 MG PATCH TD SCH (21:00)
[2019-09-14] MEDS: Loratadine 10 MG TAB PO SCH (21:08)
[2019-09-15] MEDS: Ipratropium Bromide 2.5 ml Neb NEB SCH ×3 (00:20→13:07)
[2019-09-15] MEDS: Acetaminophen 325 MG TAB PO PRN (02:25)
[2019-09-15] MEDS: Sulfameth/Trimethoprim DS 800-160mg TAB PO SCH ×2 (05:32→16:20)
--- NOTE | 2019-09-15 06:06 | PDOC.FM ---
- Subjective Subjective: Continues to do well. Denies any complaints this morning. Spoke w/ APS yesterday who will be performing a home visit upon patient's discharge. Pt agreeable to home w/ outpt SNF placement if not approved for inpt rehab. Notes resolution of her left ankle cellulitis w/ residual left ankle tenderness from her fall. - Objective Vital Signs & Weight: Vital Signs (12 hours) Temp Pulse Resp BP BP BP BP 09/15/19 05:33 97.8 F 89 20 129/79 98/61 111/70 09/15/19 00:20 79 12 09/14/19 20:56 98.1 F 79 18 100/64 09/14/19 20:00 09/14/19 18:11 86 16 Pulse Ox 09/15/19 05:33 94 L 09/15/19 00:20 92 L 09/14/19 20:56 92 L 09/14/19 20:00 92 L 09/14/19 18:11 94 L Weight Weight 60.691 kg I&O: 09/13/19 09/14/19 09/15/19 06:59 06:59 06:59 Intake Total 1650 1200 Output Total 1850 Balance -200 1200 Result Diagrams: 09/11/19 15:12 09/13/19 04:16 Phys Exam - Physical Examination Constitutional: NAD HEENT: moist MMs, sclera anicteric Neck: no JVD, full ROM Respiratory: no wheezing, no rales, no rhonchi, clear to auscultation bilateral Cardiovascular: RRR, no significant murmur Gastrointestinal: soft, non-tender Musculoskeletal: no edema, pulses present Neurological: non-focal, moves all 4 limbs Slightly painful ROM of left ankle, no deformity Psychiatric: normal affect, A&O x 3 Skin: no rash, cap refill <2 seconds Deviation from normal: resolution of left lower extremity erythema Dx/Plan (1) Cellulitis Code(s): L03.90 - CELLULITIS, UNSPECIFIED Status: Acute Qualifiers: Site of cellulitis: extremity Site of cellulitis of extremity: lower extremity Laterality: left Qualified Code(s): L03.116 - Cellulitis of left lower limb (2) Hypokalemia Code(s): E87.6 - HYPOKALEMIA Status: Acute (3) COPD (chronic obstructive pulmonary disease) Status: Chronic Qualifiers: COPD type: unspecified COPD Qualified Code(s): J44.9 - Chronic obstructive pulmonary disease, unspecified (4) HTN (hypertension) Code(s): I10 - ESSENTIAL (PRIMARY) HYPERTENSION Status: Chronic Qualifiers: Hypertension type: unspecified Qualified Code(s): I10 - Essential (primary ) hypertension - Plan Plan: Recurrent Falls/Deconditioning -Rehab screen recommends DC to rehab center -Awaiting approval by insurance for inpt rehab, if not approved plan to DC home w/ outpt placement to SNF and APS home visit LLE Cellulitis -rapidly improving, resolved on exam -Bactrim, continue outpt for full 10 day treatment Hypokalemia - resolved Prediabetes -Monitor, CC diet. Recommend outpt f/u and consider metformin tx if failed lifestyle changes PUD, HTN, HLD, COPD -Cont home rx OA -Tylenol prn pain Dispo: Inpt medical. PT/OT, awaiting post-discharge placement. Inpt rehab vs home today.l PCP: Dr. Castillo Addendum - Attending - Attending Attestation Date/Time: 09/15/19 8019 I personally evaluated the patient and discussed the management with Dr. Gracia I agree with the History, Examination, Assessment and Plan documented above with any addition or exceptions noted below. Patient not approved for inpatient rehab. Will d/c home and arrange SNF outpatient. APS to see patient at home next week and perform assessment at that time.
[2019-09-15] MEDS: Mometasone/Formoterol 120 PUFF INHALER INH SCH (06:26)
[2019-09-15] MEDS: Potassium Chloride 20 MEQ TAB PO SCH ×2 (08:22→16:20)
[2019-09-15] MEDS: Enoxaparin Sodium 40 MG/0.4 ML SYRINGE SC SCH (08:22)
[2019-09-15] MEDS: Rosuvastatin 20 MG TAB PO SCH (08:23)
[2019-09-15] MEDS: Isosorbide Mononitrate (ER) 30 MG TAB PO SCH (08:23)
[2019-09-15] MEDS: Furosemide 40 MG TAB PO SCH (08:23)
[2019-09-15] MEDS: DULoxetine 60 MG CAP PO SCH (08:23)
[2019-09-15] MEDS: Doxepin HCl 25 MG CAP PO SCH (08:23)
[2019-09-15] MEDS: Folic Acid 1 MG TAB PO SCH (08:23)
[2019-09-15] MEDS: Gabapentin 300 MG CAP PO SCH ×2 (08:23→14:49)
[2019-09-15 15:10] VITALS: BP 119/70; TEMP 98.7
--- NOTE | 2019-09-16 06:56 | DIS ---
DATE OF ADMISSION: 09/13/2019 DATE OF DISCHARGE: 09/15/2019 ADMITTING ATTENDING: Javid Mann MD DISCHARGE ATTENDING: Cahva Leon MD RESIDENT: Houston Gracia DO CONSULTS: None. PROCEDURES: None. IMAGING: Hip x-ray; findings: Mild osteoarthritic changes of right hip. Knee x-ray; findings: Degenerative changes seen. No acute fracture or dislocation identified. Ankle x-ray; left ankle mortise and talar dome are intact. Soft tissue swelling about the ankle. No acute fracture, dislocation, or soft tissue gas is evident. Left lower extremity ultrasound; findings: No deep vein thrombosis. PRIMARY DIAGNOSES: Left lower extremity cellulitis, recurrent mechanical falls, physical deconditioning. SECONDARY DIAGNOSES: Chronic obstructive pulmonary disease, hypertension, hyperlipidemia, hypokalemia. DISCHARGE MEDICATIONS: 1. Vitamin D2, 50,000 units q.7 days. 2. Cymbalta 60 mg daily. 3. Fosamax 70 mg q.7 days. 4. Folvite 1 mg daily. 5. Metoprolol succinate 25 mg daily. 6. Tylenol with Codeine #3 one tablet q.8 hours p.r.n. 7. Gabapentin 600 mg t.i.d. 8. Crestor 20 mg at bedtime. 9. Furosemide 40 mg daily. 10. Doxepin 25 mg b.i.d. 11. Advair 1 inhalation b.i.d. 12. Omeprazole 20 mg daily. 13. K-Dur 20 mEq b.i.d. 14. Singulair 10 mg at bedtime. 15. Isosorbide mononitrate extended release 30 mg b.i.d. 16. Bactrim DS 1 tab b.i.d. for 6 days. HISTORY OF PRESENT ILLNESS AND HOSPITAL COURSE: A 69-year-old female presented to the ED following a fall outside her home. The patient states that it was mechanical fall, tripping on uneven ground. She notes numerous recurrent falls in recent history. She complained of hip, knee, and ankle pain, x-rays were all negative for acute bony injury. The patient was found to have erythema and swelling of left lower extremity indicating cellulitis. The patient was evaluated in the ED for inpatient rehab, which was recommended, but required insurance authorization prior to discharge there. The patient was subsequently admitted for workup of her left lower extremity cellulitis and rule out a DVT. Ultrasound of left lower extremity was negative for any thrombosis. The patient received oral antibiotics for her cellulitis, which continually improved throughout her admission. At the time of discharge, her cellulitis had clinically resolved and the patient was instructed to continue her full course of antibiotics for complete resolution. The patient was denied by her insurance for inpatient rehab placement. Physicians were notified that [facility] was contacted by the EMS crew that transferred the patient to the hospital stating that her living conditions at home were suboptimal. [facility] was in contact with the patient and Case Management who conducted an interview with the patient and agreed to evaluate the patient at home with a home visit upon discharge. The patient was subsequently discharged home with plans for [facility] facility placement on an outpatient basis with the patient's preferred location of [facility]. The patient was instructed on return precautions and agreed with plan of care. DISCHARGE INSTRUCTIONS: LOCATION: Home. DIET: Heart healthy, carb conscious. ACTIVITY: As tolerated. FOLLOWUP: PCP, Dr. Castillo within 7 days. Job ID: [id number]
--- NOTE | 2019-09-16 13:35 | EKG ---
Test Reason : Blood Pressure : / mmHG Vent. Rate : 081 BPM Atrial Rate : 081 BPM P-R Int : 112 ms QRS Dur : 074 ms QT Int : 394 ms P-R-T Axes : 049 050 041 degrees QTc Int : 457 ms Sinus rhythm with Premature atrial complexes Otherwise normal ECG When compared with ECG of 26-APR-2019 07:36, Previous ECG has undetermined rhythm, needs review Non-specific change in ST segment in Anterior leads Nonspecific T wave abnormality no longer evident in Inferior leads Nonspecific T wave abnormality no longer evident in Anterolateral leads Confirmed by JARED JEREZ (2) on 09/16/2019 1:35:23 PM Referred By: BAR Confirmed By:JARED JEREZ
== END 2019-09-15 16:25 | disposition home or self-care (01) | DRG 603 ==
LOC: ERS 14:38 → 2SW 19:56 → OBSVTOIN 09-13 05:45 → T4-A 09-13 13:21
PROVIDERS: ADMIT Family Medicine; ATTEND Family Medicine
DX: L03.116 Cellulitis of left lower limb (principal); J44.9 Chronic obstructive pulmonary disease, unspecified; E78.5 Hyperlipidemia, unspecified; E87.6 Hypokalemia; I50.9 Heart failure, unspecified; F17.200 Nicotine dependence, unspecified, uncomplicated; G89.29 Other chronic pain; M54.5 Low back pain; F41.9 Anxiety disorder, unspecified; R29.6 Repeated falls; M19.90 Unspecified osteoarthritis, unspecified site; R73.03 Prediabetes; I11.0 Hypertensive heart disease with heart failure; Z88.1 Allergy status to other antibiotic agents; Z79.899 Other long term (current) drug therapy; Z79.51 Long term (current) use of inhaled steroids; Z87.11 Personal history of peptic ulcer disease
CPT/HCPCS: 36415; 36416; 80048; 83605; 83735; 84100; 85025; 93005; 93010; 94640; 94664; J1650

== ENCOUNTER 2019-11-20 07:04 | Day surgery (SDC) | payer MEDICARE, OTHER ==
[2019-11-19 18:42] VITALS: BMI 24.5
[2019-11-20 08:23] LABS: #Basophils 0.1 thou/uL (0.0-0.2); #Eosinphils 0.2 thou/uL (0.0-0.7); #Lymphocytes 2.5 thou/uL (1.20-3.40); #Neutrophils 6.4 thou/uL (1.40-6.50); %Basophils 0.7 % (0.0-1.0); %Eosinophils 1.7 % (0.0-10.0); %Lymphocytes 24.4 % (21.0-51.0); %Neutrophils 63.2 % (42.0-75.0); Hemoglobin 13.4 g/dL (12.0-16.0); Mean Corpuscular Hemoglobin 31.3 pg (27.0-31.0); Mean Corpuscular Volume 92.2 fL (78.0-98.0); Mean Platelet Volume 6.7 fL (7.4-10.4); Platelet Count 322 thou/uL (130-400); RBC Distribution Width 11.9 % (11.5-14.5); Red Blood Cell (RBC) Count 4.28 mill/uL (4.20-5.40); White Blood Cell (WBC) Count 10.2 thou/uL (4.8-10.8)
[2019-11-20 08:30] LABS: INR-International Normal Ratio 0.9; PTT 31.5 SEC (22.9-36.1); Prothrombin Time 11.9 SEC (12.0-14.7)
[2019-11-20 08:43] LABS: Anion Gap 15 mmol/L (10-20); BUN (Urea Nitrogen) 9 mg/dL (9.8-20.1); Calc. Creatinine Clearance 53 mL/min (70-130); Calcium 8.8 mg/dL (7.8-10.44); Carbon Dioxide 27 mmol/L (23-31); Chloride 102 mmol/L (98-107); Estimated GFR-MDRD 59; Glucose 94 mg/dL (80-115); Potassium 3.2 mmol/L (3.5-5.1); Sodium 141 mmol/L (136-145)
[2019-11-20] MEDS ORDERED: Thrombin 5000 UNITS/5 ML VIAL ONE (11:33)
[2019-11-20] MEDS ORDERED: HYDROmorphone 2 MG/ML VIAL ONE (11:40)
[2019-11-20] MEDS ORDERED: Fentanyl 100 MCG/2 ML VIAL ONE ×2 (11:40→14:33)
[2019-11-20] MEDS ORDERED: Phenylephrine 10 MG/ML VIAL ONE (12:36)
[2019-11-20] MEDS ORDERED: Rocuronium Bromide 10 MG/ML (10ML VIAL) ONE (13:13)
[2019-11-20] MEDS ORDERED: Labetalol HCl 100 MG/20 ML VIAL ONE (13:13)
[2019-11-20] MEDS ORDERED: Lidocaine 1% PF 5 ML VIAL ONE (13:13)
[2019-11-20] MEDS ORDERED: Glycopyrrolate 0.2 MG/ML 5 ML SYRINGE ONE (13:13)
[2019-11-20] MEDS ORDERED: Ondansetron PF 4 MG/2 ML Vial ONE (13:13)
[2019-11-20] MEDS ORDERED: PROPOFOL 200 MG/20 ML VIAL ONE (13:13)
[2019-11-20] MEDS ORDERED: PHENYLEPHRINE-NS 100 MCG/ML 10 ML SYRINGE ONE (13:13)
[2019-11-20] MEDS ORDERED: Dexamethasone 20 MG/5 ML VIAL ONE (13:13)
--- NOTE | 2019-11-20 14:47 | OP ---
DATE OF PROCEDURE: 11/20/2019 ECONOMIC CONSULTANT: Cayetano Fields PA-C PREOPERATIVE INDICATION: Prevent neurological deterioration. 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 PROCEDURES PERFORMED: Anterior cervical diskectomy, intervertebral arthrodesis, placement of intervertebral biomechanical device and anterior cervical plating C6-C7, local morselized autograft, morselized allograft, and operating microscope. PREOPERATIVE MEDICATIONS: Ancef 2 g IV. DRAIN NUMBER: Zero. DRAIN TYPE: None. DESCRIPTION OF PROCEDURE: The patient was brought to the operating room. General endotracheal anesthesia was induced. The patient was carefully positioned on the operating table with her head supported by a donut-shaped headrest. A lateral fluoro radiograph was used to plan our incision. The right side of the neck was sterilely prepped and draped. We opened with a 10 blade knife and we controlled bleeding with bipolar cautery. We dissected sharply to the platysma and we cut this muscle in line with our incision. We continued our dissection medial to the sternocleidomastoid and lateral to the trachea and esophagus. We arrived to the prevertebral space and placed a marker. We took a lateral fluoro radiograph to confirm the levels upon which we were operating. We elevated the longus colli muscles off the anterior surface of C6 and C7, and placed a self-retaining retractor beneath them. Distraction pins were placed at C6 and C7, and we distracted across the intervening interspace. The bone quality was poor. We incised the interspace with a 15 blade knife and removed disk contents using curettes and rongeurs. The operative microscope was brought into the field. Under microscopic magnification using microsurgical techniques, we removed the remainder of the intervertebral disk. We accessed the ventral epidural space with a micro curette. We removed posterior osteophytes and posterior longitudinal ligament across the entire interspace until the dura was well decompressed from one neural foramen all the way to the other. There was a thinning of the dura, where the largest osteophyte was on the right side of the midline. This osteophyte and disk were removed completely. We turned our attention to arthrodesis. The endplates were prepared for grafting using curettes to remove the cartilaginous cap. We measured the height of the interspace to 8 mm with a bone rasp. An 8 mm PEEK intervertebral graft was brought into the field. Osteophytes were removed from the spine during our decompression. We were carefully cleaned of soft tissue attachments, morcellized, and added into demineralized bone matrix to form our fusion substrate. The substrate was packed into the center of our PEEK graft, and the graft was advanced into the interspace under radiographic guidance to the appropriate depth. We then removed our distraction pins and brought a 14 mm plate into the field. We drilled a line pilot holes through the plate into the vertebral bodies at C6 and C7, and we affixed the plate using 14 mm screws. Fixed angle screws were used at C7 and variable angle screws at C6. We engaged the locking mechanism over each of the 4 screws. We irrigated copiously with bacitracin irrigation. Hemostasis was excellent. We closed the wound in anatomical layers, and we applied a sterile dressing. This was a clean case, no contamination. Job ID: [id number]
--- NOTE | 2019-11-20 15:34 | HP ---
CHIEF COMPLAINT: I am here for neck surgery because I am getting worse. HISTORY OF PRESENT ILLNESS: Ms. Zuñiga is a 69-year-old female complaining of neck and arm symptoms. She has had several injections in the past that helped for some time, but things seem to be getting worse now. New MRI suggests progressive disease and was sent back to consider surgery. She complains of neck and radiation of pain in both of her arms. States that it is a little bit worse on the left than the right. The weakness is worse on the right. She says she feels off balance. MEDICAL HISTORY: Hypertension, asthma, osteoporosis, chronic back pain, emphysema, peptic ulcer disease, glaucoma, cataracts, diabetes, anemia, vitamin D deficiency. SURGICAL HISTORY: x3, total replacement of the right shoulder on , appendectomy, cholecystectomy. HOSPITALIZATIONS: Childbirth, low potassium. FAMILY HISTORY: Father , diagnosed with hypertension and cancer. Mother , stroke. SOCIAL HISTORY: Smoking one pack daily. No alcohol. Denies any illicit drugs. MEDICATIONS: 1. Symbicort. 2. Ergocalciferol. 3. Fluticasone. 4. Tiotropium. 5. Nitroglycerin. 6. ProAir. 7. Gabapentin. 8. Omeprazole. 9. Isosorbide. 10. Metoprolol. 11. Aspirin. 12. Folic acid. 13. Singulair. 14. Doxepin. 15. Metformin. 16. Permethrin. 17. Rosuvastatin. 18. Duloxetine. 19. Potassium. 20. Tylenol with codeine. ALLERGIES: TETRACYCLINE AND ERYTHROMYCIN. REVIEW OF SYSTEMS: CONSTITUTIONAL: Denies fever or chills. ENT: Denies change of vision or hearing. CARDIAC: Denies chest pain, shortness of breath, or diaphoresis. PULMONARY: Denies shortness of breath, cough, or hemoptysis. GI: Denies abdominal pain, nausea, vomiting, diarrhea, or change in stool formation and consistency. : Denies trouble with urination, frequency of urination, or bloody urine. SKIN: Denies skin rash, bruising, bleeding, or skin masses. MUSCULOSKELETAL: As per history of present illness. NEUROLOGIC: As per history of present illness. PSYCHOLOGIC: Denies anxiety, depression, behavior changes, or crying. PHYSICAL EXAMINATION: VITAL SIGNS: Weight 140, height 61 inches. HEENT: Pupils are equal. Extraocular movements are intact. NECK: Soft, supple. No masses are noted. Range of motion is intact and nonpainful. NEUROLOGIC: Awake, alert, and oriented x3. Memory, attention, fund of knowledge normal. Cranial nerves 2 through 12 grossly intact. She likes to hold her neck forward and flex to prevent her from getting arm symptoms. She has weakness on the right triceps and the right finger extenders and the right greater than the left interossei. Her sensory exam suggests there is a mild dermatomal loss in the right hand compared to the left. IMAGING STUDIES: MRI shows a progressive disk disease at C6-7 with a disk touching and compressing the cord as well as stretching the C7 nerve root. X-rays, flexion-extension views do not show instability. There is a C4-5 listhesis that seems to stay in the same relative position in the flexion-extension. 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 PLAN: 1. ACDF at C6-7. 2. Anesthesia clearance. INFORMED CONSENT: We have discussed the indications, risks, benefits, alternatives, and expected results from surgery. The risks discussed included, but were not limited to, bleeding, infection, CSF leak, nerve damage, weakness, swallowing trouble, feeding tube placement, tracheal injury, esophageal injury, vocal cord injury, spinal cord injury, incontinence, paralysis, ventilator dependency, wheelchair dependency, stroke, loss of vision, carotid artery injury, jugular vein injury, hardware misplacement, cardiopulmonary complications of anesthesia, or . Long-term complications discussed included but were not limited to hardware failure and degradation of surrounding disk. The patient states they understand the risk and are willing to proceed. Job ID: [id number] [facility]
== END 2019-11-20 18:08 | disposition home or self-care (01) ==
LOC: SDC 07:04
PROVIDERS: ATTEND Neurological Surgery
PROC: 0RG10A0 Fusion of Cervical Vertebral Joint with Interbody Fusion Device, Anterior Approach, Anterior Column, Open Approach (ICD-10-PCS; principal; 2019-11-20)
PROC: 0RT30ZZ Resection of Cervical Vertebral Disc, Open Approach (ICD-10-PCS; 2019-11-20)
DX: M50.023 Cervical disc disorder at C6-C7 level with myelopathy (principal); I10 Essential (primary) hypertension; E11.9 Type 2 diabetes mellitus without complications; J45.909 Unspecified asthma, uncomplicated; Z79.82 Long term (current) use of aspirin; Z79.84 Long term (current) use of oral hypoglycemic drugs; Z79.899 Other long term (current) drug therapy
CPT/HCPCS: 20930; 20936; 22551; 22853; 76000; 80048; 85025; 85610; 85730; C1713; C1776; J0690; J1100; J1170; J2001; J2370; J2405; J2704; J3010; J3490

== ENCOUNTER 2020-01-07 08:35 | Outpatient (CLI) | payer MEDICARE, OTHER ==
--- NOTE | 2020-01-07 10:10 | RAD ---
CERVICAL SPINE 4 VIEWS: HISTORY: Postop. COMPARISON: Comparison is made to films of 07/13/2019. FINDINGS: Lateral view is suboptimal due to positioning. Postoperative changes are now noted. Anterior plate and screws are now in place transfixing C6-7. There is an interbody implant at the C6-7 level. Post erior alignment is difficult to assess on these studies but appears preserved. Wedging of the C5 cer vical vertebra with loss of C5-6 disk space appears stable. Slight anterolisthesis at C4-5 appears s table. IMPRESSION: Postoperative changes now seen at C6-7. This level is poorly evaluated. POS: AGW
== END 2020-01-07 08:36 | disposition home or self-care (01) ==
LOC: BICRAD 08:35
PROVIDERS: ATTEND Neurological Surgery
DX: M54.12 Radiculopathy, cervical region (principal); M43.12 Spondylolisthesis, cervical region; G95.9 Disease of spinal cord, unspecified; M54.2 Cervicalgia; Z98.890 Other specified postprocedural states
CPT/HCPCS: 72040

== ENCOUNTER 2020-09-27 19:17 | Observation (INO) | payer MEDICARE, OTHER ==
[2020-09-27] MEDS ORDERED: Vancomycin 1 GM/200 ML BAG ONE ×2 (19:47→19:49)
[2020-09-27] MEDS ORDERED: Cefepime 2 GM VIAL ONE (19:49)
[2020-09-27 20:14] LABS: INR-International Normal Ratio 1.1; Prothrombin Time 14.4 sec (12.0-14.7)
[2020-09-27 20:15] LABS: PTT 33.4 sec (22.9-36.1)
[2020-09-27] MEDS ORDERED: Ondansetron ODT 4 MG TAB PO PRN (22:29)
[2020-09-27] MEDS ORDERED: Ondansetron PF 4 MG/2 ML Vial IVP PRN (22:29)
[2020-09-27] MEDS ORDERED: Acetaminophen 325 MG TAB PO PRN (22:29)
[2020-09-27] MEDS ORDERED: Potassium Chloride 20 MEQ TAB PO SCH (23:15)
[2020-09-27 23:41] VITALS: BMI 28.0
[2020-09-28] MEDS ORDERED: FLU VACC QS2020-21(65YR UP)/PF 240 MCG/0.7 ML SYRINGE IM ONE (00:15)
[2020-09-28] MEDS: Lactated Ringer's 1,000 ML IV SCH ×2 (00:21→10:44)
[2020-09-28] MEDS: Potassium Chloride 20 MEQ in Premix Bag 1 BAG IVPB SCH ×2 (00:22→03:04)
[2020-09-28] MEDS ORDERED: Alendronate Sodium 70 mg Tablet PO SCH (01:45)
[2020-09-28] MEDS ORDERED: Albuterol Sulfate 2.5 mg/3 ml Neb NEB PRN (01:49)
[2020-09-28] MEDS ORDERED: Acetaminophen 500 MG TAB PO SCH (05:30)
[2020-09-28 05:49] LABS: #Basophils 0.1 thou/uL (0.0-0.2); #Eosinphils 0.4 thou/uL (0.0-0.7); #Lymphocytes 1.7 thou/uL (1.20-3.40); #Neutrophils 3.9 thou/uL (1.40-6.50); %Basophils 0.9 % (0.0-1.0); %Eosinophils 5.8 % (0.0-10.0); %Lymphocytes 23.5 % (21.0-51.0); %Monocytes 14.1 % (0.0-10.0); %Neutrophils 55.8 % (42.0-75.0); Hemoglobin 8.3 g/dL (12.0-16.0); Mean Corpuscular HGB CONC 29.9 g/dL (32.0-36.0); Mean Corpuscular Hemoglobin 22.4 pg (27.0-31.0); Mean Corpuscular Volume 74.7 fL (78.0-98.0); Mean Platelet Volume 6.9 fL (7.4-10.4); Platelet Count 645 thou/uL (130-400); RBC Distribution Width 16.7 % (11.5-14.5); Red Blood Cell (RBC) Count 3.72 mill/uL (4.20-5.40)
[2020-09-28 06:06] LABS: Amphetamine Not Detected (NotDetected); Barbiturates Screen Not Detected (NotDetected); Benzodiazepine Screen Not Detected (NotDetected); Cocaine Metabolite Screen Not Detected (NotDetected); Medtox Control Line Valid? VALID (VALID); Medtox Reader # READER 1; Methadone Not Detected (NotDetected); Methamphetamine Not Detected (NotDetected); Opiate Screen Not Detected (NotDetected); Oxycodone Screen Detected (NotDetected); Phencyclidine (PCP) Not Detected (NotDetected); THC/Cannabinoid Screen Not Detected (NotDetected); Tricyclic Screen Not Detected (NotDetected)
[2020-09-28 06:07] LABS: Bacteria/HPF None Seen HPF (None Seen); Bilirubin Negative (Negative); Blood, Urine Negative (Negative); Clarity Clear (Clear); Glucose, Urine (Dipstick) Normal (Negative); Ketone, Urine Negative (Negative); Leukocyte Negative Leu/uL (Negative); Nitrite Negative (Negative); Protein, Urine (Dipstick) Negative (Neg-Trace); RBC/HPF 0-3 HPF (0-3); Specific Gravity, Urine 1.008 (1.002-1.036); Squamous Epithelial 0-3 HPF (0-3); Urobilinogen Normal mg/dL (Less than 2); WBC/HPF 0-3 HPF (0-3)
[2020-09-28 06:08] LABS: Urine Culture Reflex No No
[2020-09-28 06:11] LABS: ALT (SGPT) 8 U/L (8-55); AST (SGOT) 14 U/L (5-34); Albumin 2.8 g/dL (3.4-4.8); Alkaline Phosphatase 86 U/L (40-110); Anion Gap 13 mmol/L (10-20); BUN (Urea Nitrogen) 9 mg/dL (9.8-20.1); Bilirubin, Total 0.8 mg/dL (0.2-1.2); Calc. Creatinine Clearance 80 mL/min (70-130); Calcium 7.9 mg/dL (7.8-10.44); Carbon Dioxide 24 mmol/L (23-31); Chloride 109 mmol/L (98-107); Globulin 2.5 g/dL (2.4-3.5); Glucose 73 mg/dL (80-115); Iron 17 ug/dL (50-170); Iron Binding Capacity, Total 354 mcg/dL (265-497); Potassium 3.9 mmol/L (3.5-5.1); Protein, Total 5.3 g/dL (5.8-8.1); Sodium 142 mmol/L (136-145)
[2020-09-28 06:31] LABS: Ferritin 59.94 ng/mL (10-291)
[2020-09-28] MEDS: Mometasone 200 MCG/Formoterol 5 MCG 120 PUFF INHALER INH SCH ×2 (07:39→18:32)
[2020-09-28 08:29] LABS: SARS-CoV-2 PCR by NAA Not Detected (NotDetected)
[2020-09-28] MEDS ORDERED: Cholecalciferol 1,000 UNITS (25 MCG) TAB PO SCH (09:00)
[2020-09-28] MEDS ORDERED: Montelukast Sodium 10 mg Tablet PO SCH (09:00)
[2020-09-28] MEDS ORDERED: Furosemide 40 MG TAB PO SCH (09:00)
[2020-09-28] MEDS ORDERED: Doxepin HCl 25 MG CAP PO SCH (09:00)
[2020-09-28] MEDS ORDERED: Folic Acid 1 MG TAB PO SCH (09:00)
[2020-09-28] MEDS ORDERED: DULoxetine 30 MG CAP PO SCH (09:00)
[2020-09-28] MEDS ORDERED: Potassium Chloride 20 MEQ TAB PO SCH (09:00)
[2020-09-28] MEDS: Heparin 5,000 UNITS/ML VIAL SC SCH ×2 (09:04→15:46)
[2020-09-28] MEDS: Gabapentin 300 MG CAP PO SCH ×2 (09:05→15:46)
[2020-09-28] MEDS ORDERED: VANCOMYCIN 1.25 GM/250 ML BAG 1.25 GM in Premix Bag 1 BAG IVPB SCH (15:00)
[2020-09-28 16:20] VITALS: BP 117/61; TEMP 97.8
[2020-09-28] MEDS ORDERED: Rosuvastatin 20 MG TAB PO SCH (21:00)
[2020-09-28] MEDS ORDERED: Cefepime 2 GM in Sodium Chloride 0.9% 100 ML IVPB SCH (22:00)
== END 2020-09-28 18:44 | disposition home or self-care (01) ==
LOC: ERS 19:17 → SURG A 22:04 → INTOOBSV 22:04
PROVIDERS: ADMIT Family Medicine; ATTEND Family Medicine
DX: M25.561 Pain in right knee (principal); E87.6 Hypokalemia; D50.9 Iron deficiency anemia, unspecified; R53.81 Other malaise; M81.0 Age-related osteoporosis without current pathological fracture; J44.9 Chronic obstructive pulmonary disease, unspecified; I10 Essential (primary) hypertension; E78.5 Hyperlipidemia, unspecified; I48.91 Unspecified atrial fibrillation; K21.9 Gastro-esophageal reflux disease without esophagitis; F17.210 Nicotine dependence, cigarettes, uncomplicated; F41.9 Anxiety disorder, unspecified; Z23 Encounter for immunization; Z79.01 Long term (current) use of anticoagulants; Z79.52 Long term (current) use of systemic steroids; Z79.82 Long term (current) use of aspirin; Z79.83 Long term (current) use of bisphosphonates; Z79.84 Long term (current) use of oral hypoglycemic drugs; Z79.899 Other long term (current) drug therapy; Z88.1 Allergy status to other antibiotic agents; Z96.651 Presence of right artificial knee joint; Z20.822 Contact with and (suspected) exposure to COVID-19
CPT/HCPCS: 73560; 80053; 80306; 81001; 82607; 82728; 82746; 83540; 83550; 83605; 84145; 85025; 85610; 85730; 87040; 87077; 87149 ×2; 90662; 90732; 93971; 94640; 96365; 96367; 97116; 97139 ×3; 99285; G0008; G0009; U0003; U0005; 36415; 87635; 90471; 96372; G0378; J0692; J1644; J3370; J3480

== ENCOUNTER 2021-07-15 15:18 | Inpatient (IN) | payer MEDICARE, OTHER ==
[~2021-07-15 15:18] MED LIST: Iopamidol-370 76% 500 ML 1 ML ONE
[2021-07-15] MEDS ORDERED: Cefepime 2 GM VIAL ONE (15:46)
[2021-07-15 16:03] LABS: #Lymphocytes 0.7 thou/uL (1.20-3.40); #Monocytes 2.2 thou/uL (0.11-0.59); #Neutrophils 13.6 thou/uL (1.40-6.50); %Basophils 0.1 % (0.0-1.0); %Eosinophils 0.1 % (0.0-10.0); %Lymphocytes 4.3 % (21.0-51.0); %Monocytes 13.2 % (0.0-10.0); %Neutrophils 82.4 % (42.0-75.0); Hemoglobin 11.8 g/dL (12.0-16.0); Mean Corpuscular HGB CONC 34.7 g/dL (32.0-36.0); Mean Corpuscular Hemoglobin 34.8 pg (27.0-31.0); Mean Platelet Volume 6.5 fL (7.4-10.4); Platelet Count 255 thou/uL (130-400); RBC Distribution Width 11.5 % (11.5-14.5); Red Blood Cell (RBC) Count 3.39 mill/uL (4.20-5.40); White Blood Cell (WBC) Count 16.5 thou/uL (4.8-10.8)
[2021-07-15] MEDS ORDERED: Vancomycin 1 GM/200 ML BAG ONE (16:10)
[2021-07-15 16:12] LABS: ALT (SGPT) 9 U/L (8-55); AST (SGOT) 18 U/L (5-34); Albumin 2.8 g/dL (3.4-4.8); Alkaline Phosphatase 63 U/L (40-110); Anion Gap 18 mmol/L (10-20); BUN (Urea Nitrogen) 15 mg/dL (9.8-20.1); Bilirubin, Total 0.6 mg/dL (0.2-1.2); CK (CPK) 112 U/L (29-168); Calc. Creatinine Clearance 0 mL/min (70-130); Calcium 7.4 mg/dL (7.8-10.44); Carbon Dioxide 16 mmol/L (23-31); Chloride 100 mmol/L (98-107); Globulin 2.5 g/dL (2.4-3.5); Glucose 73 mg/dL (80-115); Lipase 6 U/L (8-78); Magnesium 1.5 mg/dL (1.6-2.6); Potassium 3.1 mmol/L (3.5-5.1); Protein, Total 5.3 g/dL (5.8-8.1); Sodium 131 mmol/L (136-145)
[2021-07-15 16:33] LABS: CKMB 2.6 ng/mL (0-6.6)
[2021-07-15] MEDS ORDERED: Potassium Chloride 20 MEQ/100 ML PREMIX BAG ONE (16:50)
[2021-07-15] MEDS ORDERED: Magnesium 2 GM/50 ML BAG (IN WATER) ONE (16:50)
[2021-07-15] MEDS ORDERED: Sodium Chloride 0.9% 100 ML ONE (16:51)
[2021-07-15] MEDS ORDERED: Amiodarone 150 MG in Dextrose 5% in Water 100 ML IVPB SCH (17:15)
[2021-07-15 17:41] LABS: Bacteria/HPF 3+ HPF (None Seen); Bilirubin Negative (Negative); Blood, Urine 3+ (Negative); Clarity Extra Turbid (Clear); Glucose, Urine (Dipstick) Normal (Negative); Ketone, Urine 10 mg/dL (Negative); Leukocyte 500 Leu/uL (Negative); Nitrite 1+ (Negative); Protein, Urine (Dipstick) 200 mg/dL (Neg-Trace); Specific Gravity, Urine 1.009 (1.002-1.036); Squamous Epithelial 0-3 HPF (0-3); Urobilinogen Normal mg/dL (Less than 2); WBC/HPF Greater than 50 HPF (0-3)
[2021-07-15] MEDS ORDERED: Norepinephrine 8 MG/0.9% NS 250 ML ONE (17:44)
[2021-07-15] MEDS ORDERED: Sodium Chloride 0.9% 1,000 ML IV SCH (21:00)
[2021-07-15 22:30] LABS: SARS-CoV-2 NAA Rapid Test Not Detected (NotDetected)
[2021-07-15 22:34] LABS: Troponin I 0.111 ng/mL (< 0.028)
[2021-07-16] MEDS: Sodium Chloride 0.9% 1,000 ML IV SCH (00:15)
[2021-07-16] MEDS: Ondansetron PF 4 MG/2 ML Vial IVP PRN (00:29)
[2021-07-16] MEDS: Pantoprazole 40 MG VIAL IVP SCH ×3 (00:29→21:55)
[2021-07-16 00:50] LABS: Hemoglobin 11.1 g/dL (12.0-16.0)
[2021-07-16 01:14] LABS: Troponin I 0.154 ng/mL (< 0.028)
[2021-07-16] MEDS ORDERED: Cefepime 1 GM in Sodium Chloride 0.9% 100 ML IVPB SCH (04:00)
[2021-07-16 04:20] LABS: Anion Gap 15 mmol/L (10-20); BUN (Urea Nitrogen) 13 mg/dL (9.8-20.1); Calc. Creatinine Clearance 46 mL/min (70-130); Calcium 7.2 mg/dL (7.8-10.44); Carbon Dioxide 17 mmol/L (23-31); Chloride 107 mmol/L (98-107); Glucose 83 mg/dL (80-115); Sodium 136 mmol/L (136-145)
[2021-07-16 04:29] LABS: Troponin I 0.191 ng/mL (< 0.028)
[2021-07-16] MEDS ORDERED: Potassium Chloride 40 MEQ in Premix Bag 1 BAG IVPB SCH (05:00)
[2021-07-16 05:02] LABS: Band 9 % (5-11); Hemoglobin 10.1 g/dL (12.0-16.0); Lymphocytes 7 % (21-51); MDiff Complete? YES; Macrocytosis SLIGHT = 6-15 cells (100X) (0-5/hpf); Mean Corpuscular HGB CONC 34.5 g/dL (32.0-36.0); Mean Corpuscular Hemoglobin 34.5 pg (27.0-31.0); Mean Platelet Volume 6.8 fL (7.4-10.4); Monocytes 8 % (0-10); Neutrophil 76 % (42-75); Platelet Count 258 thou/uL (130-400); Platelet Morphology Comment Appears Adequate; RBC Distribution Width 11.6 % (11.5-14.5); Red Blood Cell (RBC) Count 2.93 mill/uL (4.20-5.40)
[2021-07-16] MEDS ORDERED: MEROPENEM 1 GM/50 ML 1 GM in Premix Bag 1 BAG IVPB SCH (10:45)
[2021-07-16] MEDS: Acetaminophen 325 MG TAB PO PRN (15:11)
[2021-07-16] MEDS: MEROPENEM 1 GM/50 ML 1 GM in Premix Bag 1 BAG IVPB SCH ×2 (18:56→23:30)
[2021-07-16] MEDS ORDERED: Diltiazem 125 MG in Sodium Chloride 0.9% 100 ML IVPB SCH (23:15)
[2021-07-16] MEDS ORDERED: Metoprolol Tartrate 25 MG TAB PO SCH (23:30)
[2021-07-17 05:35] LABS: Band 1 % (5-11); Eosinophils 1 % (0-10); Hemoglobin 9.3 g/dL (12.0-16.0); Hypochromia SLIGHT = 6-15 cells (100X) (0-5/hpf); Lymphocytes 22 % (21-51); MDiff Complete? YES; Mean Corpuscular HGB CONC 35.9 g/dL (32.0-36.0); Mean Corpuscular Hemoglobin 35.6 pg (27.0-31.0); Mean Corpuscular Volume 99.4 fL (78.0-98.0); Mean Platelet Volume 7.7 fL (7.4-10.4); Neutrophil 76 % (42-75); Platelet Count 202 thou/uL (130-400); Platelet Morphology Comment Appears Adequate; RBC Distribution Width 11.7 % (11.5-14.5); White Blood Cell (WBC) Count 13.6 thou/uL (4.8-10.8)
[2021-07-17 05:48] LABS: Calcium 6.2 mg/dL (7.8-10.44); Chloride 112 mmol/L (98-107); Sodium 144 mmol/L (136-145)
[2021-07-17 05:49] LABS: Glucose 89 mg/dL (80-115)
[2021-07-17 05:50] LABS: Carbon Dioxide 22 mmol/L (23-31)
[2021-07-17 05:52] LABS: Calc. Creatinine Clearance 72 mL/min (70-130)
[2021-07-17 05:53] LABS: BUN (Urea Nitrogen) 6 mg/dL (9.8-20.1)
[2021-07-17] MEDS: Sodium Chloride 0.9% 1,000 ML IV SCH ×2 (05:53→20:22)
[2021-07-17 05:54] LABS: Magnesium 1.6 mg/dL (1.6-2.6)
[2021-07-17 06:17] LABS: Phosphorus Less than 1.0 mg/dL (2.3-4.7); Potassium 2.7 mmol/L (3.5-5.1)
[2021-07-17 06:19] LABS: Anion Gap 13 mmol/L (10-20)
[2021-07-17] MEDS ORDERED: Magnesium 2 GM/50 ML 2 GM in Premix Bag 1 BAG IVPB SCH (06:45)
[2021-07-17] MEDS ORDERED: Potassium Chloride 20 MEQ TAB PO SCH (06:45)
[2021-07-17] MEDS ORDERED: Potassium Chloride 40 MEQ in Premix Bag 1 BAG IVPB SCH (07:15)
[2021-07-17] MEDS ORDERED: MEROPENEM 1 GM/50 ML 1 GM in Premix Bag 1 BAG IVPB SCH (11:00)
[2021-07-17] MEDS: Pantoprazole 40 MG VIAL IVP SCH ×2 (11:35→21:55)
[2021-07-17] MEDS: MEROPENEM 1 GM/50 ML 1 GM in Premix Bag 1 BAG IVPB SCH (20:31)
[2021-07-17] MEDS: Metoprolol Tartrate 25 MG TAB PO SCH (21:56)
[2021-07-18] MEDS: Acetaminophen 325 MG TAB PO PRN (01:04)
[2021-07-18] MEDS: MEROPENEM 1 GM/50 ML 1 GM in Premix Bag 1 BAG IVPB SCH (03:48)
[2021-07-18 05:24] LABS: #Eosinphils 0.3 thou/uL (0.0-0.7); #Lymphocytes 1.2 thou/uL (1.20-3.40); #Monocytes 1.4 thou/uL (0.11-0.59); #Neutrophils 9.5 thou/uL (1.40-6.50); %Basophils 0.4 % (0.0-1.0); %Eosinophils 2.4 % (0.0-10.0); %Lymphocytes 9.8 % (21.0-51.0); %Neutrophils 76.4 % (42.0-75.0); Hemoglobin 10.7 g/dL (12.0-16.0); Mean Corpuscular HGB CONC 33.3 g/dL (32.0-36.0); Mean Corpuscular Hemoglobin 33.2 pg (27.0-31.0); Mean Corpuscular Volume 99.8 fL (78.0-98.0); Mean Platelet Volume 6.2 fL (7.4-10.4); Platelet Count 315 thou/uL (130-400); RBC Distribution Width 11.9 % (11.5-14.5); Red Blood Cell (RBC) Count 3.22 mill/uL (4.20-5.40); White Blood Cell (WBC) Count 12.5 thou/uL (4.8-10.8)
[2021-07-18 05:45] LABS: Anion Gap 10 mmol/L (10-20); BUN (Urea Nitrogen) 4 mg/dL (9.8-20.1); Calc. Creatinine Clearance 75 mL/min (70-130); Calcium 6.8 mg/dL (7.8-10.44); Carbon Dioxide 20 mmol/L (23-31); Chloride 114 mmol/L (98-107); Glucose 87 mg/dL (80-115); Magnesium 1.8 mg/dL (1.6-2.6); Potassium 3.7 mmol/L (3.5-5.1); Sodium 140 mmol/L (136-145)
[2021-07-18 06:30] VITALS: BMI 27.8
[2021-07-18] MEDS: Sodium Chloride 0.9% 1,000 ML IV SCH ×2 (09:52→21:57)
[2021-07-18] MEDS: cefTRIAXone\\ROCEPHIN 1 GM in Sodium Chloride 0.9% 100 ML IVPB SCH (09:52)
[2021-07-18] MEDS: Metoprolol Tartrate 25 MG TAB PO SCH ×2 (09:53→21:14)
[2021-07-18] MEDS: Pantoprazole 40 MG VIAL IVP SCH ×2 (09:53→21:14)
[2021-07-18] MEDS: Cholestyramine/Aspartame 4 gm Packet PO SCH (21:57)
[2021-07-19 05:01] LABS: #Eosinphils 0.3 thou/uL (0.0-0.7); #Lymphocytes 1.6 thou/uL (1.20-3.40); #Monocytes 1.3 thou/uL (0.11-0.59); #Neutrophils 10.1 thou/uL (1.40-6.50); %Basophils 0.2 % (0.0-1.0); %Eosinophils 2.1 % (0.0-10.0); %Lymphocytes 11.9 % (21.0-51.0); %Monocytes 10.1 % (0.0-10.0); %Neutrophils 75.7 % (42.0-75.0); Hemoglobin 10.8 g/dL (12.0-16.0); Mean Corpuscular HGB CONC 33.3 g/dL (32.0-36.0); Mean Corpuscular Volume 99.2 fL (78.0-98.0); Mean Platelet Volume 6.5 fL (7.4-10.4); Platelet Count 399 thou/uL (130-400); RBC Distribution Width 11.9 % (11.5-14.5); Red Blood Cell (RBC) Count 3.28 mill/uL (4.20-5.40); White Blood Cell (WBC) Count 13.4 thou/uL (4.8-10.8)
[2021-07-19 05:25] LABS: Anion Gap 12 mmol/L (10-20); BUN (Urea Nitrogen) Less than 4 mg/dL (9.8-20.1); Calc. Creatinine Clearance 82 mL/min (70-130); Calcium 6.6 mg/dL (7.8-10.44); Carbon Dioxide 20 mmol/L (23-31); Chloride 109 mmol/L (98-107); Glucose 88 mg/dL (80-115); Sodium 138 mmol/L (136-145)
[2021-07-19 05:36] LABS: Potassium 2.9 mmol/L (3.5-5.1)
[2021-07-19] MEDS ORDERED: Electrolyte Replacement Protocol 1 EACH FS SCH (06:00)
[2021-07-19] MEDS: Potassium Chloride 20 MEQ TAB PO SCH ×2 (06:10→09:24)
[2021-07-19] MEDS ORDERED: Magnesium 2 GM/50 ML 2 GM in Premix Bag 1 BAG IVPB SCH (07:00)
[2021-07-19] MEDS: Cholestyramine/Aspartame 4 gm Packet PO SCH ×2 (09:24→21:49)
[2021-07-19] MEDS: cefTRIAXone\\ROCEPHIN 1 GM in Sodium Chloride 0.9% 100 ML IVPB SCH (09:24)
[2021-07-19] MEDS: Metoprolol Tartrate 25 MG TAB PO SCH ×2 (09:24→21:25)
[2021-07-19] MEDS: Sodium Chloride 0.9% 1,000 ML IV SCH (09:24)
[2021-07-19] MEDS: Pantoprazole 40 MG VIAL IVP SCH ×2 (12:42→21:49)
[2021-07-19] MEDS ORDERED: Potassium Chloride 20 MEQ TAB PO SCH (15:00)
[2021-07-19] MEDS ORDERED: Furosemide 20 MG/2 ML VIAL SLOW IVP SCH (23:45)
[2021-07-20] MEDS: Sodium Chloride 0.9% 1,000 ML IV SCH (00:11)
[2021-07-20] MEDS: Ondansetron PF 4 MG/2 ML Vial IVP PRN (00:15)
[2021-07-20] MEDS: Acetaminophen 325 MG TAB PO PRN (02:15)
[2021-07-20] MEDS ORDERED: Melatonin 3 MG TAB PO SCH (02:45)
[2021-07-20 03:23] LABS: Anion Gap 13 mmol/L (10-20); BUN (Urea Nitrogen) Less than 4 mg/dL (9.8-20.1); Calc. Creatinine Clearance 80 mL/min (70-130); Calcium 6.4 mg/dL (7.8-10.44); Carbon Dioxide 19 mmol/L (23-31); Chloride 106 mmol/L (98-107); Glucose 104 mg/dL (80-115); Potassium 3.6 mmol/L (3.5-5.1); Sodium 134 mmol/L (136-145)
[2021-07-20 03:24] LABS: Magnesium 1.4 mg/dL (1.6-2.6)
[2021-07-20 04:53] LABS: Band 10 % (5-11); Eosinophils 1 % (0-10); Hemoglobin 11.4 g/dL (12.0-16.0); Lymphocytes 4 % (21-51); MDiff Complete? YES; Mean Corpuscular Hemoglobin 34.3 pg (27.0-31.0); Mean Corpuscular Volume 97.9 fL (78.0-98.0); Mean Platelet Volume 6.4 fL (7.4-10.4); Monocytes 4 % (0-10); Neutrophil 80 % (42-75); Platelet Count 419 thou/uL (130-400); Platelet Morphology Comment Appears Increased; RBC Distribution Width 11.9 % (11.5-14.5); RBC Morphology Normal; Reactive Lymphocytes 1 % (0-10); Red Blood Cell (RBC) Count 3.33 mill/uL (4.20-5.40); Toxic Granulation SLIGHT
[2021-07-20] MEDS: Magnesium 2 GM/50 ML 2 GM in Premix Bag 1 BAG IVPB SCH ×2 (05:46→09:01)
[2021-07-20] MEDS ORDERED: Magnesium 2 GM/50 ML 2 GM in Premix Bag 1 BAG IVPB SCH (08:45)
[2021-07-20] MEDS: Pantoprazole 40 MG VIAL IVP SCH (09:02)
[2021-07-20] MEDS: Cholestyramine/Aspartame 4 gm Packet PO SCH ×2 (09:02→22:26)
[2021-07-20] MEDS: DULoxetine 60 MG CAP PO SCH (09:03)
[2021-07-20] MEDS: Montelukast Sodium 10 mg Tablet PO SCH (09:03)
[2021-07-20] MEDS: Doxepin HCl 25 MG CAP PO SCH (09:03)
[2021-07-20] MEDS: Gabapentin 300 MG CAP PO SCH ×3 (09:03→22:26)
[2021-07-20] MEDS: Cholecalciferol (Vitamin D3) 400 UNITS TAB PO SCH (09:03)
[2021-07-20] MEDS: Aspirin 81 mg Enteric Coated Tablet PO SCH (09:03)
[2021-07-20] MEDS: Folic Acid 1 MG TAB PO SCH (09:03)
[2021-07-20] MEDS: Apixaban 5 MG TAB PO SCH ×2 (09:03→22:26)
[2021-07-20] MEDS: cefTRIAXone\\ROCEPHIN 1 GM in Sodium Chloride 0.9% 100 ML IVPB SCH (09:09)
[2021-07-20] MEDS: metroNIDAZOLE 500 MG TAB PO SCH ×2 (15:22→22:27)
[2021-07-20] MEDS ORDERED: metroNIDAZOLE 500 MG in Premix Bag 1 BAG IVPB SCH (22:00)
[2021-07-21 05:28] LABS: Anion Gap 10 mmol/L (10-20); BUN (Urea Nitrogen) Less than 4 mg/dL (9.8-20.1); Calc. Creatinine Clearance 80 mL/min (70-130); Carbon Dioxide 24 mmol/L (23-31); Chloride 110 mmol/L (98-107); Glucose 81 mg/dL (80-115); Magnesium 1.9 mg/dL (1.6-2.6); Potassium 3.5 mmol/L (3.5-5.1); Sodium 140 mmol/L (136-145)
[2021-07-21 05:38] LABS: Calcium 5.9 mg/dL (7.8-10.44)
[2021-07-21] MEDS ORDERED: Magnesium 2 GM/50 ML 2 GM in Premix Bag 1 BAG IVPB SCH (06:00)
[2021-07-21] MEDS ORDERED: Calcium Gluc 4.6 MEQ/10 ML (100 MG/ML) SLOW IVP SCH (06:00)
[2021-07-21] MEDS ORDERED: Magnesium Sulfate 4 GM in Sodium Chloride 0.9% 250 ML 250 ML IVPB SCH (06:00)
[2021-07-21] MEDS ORDERED: Potassium Chloride 20 MEQ TAB PO SCH ×2 (06:00→06:30)
[2021-07-21] MEDS: Acetaminophen 325 MG TAB PO PRN (07:23)
[2021-07-21 07:59] LABS: #Basophils 0.1 thou/uL (0.0-0.2); #Eosinphils 0.5 thou/uL (0.0-0.7); #Lymphocytes 1.9 thou/uL (1.20-3.40); #Monocytes 1.4 thou/uL (0.11-0.59); #Neutrophils 6.9 thou/uL (1.40-6.50); %Basophils 0.5 % (0.0-1.0); %Eosinophils 4.6 % (0.0-10.0); %Lymphocytes 17.8 % (21.0-51.0); %Monocytes 13.1 % (0.0-10.0); Hemoglobin 9.9 g/dL (12.0-16.0); Mean Corpuscular HGB CONC 33.9 g/dL (32.0-36.0); Mean Corpuscular Hemoglobin 33.8 pg (27.0-31.0); Mean Corpuscular Volume 99.7 fL (78.0-98.0); Platelet Count 529 thou/uL (130-400); RBC Distribution Width 12.1 % (11.5-14.5); Red Blood Cell (RBC) Count 2.94 mill/uL (4.20-5.40); White Blood Cell (WBC) Count 10.8 thou/uL (4.8-10.8)
[2021-07-21] MEDS: Apixaban 5 MG TAB PO SCH (09:40)
[2021-07-21] MEDS: metroNIDAZOLE 500 MG TAB PO SCH ×2 (09:40→15:53)
[2021-07-21] MEDS: Doxepin HCl 25 MG CAP PO SCH (09:40)
[2021-07-21] MEDS: Montelukast Sodium 10 mg Tablet PO SCH (09:40)
[2021-07-21] MEDS: Aspirin 81 mg Enteric Coated Tablet PO SCH (09:40)
[2021-07-21] MEDS: Cholecalciferol (Vitamin D3) 400 UNITS TAB PO SCH (09:40)
[2021-07-21] MEDS: Gabapentin 300 MG CAP PO SCH ×2 (09:40→15:53)
[2021-07-21] MEDS: Folic Acid 1 MG TAB PO SCH (09:40)
[2021-07-21] MEDS: DULoxetine 60 MG CAP PO SCH (09:40)
[2021-07-21] MEDS: cefTRIAXone\\ROCEPHIN 1 GM in Sodium Chloride 0.9% 100 ML IVPB SCH (09:45)
[2021-07-21] MEDS: Cholestyramine/Aspartame 4 gm Packet PO SCH (09:45)
[2021-07-21 16:19] VITALS: BP 91/51; TEMP 98.7
[2021-07-21] MEDS ORDERED: Ciprofloxacin 500 MG TAB PO SCH (20:00)
== END 2021-07-21 16:43 | DRG 871 ==
LOC: ERS 15:18 → CCU 20:25 → 2NO 07-16 17:40
PROVIDERS: ADMIT Internal Medicine; ATTEND Internal Medicine
PROC: 02HV33Z Insertion of Infusion Device into Superior Vena Cava, Percutaneous Approach (ICD-10-PCS; principal; 2021-07-15)
DX: A41.51 Sepsis due to Escherichia coli [E. coli] (principal); R65.21 Severe sepsis with septic shock; I50.32 Chronic diastolic (congestive) heart failure; K92.1 Melena; Z20.822 Contact with and (suspected) exposure to COVID-19; N12 Tubulo-interstitial nephritis, not specified as acute or chronic; A04.5 Campylobacter enteritis; I48.91 Unspecified atrial fibrillation; F41.9 Anxiety disorder, unspecified; F17.210 Nicotine dependence, cigarettes, uncomplicated; I25.10 Atherosclerotic heart disease of native coronary artery without angina pectoris; G62.9 Polyneuropathy, unspecified; Z96.611 Presence of right artificial shoulder joint; Z96.651 Presence of right artificial knee joint; E83.42 Hypomagnesemia; E87.6 Hypokalemia; G89.29 Other chronic pain; M81.0 Age-related osteoporosis without current pathological fracture; E78.5 Hyperlipidemia, unspecified; E78.00 Pure hypercholesterolemia, unspecified; I11.0 Hypertensive heart disease with heart failure; J44.9 Chronic obstructive pulmonary disease, unspecified; D64.9 Anemia, unspecified; R73.03 Prediabetes; R79.89 Other specified abnormal findings of blood chemistry; Z90.49 Acquired absence of other specified parts of digestive tract; Z88.1 Allergy status to other antibiotic agents; Z88.8 Allergy status to other drugs, medicaments and biological substances; Z79.01 Long term (current) use of anticoagulants; Z79.82 Long term (current) use of aspirin; Z79.51 Long term (current) use of inhaled steroids; Z79.899 Other long term (current) drug therapy; Z87.11 Personal history of peptic ulcer disease; Z82.49 Family history of ischemic heart disease and other diseases of the circulatory system; Z83.3 Family history of diabetes mellitus
CPT/HCPCS: 36415; 71045; 74177; 80048; 80053; 81003; 81015; 82274; 82550; 82553; 83605; 83690; 83735; 83880; 84100; 84443; 84484; 85025; 85379; 87040; 87045; 87046; 87077; 87086; 87149; 87186; 87427; 87449; 93005; 93010; 94640; C9113; J0282; J0610; J0692; J0696; J1940; J2185; J2405; J3370; J3475; J3480; J3490; J7050; J7070; J7620; Q9967; U0002

== ENCOUNTER 2021-09-05 03:30 | Inpatient (IN) | payer OTHER ==
[2021-09-05 04:17] LABS: #Monocytes 1.3 thou/uL (0.11-0.59); #Neutrophils 7.8 thou/uL (1.40-6.50); %Basophils 0.2 % (0.0-1.0); %Eosinophils 0.3 % (0.0-10.0); %Lymphocytes 9.9 % (21.0-51.0); %Monocytes 12.3 % (0.0-10.0); %Neutrophils 77.3 % (42.0-75.0); Hemoglobin 13.5 g/dL (12.0-16.0); Mean Corpuscular HGB CONC 33.4 g/dL (32.0-36.0); Mean Corpuscular Hemoglobin 33.4 pg (27.0-31.0); Mean Platelet Volume 6.7 fL (7.4-10.4); Platelet Count 370 thou/uL (130-400); RBC Distribution Width 12.5 % (11.5-14.5); Red Blood Cell (RBC) Count 4.04 mill/uL (4.20-5.40); White Blood Cell (WBC) Count 10.1 thou/uL (4.8-10.8)
[2021-09-05] MEDS ORDERED: Ondansetron PF 4 MG/2 ML Vial ONE (04:21)
[2021-09-05] MEDS ORDERED: Morphine 4 MG/ML VIAL ONE (04:21)
[2021-09-05 04:48] LABS: ALT (SGPT) 12 U/L (8-55); AST (SGOT) 34 U/L (5-34); Albumin 3.4 g/dL (3.4-4.8); Alkaline Phosphatase 80 U/L (40-110); Anion Gap 22 mmol/L (10-20); BUN (Urea Nitrogen) 11 mg/dL (9.8-20.1); Bilirubin, Total 0.3 mg/dL (0.2-1.2); Calc. Creatinine Clearance 0 mL/min (70-130); Calcium 7.8 mg/dL (7.8-10.44); Carbon Dioxide 18 mmol/L (23-31); Chloride 99 mmol/L (98-107); Glucose 130 mg/dL (80-115); Lipase 6 U/L (8-78); Protein, Total 6.4 g/dL (5.8-8.1); Sodium 135 mmol/L (136-145)
[2021-09-05 05:55] LABS: Bilirubin Negative (Negative); Blood, Urine Moderate (Negative); Glucose, Urine (Dipstick) Negative (Negative); Ketone, Urine > or equal to 80 mg/dL (Negative); Leukocyte Negative (Negative); Nitrite Negative (Negative); Protein, Urine (Dipstick) 30 mg/dL (Neg-Trace); Urobilinogen 0.2 mg/dL (Less than 2)
[2021-09-05 05:56] LABS: Clarity Clear (Clear)
[2021-09-05] MEDS ORDERED: Lisinopril 10 MG TAB ONE (06:17)
[2021-09-05] MEDS ORDERED: Metoprolol Tartrate 25 MG TAB ONE (06:17)
[2021-09-05 06:29] LABS: Other Microscopic Description Less than 2 mL rec'd; RBC/HPF 0-3 HPF (0-3); Squamous Epithelial 0-3 HPF (0-3); WBC/HPF 0-3 HPF (0-3)
[2021-09-05] MEDS ORDERED: Piperacillin/Tazobactam 4.5 GM in Sodium Chloride 0.9% 100 ML IVPB SCH (10:00)
[2021-09-05] MEDS ORDERED: Piperacillin/Tazobactam 4.5 GM VIAL ONE (10:06)
[2021-09-05] MEDS ORDERED: Piperacillin/Tazobactam 3.375 GM in Sodium Chloride 0.9% 100 ML IVPB SCH (12:00)
[2021-09-05 12:53] LABS: SARS-CoV-2 NAA Rapid Test DETECTED (NotDetected)
[2021-09-05] MEDS ORDERED: Piperacillin/Tazobactam 3.375 GM VIAL ONE (16:12)
[2021-09-05] MEDS: Lactated Ringer's 1,000 ML IV SCH ×2 (16:36→23:24)
[2021-09-05] MEDS: Piperacillin/Tazobactam 3.375 GM in Sodium Chloride 0.9% 100 ML IVPB SCH (16:59)
[2021-09-05] MEDS ORDERED: Ondansetron ODT 4 MG TAB ONE (17:01)
[2021-09-05] MEDS: Ondansetron ODT 4 MG TAB PO PRN (17:02)
[2021-09-05] MEDS: Metoprolol Tartrate 25 MG TAB PO SCH ×2 (21:57→22:07)
[2021-09-05] MEDS: Apixaban 5 MG TAB PO SCH (22:07)
[2021-09-06] MEDS: Acetaminophen 325 MG TAB PO PRN ×2 (00:50→20:37)
[2021-09-06] MEDS: Piperacillin/Tazobactam 3.375 GM in Sodium Chloride 0.9% 100 ML IVPB SCH ×3 (00:50→21:42)
[2021-09-06 05:45] LABS: Hemoglobin 10.9 g/dL (12.0-16.0); Mean Corpuscular Hemoglobin 33.8 pg (27.0-31.0); Mean Corpuscular Volume 99.4 fL (78.0-98.0); Mean Platelet Volume 6.3 fL (7.4-10.4); Platelet Count 305 thou/uL (130-400); RBC Distribution Width 12.4 % (11.5-14.5); Red Blood Cell (RBC) Count 3.21 mill/uL (4.20-5.40); White Blood Cell (WBC) Count 6.1 thou/uL (4.8-10.8)
[2021-09-06 06:09] LABS: Anion Gap 15 mmol/L (10-20); BUN (Urea Nitrogen) 4 mg/dL (9.8-20.1); Calc. Creatinine Clearance 58 mL/min (70-130); Calcium 6.6 mg/dL (7.8-10.44); Carbon Dioxide 20 mmol/L (23-31); Chloride 106 mmol/L (98-107); Glucose 62 mg/dL (80-115); Potassium 2.6 mmol/L (3.5-5.1); Sodium 138 mmol/L (136-145)
[2021-09-06] MEDS: Potassium Chloride 10 MEQ in Premix Bag 1 BAG IVPB SCH ×7 (07:09→20:37)
[2021-09-06 08:02] LABS: Band 21 % (5-11); Eosinophils 1 % (0-10); Lymphocytes 15 % (21-51); MDiff Complete? YES; Monocytes 16 % (0-10); Neutrophil 47 % (42-75); Platelet Morphology Comment Appears Adequate; Polychromasia SLIGHT = 2-3 cells (100X) (0-2/hpf)
[2021-09-06] MEDS: predniSONE 5 MG TAB PO SCH (08:59)
[2021-09-06] MEDS: Metoprolol Tartrate 25 MG TAB PO SCH ×3 (08:59→20:37)
[2021-09-06] MEDS: Apixaban 5 MG TAB PO SCH ×2 (08:59→20:37)
[2021-09-06] MEDS ORDERED: FLU VACC QS2021-22(65YR UP)/PF 240 MCG/0.7 ML SYRINGE IM ONE (09:00)
[2021-09-06] MEDS: Lactated Ringer's 1,000 ML IV SCH (09:32)
[2021-09-06 14:30] LABS: Anion Gap 13 mmol/L (10-20); BUN (Urea Nitrogen) Less than 4 mg/dL (9.8-20.1); Calc. Creatinine Clearance 58 mL/min (70-130); Calcium 6.5 mg/dL (7.8-10.44); Carbon Dioxide 22 mmol/L (23-31); Chloride 104 mmol/L (98-107); Glucose 113 mg/dL (80-115); Sodium 136 mmol/L (136-145)
[2021-09-06 14:42] LABS: Potassium 2.9 mmol/L (3.5-5.1)
[2021-09-06] MEDS ORDERED: Potassium Chloride 20 MEQ TAB PO SCH (15:15)
[2021-09-07] MEDS: Potassium Chloride 10 MEQ in Premix Bag 1 BAG IVPB SCH (01:02)
[2021-09-07] MEDS: Benzonatate 100 MG CAP PO PRN ×2 (01:44→06:06)
[2021-09-07] MEDS: Piperacillin/Tazobactam 3.375 GM in Sodium Chloride 0.9% 100 ML IVPB SCH ×2 (05:29→13:16)
[2021-09-07 06:02] LABS: Band 15 % (5-11); Eosinophils 1 % (0-10); Hemoglobin 11.3 g/dL (12.0-16.0); Lymphocytes 16 % (21-51); MDiff Complete? YES; Mean Corpuscular HGB CONC 33.8 g/dL (32.0-36.0); Mean Corpuscular Hemoglobin 33.9 pg (27.0-31.0); Mean Platelet Volume 6.3 fL (7.4-10.4); Monocytes 18 % (0-10); Neutrophil 50 % (42-75); Platelet Count 293 thou/uL (130-400); Platelet Morphology Comment Appears Adequate; RBC Distribution Width 12.7 % (11.5-14.5); Red Blood Cell (RBC) Count 3.34 mill/uL (4.20-5.40); White Blood Cell (WBC) Count 6.5 thou/uL (4.8-10.8)
[2021-09-07 06:28] LABS: Anion Gap 11 mmol/L (10-20); BUN (Urea Nitrogen) Less than 4 mg/dL (9.8-20.1); Calc. Creatinine Clearance 66 mL/min (70-130); Calcium 6.7 mg/dL (7.8-10.44); Carbon Dioxide 24 mmol/L (23-31); Chloride 109 mmol/L (98-107); Glucose 67 mg/dL (80-115); Potassium 3.7 mmol/L (3.5-5.1); Sodium 140 mmol/L (136-145)
[2021-09-07] MEDS: Potassium Chloride 20 MEQ TAB PO SCH (08:47)
[2021-09-07] MEDS: Apixaban 5 MG TAB PO SCH ×2 (08:48→20:12)
[2021-09-07] MEDS: Metoprolol Tartrate 25 MG TAB PO SCH ×2 (08:48→20:12)
[2021-09-07] MEDS: predniSONE 5 MG TAB PO SCH (08:48)
[2021-09-07] MEDS: Ondansetron PF 4 MG/2 ML Vial IVP PRN (16:32)
[2021-09-07] MEDS: Lactated Ringer's 1,000 ML IV SCH (17:42)
[2021-09-07] MEDS: Vancomycin 25 MG/ML Oral SOLN PO SCH ×2 (18:02→22:18)
[2021-09-07] MEDS: Ondansetron ODT 4 MG TAB PO PRN (22:18)
[2021-09-08] MEDS: Ondansetron ODT 4 MG TAB PO PRN ×2 (05:30→20:14)
[2021-09-08] MEDS: Vancomycin 25 MG/ML Oral SOLN PO SCH ×4 (05:30→23:38)
[2021-09-08 05:36] LABS: Anion Gap 15 mmol/L (10-20); BUN (Urea Nitrogen) Less than 4 mg/dL (9.8-20.1); Calc. Creatinine Clearance 70 mL/min (70-130); Calcium 6.3 mg/dL (7.8-10.44); Carbon Dioxide 22 mmol/L (23-31); Chloride 102 mmol/L (98-107); Glucose 68 mg/dL (80-115); Potassium 3.2 mmol/L (3.5-5.1); Sodium 136 mmol/L (136-145)
[2021-09-08 05:37] LABS: Band 6 % (5-11); Eosinophils 2 % (0-10); Hemoglobin 11.7 g/dL (12.0-16.0); Lymphocytes 19 % (21-51); MDiff Complete? YES; Mean Corpuscular HGB CONC 33.7 g/dL (32.0-36.0); Mean Corpuscular Hemoglobin 33.5 pg (27.0-31.0); Mean Corpuscular Volume 99.5 fL (78.0-98.0); Mean Platelet Volume 6.2 fL (7.4-10.4); Monocytes 13 % (0-10); Neutrophil 60 % (42-75); Platelet Count 293 thou/uL (130-400); Platelet Morphology Comment Appears Adequate; RBC Distribution Width 12.6 % (11.5-14.5); RBC Morphology Normal; Red Blood Cell (RBC) Count 3.49 mill/uL (4.20-5.40); White Blood Cell (WBC) Count 6.3 thou/uL (4.8-10.8)
[2021-09-08] MEDS: Potassium Chloride 20 MEQ TAB PO SCH (07:46)
[2021-09-08] MEDS: Metoprolol Tartrate 25 MG TAB PO SCH ×2 (07:47→20:14)
[2021-09-08] MEDS: predniSONE 5 MG TAB PO SCH (07:47)
[2021-09-08] MEDS: Apixaban 5 MG TAB PO SCH ×2 (07:48→20:14)
[2021-09-08] MEDS ORDERED: Potassium Chloride 40 MEQ in Premix Bag 1 BAG IVPB SCH (08:00)
[2021-09-08] MEDS: Lactated Ringer's 1,000 ML IV SCH ×2 (08:08→17:00)
[2021-09-08] MEDS: Ondansetron PF 4 MG/2 ML Vial IVP PRN (12:32)
[2021-09-09] MEDS: Vancomycin 25 MG/ML Oral SOLN PO SCH ×4 (04:20→23:23)
[2021-09-09] MEDS: Potassium Chloride 20 MEQ TAB PO SCH (09:10)
[2021-09-09] MEDS: predniSONE 5 MG TAB PO SCH (09:10)
[2021-09-09] MEDS: Metoprolol Tartrate 25 MG TAB PO SCH ×2 (09:10→19:42)
[2021-09-09] MEDS: Apixaban 5 MG TAB PO SCH ×2 (09:10→19:42)
[2021-09-09] MEDS: Ondansetron ODT 4 MG TAB PO SCH ×3 (12:12→23:23)
[2021-09-09 13:02] LABS: #Eosinphils 0.1 thou/uL (0.0-0.7); #Lymphocytes 0.6 thou/uL (1.20-3.40); #Monocytes 0.7 thou/uL (0.11-0.59); #Neutrophils 3.7 thou/uL (1.40-6.50); %Basophils 0.1 % (0.0-1.0); %Eosinophils 1.2 % (0.0-10.0); %Lymphocytes 12.8 % (21.0-51.0); %Neutrophils 72.9 % (42.0-75.0); Hemoglobin 13.8 g/dL (12.0-16.0); Mean Corpuscular HGB CONC 33.7 g/dL (32.0-36.0); Mean Corpuscular Volume 97.9 fL (78.0-98.0); Mean Platelet Volume 6.1 fL (7.4-10.4); Platelet Count 346 thou/uL (130-400); RBC Distribution Width 12.6 % (11.5-14.5); Red Blood Cell (RBC) Count 4.18 mill/uL (4.20-5.40)
[2021-09-09 13:22] LABS: Anion Gap 14 mmol/L (10-20); BUN (Urea Nitrogen) 4 mg/dL (9.8-20.1); Calc. Creatinine Clearance 76 mL/min (70-130); Calcium 6.7 mg/dL (7.8-10.44); Carbon Dioxide 24 mmol/L (23-31); Chloride 101 mmol/L (98-107); Glucose 99 mg/dL (80-115); Magnesium 1.5 mg/dL (1.6-2.6); Potassium 3.2 mmol/L (3.5-5.1); Sodium 136 mmol/L (136-145)
[2021-09-09] MEDS: Magnesium Oxide 400 MG TAB PO SCH (19:42)
[2021-09-10] MEDS ORDERED: Melatonin 3 MG TAB PO SCH (01:15)
[2021-09-10] MEDS: Vancomycin 25 MG/ML Oral SOLN PO SCH ×4 (05:30→21:48)
[2021-09-10] MEDS: Ondansetron ODT 4 MG TAB PO SCH ×4 (05:32→23:10)
[2021-09-10] MEDS: Acetaminophen 325 MG TAB PO PRN (05:46)
[2021-09-10 06:15] LABS: #Eosinphils 0.1 thou/uL (0.0-0.7); #Lymphocytes 0.9 thou/uL (1.20-3.40); #Monocytes 0.9 thou/uL (0.11-0.59); #Neutrophils 6.2 thou/uL (1.40-6.50); %Basophils 0.4 % (0.0-1.0); %Eosinophils 0.9 % (0.0-10.0); %Lymphocytes 10.8 % (21.0-51.0); %Neutrophils 76.9 % (42.0-75.0); Hemoglobin 13.7 g/dL (12.0-16.0); Mean Corpuscular HGB CONC 33.1 g/dL (32.0-36.0); Mean Corpuscular Volume 99.7 fL (78.0-98.0); Mean Platelet Volume 6.2 fL (7.4-10.4); Platelet Count 332 thou/uL (130-400); RBC Distribution Width 12.7 % (11.5-14.5); Red Blood Cell (RBC) Count 4.14 mill/uL (4.20-5.40)
[2021-09-10 06:39] LABS: Anion Gap 19 mmol/L (10-20); BUN (Urea Nitrogen) 4 mg/dL (9.8-20.1); Calc. Creatinine Clearance 75 mL/min (70-130); Calcium 6.8 mg/dL (7.8-10.44); Carbon Dioxide 17 mmol/L (23-31); Chloride 102 mmol/L (98-107); Glucose 61 mg/dL (80-115); Magnesium 1.5 mg/dL (1.6-2.6); Potassium 3.4 mmol/L (3.5-5.1); Sodium 135 mmol/L (136-145)
[2021-09-10] MEDS: Magnesium Oxide 400 MG TAB PO SCH (09:52)
[2021-09-10] MEDS: Apixaban 5 MG TAB PO SCH ×2 (09:52→21:45)
[2021-09-10] MEDS: Potassium Chloride 20 MEQ TAB PO SCH (09:52)
[2021-09-10] MEDS: predniSONE 5 MG TAB PO SCH (09:52)
[2021-09-10] MEDS: Magnesium 2 GM/50 ML 2 GM in Premix Bag 1 BAG IVPB SCH ×2 (09:57→14:08)
[2021-09-10] MEDS: Lactated Ringer's 1,000 ML IV SCH ×2 (09:57→14:08)
[2021-09-10] MEDS: Metoprolol Tartrate 25 MG TAB PO SCH ×2 (12:20→21:45)
[2021-09-10] MEDS: Melatonin 3 MG TAB PO SCH (21:44)
[2021-09-11] MEDS: Vancomycin 25 MG/ML Oral SOLN PO SCH ×4 (04:59→23:07)
[2021-09-11] MEDS: Ondansetron ODT 4 MG TAB PO SCH ×4 (05:00→23:07)
[2021-09-11 07:13] LABS: Anion Gap 15 mmol/L (10-20); BUN (Urea Nitrogen) 4 mg/dL (9.8-20.1); Calc. Creatinine Clearance 86 mL/min (70-130); Calcium 6.5 mg/dL (7.8-10.44); Carbon Dioxide 21 mmol/L (23-31); Chloride 106 mmol/L (98-107); Glucose 66 mg/dL (80-115); Magnesium 1.8 mg/dL (1.6-2.6); Potassium 3.3 mmol/L (3.5-5.1); Sodium 139 mmol/L (136-145)
[2021-09-11] MEDS ORDERED: Potassium Chloride 20 MEQ TAB PO SCH ×2 (08:15→10:15)
[2021-09-11] MEDS ORDERED: Magnesium 2 GM/50 ML 2 GM in Premix Bag 1 BAG IVPB SCH (09:15)
[2021-09-11] MEDS: predniSONE 5 MG TAB PO SCH (09:41)
[2021-09-11] MEDS: Metoprolol Tartrate 25 MG TAB PO SCH ×2 (09:41→20:11)
[2021-09-11] MEDS: Apixaban 5 MG TAB PO SCH ×2 (09:41→20:11)
[2021-09-11] MEDS: Potassium Chloride 20 MEQ TAB PO SCH (09:42)
[2021-09-11] MEDS: Acetaminophen 325 MG TAB PO PRN (10:05)
[2021-09-11] MEDS: Melatonin 3 MG TAB PO SCH (20:11)
[2021-09-11] MEDS: Benzonatate 100 MG CAP PO PRN (20:27)
[2021-09-12] MEDS: Vancomycin 25 MG/ML Oral SOLN PO SCH ×4 (04:59→21:57)
[2021-09-12] MEDS: Ondansetron ODT 4 MG TAB PO SCH ×4 (05:00→23:45)
[2021-09-12 06:19] LABS: Anion Gap 15 mmol/L (10-20); BUN (Urea Nitrogen) 4 mg/dL (9.8-20.1); Carbon Dioxide 22 mmol/L (23-31); Chloride 105 mmol/L (98-107); Potassium 4.5 mmol/L (3.5-5.1); Sodium 137 mmol/L (136-145)
[2021-09-12 06:20] LABS: Calc. Creatinine Clearance 81 mL/min (70-130); Calcium 6.7 mg/dL (7.8-10.44); Glucose 73 mg/dL (80-115); Magnesium 1.7 mg/dL (1.6-2.6)
[2021-09-12] MEDS: Apixaban 5 MG TAB PO SCH ×2 (09:23→21:57)
[2021-09-12] MEDS: predniSONE 5 MG TAB PO SCH (09:23)
[2021-09-12] MEDS: Magnesium Oxide 400 MG TAB PO SCH (09:24)
[2021-09-12] MEDS: Metoprolol Tartrate 25 MG TAB PO SCH ×2 (09:24→21:57)
[2021-09-12] MEDS: Potassium Chloride 20 MEQ TAB PO SCH (09:24)
[2021-09-12] MEDS ORDERED: Albuterol 200 PUFF (6.7GM INHALER) INH PRN (13:05)
[2021-09-12] MEDS: Melatonin 3 MG TAB PO SCH (21:57)
[2021-09-13] MEDS: Benzonatate 100 MG CAP PO PRN (01:40)
[2021-09-13] MEDS: Vancomycin 25 MG/ML Oral SOLN PO SCH ×4 (04:57→21:42)
[2021-09-13] MEDS: Ondansetron ODT 4 MG TAB PO SCH ×4 (05:13→23:48)
[2021-09-13 06:05] LABS: Anion Gap 14 mmol/L (10-20); BUN (Urea Nitrogen) 6 mg/dL (9.8-20.1); Calc. Creatinine Clearance 74 mL/min (70-130); Calcium 7.6 mg/dL (7.8-10.44); Carbon Dioxide 23 mmol/L (23-31); Chloride 105 mmol/L (98-107); Glucose 77 mg/dL (80-115); Magnesium 1.7 mg/dL (1.6-2.6); Potassium 4.5 mmol/L (3.5-5.1); Sodium 137 mmol/L (136-145)
[2021-09-13] MEDS: Potassium Chloride 20 MEQ TAB PO SCH (09:10)
[2021-09-13] MEDS: Metoprolol Tartrate 25 MG TAB PO SCH ×3 (09:10→21:41)
[2021-09-13] MEDS: Magnesium Oxide 400 MG TAB PO SCH (09:10)
[2021-09-13] MEDS: Apixaban 5 MG TAB PO SCH ×2 (09:10→21:41)
[2021-09-13] MEDS: predniSONE 5 MG TAB PO SCH (09:11)
[2021-09-13] MEDS ORDERED: Lactated Ringer's 500 ML IV SCH (09:30)
[2021-09-13] MEDS: Melatonin 3 MG TAB PO SCH (21:41)
[2021-09-14] MEDS ORDERED: Metoprolol Tartrate 25 MG TAB PO SCH ×3 (03:15→13:16)
[2021-09-14] MEDS: Vancomycin 25 MG/ML Oral SOLN PO SCH ×4 (05:29→22:57)
[2021-09-14] MEDS: Ondansetron ODT 4 MG TAB PO SCH ×4 (05:29→22:57)
[2021-09-14] MEDS ORDERED: Diltiazem 125 MG in Sodium Chloride 0.9% 100 ML IVPB SCH (06:15)
[2021-09-14] MEDS ORDERED: Lactated Ringer's 500 ML IV SCH (06:47)
[2021-09-14 07:05] LABS: Anion Gap 14 mmol/L (10-20); BUN (Urea Nitrogen) 7 mg/dL (9.8-20.1); Calc. Creatinine Clearance 76 mL/min (70-130); Calcium 8.2 mg/dL (7.8-10.44); Carbon Dioxide 22 mmol/L (23-31); Chloride 106 mmol/L (98-107); Glucose 89 mg/dL (80-115); Magnesium 1.7 mg/dL (1.6-2.6); Potassium 4.3 mmol/L (3.5-5.1); Sodium 138 mmol/L (136-145)
[2021-09-14] MEDS: predniSONE 5 MG TAB PO SCH (08:06)
[2021-09-14] MEDS: Potassium Chloride 20 MEQ TAB PO SCH (08:06)
[2021-09-14] MEDS: Apixaban 5 MG TAB PO SCH ×2 (08:06→19:52)
[2021-09-14] MEDS: Magnesium Oxide 400 MG TAB PO SCH (08:06)
[2021-09-14] MEDS ORDERED: Metoprolol Tartrate 5 MG/5 ML VIAL ONE (08:07)
[2021-09-14] MEDS: Metoprolol Tartrate 25 MG TAB PO SCH ×3 (08:10→18:18)
[2021-09-14] MEDS ORDERED: Metoprolol Tartrate 25 MG TAB ONE (08:10)
[2021-09-14] MEDS ORDERED: Digoxin 0.5 MG/2 ML AMP ONE (12:49)
[2021-09-14] MEDS: Digoxin 0.5 MG/2 ML AMP SLOW IVP SCH ×2 (12:58→14:24)
[2021-09-14] MEDS ORDERED: Digoxin 0.5 MG/2 ML AMP SLOW IVP SCH (13:19)
[2021-09-14] MEDS: Dronedarone HCl 400 MG TAB PO SCH (17:35)
[2021-09-14] MEDS: Melatonin 3 MG TAB PO SCH (19:51)
[2021-09-15] MEDS ORDERED: Metoprolol Tartrate 25 MG TAB PO SCH (03:30)
[2021-09-15] MEDS ORDERED: Sodium Chloride 0.9% 500 ML IVPB SCH (03:30)
[2021-09-15] MEDS: Vancomycin 25 MG/ML Oral SOLN PO SCH ×4 (04:40→23:11)
[2021-09-15] MEDS: Ondansetron ODT 4 MG TAB PO SCH ×4 (04:40→23:11)
[2021-09-15 06:46] LABS: Anion Gap 15 mmol/L (10-20); BUN (Urea Nitrogen) 7 mg/dL (9.8-20.1); Calc. Creatinine Clearance 66 mL/min (70-130); Carbon Dioxide 21 mmol/L (23-31); Chloride 107 mmol/L (98-107); Glucose 80 mg/dL (80-115); Magnesium 1.8 mg/dL (1.6-2.6); Potassium 4.1 mmol/L (3.5-5.1); Sodium 139 mmol/L (136-145)
[2021-09-15 07:10] LABS: Hemoglobin 13.6 g/dL (12.0-16.0); Mean Corpuscular HGB CONC 31.7 g/dL (32.0-36.0); Mean Corpuscular Hemoglobin 31.3 pg (27.0-31.0); Mean Corpuscular Volume 98.6 fL (78.0-98.0); Mean Platelet Volume 6.4 fL (7.4-10.4); Platelet Count 532 thou/uL (130-400); RBC Distribution Width 12.7 % (11.5-14.5); Red Blood Cell (RBC) Count 4.34 mill/uL (4.20-5.40); White Blood Cell (WBC) Count 7.1 thou/uL (4.8-10.8)
[2021-09-15] MEDS: Apixaban 5 MG TAB PO SCH ×2 (08:17→19:58)
[2021-09-15] MEDS: Potassium Chloride 20 MEQ TAB PO SCH (08:18)
[2021-09-15] MEDS: predniSONE 5 MG TAB PO SCH (08:18)
[2021-09-15] MEDS: Magnesium Oxide 400 MG TAB PO SCH (08:18)
[2021-09-15] MEDS: Metoprolol Tartrate 25 MG TAB PO SCH ×2 (08:18→19:58)
[2021-09-15] MEDS: Dronedarone HCl 400 MG TAB PO SCH ×2 (08:18→17:04)
[2021-09-15 08:48] LABS: Band 3 % (5-11); Lymphocytes 31 % (21-51); MDiff Complete? YES; Monocytes 15 % (0-10); Neutrophil 50 % (42-75); Platelet Morphology Comment Appears Increased; RBC Morphology Normal; Reactive Lymphocytes 1 % (0-10)
[2021-09-15] MEDS ORDERED: Polyvinyl Alcohol 1.4%/Povidone 0.6% Opth Drops EA EYE PRN (12:13)
[2021-09-15] MEDS: Melatonin 3 MG TAB PO SCH (19:58)
[2021-09-16] MEDS: Acetaminophen 325 MG TAB PO PRN (00:49)
[2021-09-16] MEDS: Vancomycin 25 MG/ML Oral SOLN PO SCH ×4 (04:14→21:49)
[2021-09-16] MEDS: Ondansetron ODT 4 MG TAB PO SCH ×4 (05:00→23:30)
[2021-09-16 05:34] LABS: Anion Gap 15 mmol/L (10-20); BUN (Urea Nitrogen) 7 mg/dL (9.8-20.1); Calc. Creatinine Clearance 60 mL/min (70-130); Calcium 8.4 mg/dL (7.8-10.44); Carbon Dioxide 25 mmol/L (23-31); Chloride 103 mmol/L (98-107); Glucose 80 mg/dL (80-115); Magnesium 1.8 mg/dL (1.6-2.6); Potassium 3.7 mmol/L (3.5-5.1); Sodium 139 mmol/L (136-145)
[2021-09-16] MEDS ORDERED: Artificial Tear Sol 15 ML BOT EA EYE PRN (08:45)
[2021-09-16] MEDS: predniSONE 5 MG TAB PO SCH (09:39)
[2021-09-16] MEDS: Potassium Chloride 20 MEQ TAB PO SCH (09:39)
[2021-09-16] MEDS: Metoprolol Tartrate 25 MG TAB PO SCH ×2 (09:39→21:24)
[2021-09-16] MEDS: Magnesium Oxide 400 MG TAB PO SCH (09:39)
[2021-09-16] MEDS: Apixaban 5 MG TAB PO SCH ×2 (09:39→21:24)
[2021-09-16] MEDS: Dronedarone HCl 400 MG TAB PO SCH ×2 (09:39→17:27)
[2021-09-16] MEDS: Melatonin 3 MG TAB PO SCH (21:24)
[2021-09-17] MEDS: Vancomycin 25 MG/ML Oral SOLN PO SCH ×4 (04:08→20:35)
[2021-09-17] MEDS: Ondansetron ODT 4 MG TAB PO SCH ×4 (05:49→23:33)
[2021-09-17 06:11] LABS: Anion Gap 13 mmol/L (10-20); BUN (Urea Nitrogen) 7 mg/dL (9.8-20.1); Calc. Creatinine Clearance 48 mL/min (70-130); Calcium 9.2 mg/dL (7.8-10.44); Carbon Dioxide 26 mmol/L (23-31); Chloride 103 mmol/L (98-107); Glucose 100 mg/dL (80-115); Potassium 3.9 mmol/L (3.5-5.1); Sodium 138 mmol/L (136-145)
[2021-09-17] MEDS: Dronedarone HCl 400 MG TAB PO SCH ×2 (10:03→17:54)
[2021-09-17] MEDS: Potassium Chloride 20 MEQ TAB PO SCH (10:03)
[2021-09-17] MEDS: Apixaban 5 MG TAB PO SCH ×2 (10:04→20:34)
[2021-09-17] MEDS: Magnesium Oxide 400 MG TAB PO SCH (10:04)
[2021-09-17] MEDS: predniSONE 5 MG TAB PO SCH (10:04)
[2021-09-17] MEDS: Metoprolol Tartrate 25 MG TAB PO SCH ×2 (10:04→20:34)
[2021-09-17] MEDS: Melatonin 3 MG TAB PO SCH (20:33)
[2021-09-18] MEDS: Vancomycin 25 MG/ML Oral SOLN PO SCH (03:57)
[2021-09-18] MEDS: Ondansetron ODT 4 MG TAB PO SCH ×4 (05:10→23:08)
[2021-09-18 05:21] LABS: Anion Gap 14 mmol/L (10-20); BUN (Urea Nitrogen) 8 mg/dL (9.8-20.1); Calc. Creatinine Clearance 43 mL/min (70-130); Calcium 9.2 mg/dL (7.8-10.44); Carbon Dioxide 27 mmol/L (23-31); Chloride 101 mmol/L (98-107); Glucose 76 mg/dL (80-115); Potassium 4.2 mmol/L (3.5-5.1); Sodium 138 mmol/L (136-145)
[2021-09-18] MEDS: Magnesium Oxide 400 MG TAB PO SCH (09:57)
[2021-09-18] MEDS: Apixaban 5 MG TAB PO SCH ×2 (09:57→20:29)
[2021-09-18] MEDS: Potassium Chloride 20 MEQ TAB PO SCH (09:57)
[2021-09-18] MEDS: predniSONE 5 MG TAB PO SCH (09:58)
[2021-09-18] MEDS: Dronedarone HCl 400 MG TAB PO SCH ×2 (09:58→19:22)
[2021-09-18] MEDS: Metoprolol Tartrate 25 MG TAB PO SCH ×2 (10:16→20:29)
[2021-09-18] MEDS: Lactated Ringer's 1,000 ML IV SCH ×2 (12:29→22:29)
[2021-09-18] MEDS: Melatonin 3 MG TAB PO SCH (20:29)
[2021-09-19] MEDS: Ondansetron ODT 4 MG TAB PO SCH ×4 (05:03→23:27)
[2021-09-19 08:00] LABS: Anion Gap 18 mmol/L (10-20); BUN (Urea Nitrogen) 11 mg/dL (9.8-20.1); Calc. Creatinine Clearance 42 mL/min (70-130); Calcium 9.1 mg/dL (7.8-10.44); Carbon Dioxide 23 mmol/L (23-31); Chloride 102 mmol/L (98-107); Glucose 76 mg/dL (80-115); Sodium 138 mmol/L (136-145)
[2021-09-19 08:27] LABS: Hemoglobin 13.4 g/dL (12.0-16.0); Mean Corpuscular HGB CONC 31.6 g/dL (32.0-36.0); Mean Corpuscular Hemoglobin 30.7 pg (27.0-31.0); Mean Corpuscular Volume 97.2 fL (78.0-98.0); Mean Platelet Volume 5.8 fL (7.4-10.4); Platelet Count 643 thou/uL (130-400); RBC Distribution Width 12.7 % (11.5-14.5); Red Blood Cell (RBC) Count 4.35 mill/uL (4.20-5.40); White Blood Cell (WBC) Count 9.3 thou/uL (4.8-10.8)
[2021-09-19] MEDS: Metoprolol Tartrate 25 MG TAB PO SCH ×2 (09:26→20:49)
[2021-09-19] MEDS: predniSONE 5 MG TAB PO SCH (09:26)
[2021-09-19] MEDS: Dronedarone HCl 400 MG TAB PO SCH ×2 (09:26→16:52)
[2021-09-19] MEDS: Apixaban 5 MG TAB PO SCH ×2 (09:27→20:49)
[2021-09-19] MEDS: Magnesium Oxide 400 MG TAB PO SCH (09:27)
[2021-09-19] MEDS: Potassium Chloride 20 MEQ TAB PO SCH (09:27)
[2021-09-19 10:39] LABS: Band 2 % (5-11); Lymphocytes 24 % (21-51); MDiff Complete? YES; Monocytes 10 % (0-10); Neutrophil 54 % (42-75); RBC Morphology Normal; Reactive Lymphocytes 9 % (0-10)
[2021-09-19 12:57] VITALS: BMI 23.0
[2021-09-19] MEDS: Melatonin 3 MG TAB PO SCH (20:49)
[2021-09-20 05:55] VITALS: TEMP 98.2
[2021-09-20] MEDS: Ondansetron ODT 4 MG TAB PO SCH ×2 (06:03→12:18)
[2021-09-20 07:50] LABS: Anion Gap 16 mmol/L (10-20); BUN (Urea Nitrogen) 9 mg/dL (9.8-20.1); Calc. Creatinine Clearance 38 mL/min (70-130); Calcium 9.2 mg/dL (7.8-10.44); Carbon Dioxide 25 mmol/L (23-31); Chloride 102 mmol/L (98-107); Glucose 92 mg/dL (80-115); Potassium 3.9 mmol/L (3.5-5.1); Sodium 139 mmol/L (136-145)
[2021-09-20 08:48] LABS: Hemoglobin 14.3 g/dL (12.0-16.0); Mean Corpuscular HGB CONC 30.9 g/dL (32.0-36.0); Mean Corpuscular Hemoglobin 31.1 pg (27.0-31.0); Mean Platelet Volume 6.3 fL (7.4-10.4); Platelet Count 593 thou/uL (130-400); RBC Distribution Width 12.7 % (11.5-14.5); Red Blood Cell (RBC) Count 4.58 mill/uL (4.20-5.40); White Blood Cell (WBC) Count 9.6 thou/uL (4.8-10.8)
[2021-09-20] MEDS: Potassium Chloride 20 MEQ TAB PO SCH (08:49)
[2021-09-20] MEDS: Dronedarone HCl 400 MG TAB PO SCH ×2 (08:49→16:56)
[2021-09-20] MEDS: Metoprolol Tartrate 25 MG TAB PO SCH (08:50)
[2021-09-20] MEDS: Apixaban 5 MG TAB PO SCH (08:51)
[2021-09-20] MEDS: predniSONE 5 MG TAB PO SCH (08:51)
[2021-09-20] MEDS: Magnesium Oxide 400 MG TAB PO SCH (08:51)
[2021-09-20 10:32] LABS: Band 1 % (5-11); Lymphocytes 26 % (21-51); MDiff Complete? YES; Monocytes 13 % (0-10); Neutrophil 60 % (42-75); Platelet Morphology Comment Appears Adequate; Polychromasia SLIGHT = 2-3 cells (100X) (0-2/hpf)
[2021-09-20 17:20] VITALS: BP 109/69
== END 2021-09-20 17:24 | disposition swing bed (61) | DRG 371 ==
LOC: ERS 03:30 → ERHOLD 09:17 → 2SW 21:17 → 2NO 09-16 00:27 → T4-B 09-18 21:39
PROVIDERS: ADMIT Family Medicine; ATTEND Family Medicine
PROC: 8E0ZXY6 Isolation (ICD-10-PCS; principal; 2021-09-05)
DX: A04.72 Enterocolitis due to Clostridium difficile, not specified as recurrent (principal); U07.1 COVID-19; I47.1 Supraventricular tachycardia; I48.92 Unspecified atrial flutter; E78.5 Hyperlipidemia, unspecified; G89.29 Other chronic pain; M54.9 Dorsalgia, unspecified; M81.0 Age-related osteoporosis without current pathological fracture; G62.9 Polyneuropathy, unspecified; Z96.651 Presence of right artificial knee joint; Z96.611 Presence of right artificial shoulder joint; F17.290 Nicotine dependence, other tobacco product, uncomplicated; E87.5 Hyperkalemia; I77.1 Stricture of artery; I48.0 Paroxysmal atrial fibrillation; E87.6 Hypokalemia; S82.891A Other fracture of right lower leg, initial encounter for closed fracture; E83.42 Hypomagnesemia; I08.1 Rheumatic disorders of both mitral and tricuspid valves; E78.00 Pure hypercholesterolemia, unspecified; J44.9 Chronic obstructive pulmonary disease, unspecified; D69.6 Thrombocytopenia, unspecified; Z88.1 Allergy status to other antibiotic agents; Z79.899 Other long term (current) drug therapy; Z79.51 Long term (current) use of inhaled steroids; Z79.52 Long term (current) use of systemic steroids; Z79.82 Long term (current) use of aspirin; Z79.01 Long term (current) use of anticoagulants; Z79.84 Long term (current) use of oral hypoglycemic drugs; Z87.11 Personal history of peptic ulcer disease; Z90.49 Acquired absence of other specified parts of digestive tract; Z98.1 Arthrodesis status; Z82.49 Family history of ischemic heart disease and other diseases of the circulatory system; Z83.3 Family history of diabetes mellitus; Z98.51 Tubal ligation status
CPT/HCPCS: 36415; 36416; 71045; 74177; 80048; 80053; 81003; 81015; 83605; 83690; 83735; 84484; 85025; 87045; 87046; 87081; 87324; 87427; 87449; 87493; 87804; 93005; 93010; 93306; 96361; 96365; 96375; J1160; J2270; J2405; J2543; J3475; J3480; J3490; J7030; J7120; J7512; Q0162; U0002

== ENCOUNTER 2022-01-05 16:23 | Inpatient (IN) | payer MEDICARE, OTHER ==
[2022-01-05 18:13] LABS: #Basophils 0.1 thou/uL (0.0-0.2); #Eosinphils 0.3 thou/uL (0.0-0.7); #Lymphocytes 2.3 thou/uL (1.20-3.40); #Monocytes 0.9 thou/uL (0.11-0.59); #Neutrophils 6.5 thou/uL (1.40-6.50); %Basophils 0.6 % (0.0-1.0); %Eosinophils 2.9 % (0.0-10.0); %Lymphocytes 22.7 % (21.0-51.0); %Monocytes 9.3 % (0.0-10.0); %Neutrophils 64.5 % (42.0-75.0); Hemoglobin 15.3 g/dL (12.0-16.0); Mean Corpuscular HGB CONC 32.3 g/dL (32.0-36.0); Mean Corpuscular Hemoglobin 32.1 pg (27.0-31.0); Mean Corpuscular Volume 99.6 fL (78.0-98.0); Mean Platelet Volume 7.1 fL (7.4-10.4); Platelet Count 292 thou/uL (130-400); RBC Distribution Width 12.6 % (11.5-14.5); Red Blood Cell (RBC) Count 4.77 mill/uL (4.20-5.40)
[2022-01-05 18:35] LABS: ALT (SGPT) 15 U/L (8-55); AST (SGOT) 21 U/L (5-34); Albumin 3.8 g/dL (3.4-4.8); Alkaline Phosphatase 67 U/L (40-110); Anion Gap 13 mmol/L (10-20); BUN (Urea Nitrogen) 8 mg/dL (9.8-20.1); Bilirubin, Total 0.9 mg/dL (0.2-1.2); Calc. Creatinine Clearance 0 mL/min (70-130); Calcium 8.8 mg/dL (7.8-10.44); Carbon Dioxide 27 mmol/L (23-31); Chloride 102 mmol/L (98-107); Globulin 2.2 g/dL (2.4-3.5); Glucose 85 mg/dL (80-115); Potassium 4.3 mmol/L (3.5-5.1); Sodium 138 mmol/L (136-145)
[2022-01-05] MEDS ORDERED: methylPREDNISolone Sod Succ 40 MG VIAL ONE (20:54)
[2022-01-05] MEDS ORDERED: Enoxaparin Sodium 60 MG/0.6 ML SYRINGE ONE (21:24)
[2022-01-05] MEDS ORDERED: Albuterol Sulfate 2.5 mg/3 ml Neb NEB PRN (22:00)
[2022-01-05] MEDS ORDERED: Ondansetron PF 4 MG/2 ML Vial IVP PRN (22:05)
[2022-01-05] MEDS ORDERED: Acetaminophen 325 MG TAB PO PRN (22:05)
[2022-01-05] MEDS ORDERED: Ondansetron ODT 4 MG TAB PO PRN (22:05)
[2022-01-05] MEDS ORDERED: Senokot S 8.6-50 MG TAB PO PRN (22:05)
[2022-01-05] MEDS ORDERED: Benzonatate 100 MG CAP PO PRN (22:07)
[2022-01-05 23:08] VITALS: BMI 23.9
[2022-01-05] MEDS ORDERED: Nicotine 14 MG PATCH TD SCH (23:59)
[2022-01-06 00:13] LABS: SARS-CoV-2 NAA Rapid Test Not Detected (NotDetected)
[2022-01-06 03:38] LABS: Bilirubin Negative (Negative); Blood, Urine Negative (Negative); Clarity Clear (Clear); Glucose, Urine (Dipstick) Normal (Negative); Ketone, Urine Trace mg/dL (Negative); Leukocyte Negative Leu/uL (Negative); Nitrite Negative (Negative); Protein, Urine (Dipstick) Negative (Neg-Trace); RBC/HPF 0-3 HPF (0-3); Specific Gravity, Urine 1.037 (1.002-1.036); Squamous Epithelial 0-3 HPF (0-3); pH, Urine 7.5 (5.0-9.0)
[2022-01-06 03:40] LABS: Bacteria/HPF 3+ HPF (None Seen)
[2022-01-06 03:41] LABS: Urine Culture Reflex Yes Yes
[2022-01-06 05:13] LABS: #Lymphocytes 0.7 thou/uL (1.20-3.40); #Monocytes 0.1 thou/uL (0.11-0.59); #Neutrophils 7.7 thou/uL (1.40-6.50); %Eosinophils 0.3 % (0.0-10.0); %Monocytes 0.9 % (0.0-10.0); %Neutrophils 90.8 % (42.0-75.0); Hemoglobin 14.5 g/dL (12.0-16.0); Mean Corpuscular HGB CONC 32.5 g/dL (32.0-36.0); Mean Corpuscular Hemoglobin 32.5 pg (27.0-31.0); Platelet Count 313 thou/uL (130-400); RBC Distribution Width 12.6 % (11.5-14.5); Red Blood Cell (RBC) Count 4.45 mill/uL (4.20-5.40); White Blood Cell (WBC) Count 8.4 thou/uL (4.8-10.8)
[2022-01-06 05:33] LABS: Anion Gap 15 mmol/L (10-20); BUN (Urea Nitrogen) 12 mg/dL (9.8-20.1); Calc. Creatinine Clearance 53 mL/min (70-130); Calcium 9.1 mg/dL (7.8-10.44); Carbon Dioxide 26 mmol/L (23-31); Chloride 103 mmol/L (98-107); Glucose 147 mg/dL (80-115); Magnesium 1.9 mg/dL (1.6-2.6); Sodium 140 mmol/L (136-145)
[2022-01-06] MEDS ORDERED: Nicotine 14 MG PATCH TD PRN (07:59)
[2022-01-06] MEDS: DULoxetine 30 MG CAP PO SCH (08:41)
[2022-01-06] MEDS: Metoprolol Tartrate 25 MG TAB PO SCH ×2 (08:41→20:20)
[2022-01-06] MEDS: Folic Acid 1 MG TAB PO SCH (08:41)
[2022-01-06] MEDS: Montelukast Sodium 10 mg Tablet PO SCH (08:42)
[2022-01-06] MEDS: methylPREDNISolone Sod Succ 40 MG VIAL IVP SCH (08:42)
[2022-01-06] MEDS ORDERED: Enoxaparin Sodium 60 MG/0.6 ML SYRINGE SC SCH (09:00)
[2022-01-06] MEDS ORDERED: Gabapentin 300 MG CAP PO SCH (09:00)
[2022-01-06] MEDS: Mometasone 200 MCG/Formoterol 5 MCG 120 PUFF INHALER INH SCH ×2 (10:39→18:59)
[2022-01-06] MEDS: Dronedarone HCl 400 MG TAB PO SCH (16:31)
[2022-01-06] MEDS: Apixaban 5 MG TAB PO SCH (20:20)
[2022-01-06] MEDS ORDERED: Rosuvastatin 20 MG TAB PO SCH (21:00)
[2022-01-07 05:16] LABS: Anion Gap 13 mmol/L (10-20); BUN (Urea Nitrogen) 11 mg/dL (9.8-20.1); Calc. Creatinine Clearance 57 mL/min (70-130); Calcium 8.6 mg/dL (7.8-10.44); Carbon Dioxide 28 mmol/L (23-31); Chloride 105 mmol/L (98-107); Glucose 115 mg/dL (80-115); Potassium 4.1 mmol/L (3.5-5.1); Sodium 142 mmol/L (136-145)
[2022-01-07] MEDS: Mometasone 200 MCG/Formoterol 5 MCG 120 PUFF INHALER INH SCH (07:33)
[2022-01-07] MEDS ORDERED: Potassium Chloride 20 MEQ TAB PO SCH ×2 (08:00→09:00)
[2022-01-07] MEDS: Montelukast Sodium 10 mg Tablet PO SCH (08:02)
[2022-01-07] MEDS: Apixaban 5 MG TAB PO SCH (08:02)
[2022-01-07] MEDS: DULoxetine 30 MG CAP PO SCH (08:02)
[2022-01-07] MEDS: Dronedarone HCl 400 MG TAB PO SCH (08:03)
[2022-01-07] MEDS: Metoprolol Tartrate 25 MG TAB PO SCH (08:03)
[2022-01-07] MEDS: methylPREDNISolone Sod Succ 40 MG VIAL IVP SCH (08:03)
[2022-01-07] MEDS: Folic Acid 1 MG TAB PO SCH (08:03)
[2022-01-07] MEDS ORDERED: Lidocaine Viscous Sol 2% 15 ml UD Cup SSP SCH (09:00)
[2022-01-07] MEDS ORDERED: Magnesium Oxide 400 MG TAB PO SCH (09:00)
[2022-01-07] MEDS: Cepastat Lozenges 1 LOZ PO SCH ×2 (09:06→11:21)
[2022-01-07 09:58] LABS: Band 4 % (5-11); Hemoglobin 14.9 g/dL (12.0-16.0); Hypochromia SLIGHT = 6-15 cells (100X) (0-5/hpf); Lymphocytes 5 % (21-51); MDiff Complete? YES; Macrocytosis SLIGHT = 6-15 cells (100X) (0-5/hpf); Mean Corpuscular HGB CONC 31.3 g/dL (32.0-36.0); Mean Corpuscular Hemoglobin 32.1 pg (27.0-31.0); Mean Platelet Volume 7.3 fL (7.4-10.4); Monocytes 6 % (0-10); Neutrophil 85 % (42-75); Platelet Count 317 thou/uL (130-400); Platelet Morphology Comment Appears Adequate; RBC Distribution Width 12.9 % (11.5-14.5); Red Blood Cell (RBC) Count 4.64 mill/uL (4.20-5.40); White Blood Cell (WBC) Count 28.4 thou/uL (4.8-10.8)
[2022-01-07 11:27] VITALS: TEMP 98.1
[2022-01-07 12:36] VITALS: BP 110/59
== END 2022-01-07 12:10 | disposition home or self-care (01) | DRG 299 ==
LOC: ERS 16:23 → OBSVTOIN 21:42 → 2SW 21:42
PROVIDERS: ADMIT Family Medicine; ATTEND Family Medicine
DX: I82.621 Acute embolism and thrombosis of deep veins of right upper extremity (principal); J96.01 Acute respiratory failure with hypoxia; J44.1 Chronic obstructive pulmonary disease with (acute) exacerbation; I50.32 Chronic diastolic (congestive) heart failure; I47.1 Supraventricular tachycardia; Z20.822 Contact with and (suspected) exposure to COVID-19; I48.91 Unspecified atrial fibrillation; I11.0 Hypertensive heart disease with heart failure; E78.5 Hyperlipidemia, unspecified; I73.9 Peripheral vascular disease, unspecified; F17.210 Nicotine dependence, cigarettes, uncomplicated; M54.9 Dorsalgia, unspecified; G89.29 Other chronic pain; K21.9 Gastro-esophageal reflux disease without esophagitis; K27.9 Peptic ulcer, site unspecified, unspecified as acute or chronic, without hemorrhage or perforation; E78.00 Pure hypercholesterolemia, unspecified; I25.10 Atherosclerotic heart disease of native coronary artery without angina pectoris; F41.9 Anxiety disorder, unspecified; Z96.611 Presence of right artificial shoulder joint; Z96.651 Presence of right artificial knee joint; Z91.14 Patient's other noncompliance with medication regimen; Z79.01 Long term (current) use of anticoagulants; Z88.1 Allergy status to other antibiotic agents; Z79.899 Other long term (current) drug therapy; Z79.52 Long term (current) use of systemic steroids; Z79.51 Long term (current) use of inhaled steroids
CPT/HCPCS: 36415; 71045; 71275; 80048; 80053; 81001; 83735; 83880; 84484; 85025; 87077; 87086; 87186; 93005; 94640; 94760; 96372; 96374; J1650; J2920; J7620

== ENCOUNTER 2022-02-05 11:45 | Emergency (ER) | payer MEDICARE, OTHER ==
[2022-02-05 12:56] LABS: #Basophils 0.1 thou/uL (0.0-0.2); #Eosinphils 0.4 thou/uL (0.0-0.7); #Lymphocytes 2.9 thou/uL (1.20-3.40); #Monocytes 1.6 thou/uL (0.11-0.59); %Basophils 0.7 % (0.0-1.0); %Eosinophils 2.5 % (0.0-10.0); %Lymphocytes 20.7 % (21.0-51.0); %Monocytes 11.6 % (0.0-10.0); %Neutrophils 64.4 % (42.0-75.0); Hemoglobin 13.5 g/dL (12.0-16.0); Mean Corpuscular HGB CONC 32.5 g/dL (32.0-36.0); Mean Corpuscular Hemoglobin 32.3 pg (27.0-31.0); Mean Corpuscular Volume 99.3 fL (78.0-98.0); Mean Platelet Volume 6.4 fL (7.4-10.4); Platelet Count 375 thou/uL (130-400); RBC Distribution Width 11.9 % (11.5-14.5); Red Blood Cell (RBC) Count 4.17 mill/uL (4.20-5.40)
[2022-02-05 13:18] LABS: ALT (SGPT) 8 U/L (8-55); AST (SGOT) 12 U/L (5-34); Albumin 3.5 g/dL (3.4-4.8); Alkaline Phosphatase 56 U/L (40-110); Anion Gap 13 mmol/L (10-20); BUN (Urea Nitrogen) 7 mg/dL (9.8-20.1); Bilirubin, Total 0.4 mg/dL (0.2-1.2); Calc. Creatinine Clearance 0 mL/min (70-130); Calcium 8.8 mg/dL (7.8-10.44); Carbon Dioxide 27 mmol/L (23-31); Chloride 105 mmol/L (98-107); Globulin 2.2 g/dL (2.4-3.5); Glucose 105 mg/dL (80-115); Potassium 3.6 mmol/L (3.5-5.1); Protein, Total 5.7 g/dL (5.8-8.1); Sodium 141 mmol/L (136-145)
== END 2022-02-05 14:32 | disposition home or self-care (01) ==
LOC: ERS 11:45
DX: M79.601 Pain in right arm (principal); M81.0 Age-related osteoporosis without current pathological fracture; E78.5 Hyperlipidemia, unspecified; E78.00 Pure hypercholesterolemia, unspecified; I10 Essential (primary) hypertension; J44.9 Chronic obstructive pulmonary disease, unspecified; I48.91 Unspecified atrial fibrillation; F17.210 Nicotine dependence, cigarettes, uncomplicated; Z79.899 Other long term (current) drug therapy; Z79.01 Long term (current) use of anticoagulants
CPT/HCPCS: 36415; 71045; 80053; 83880; 84484; 85025; 93005

== ENCOUNTER 2023-06-15 02:30 | Observation (INO) | payer OTHER ==
[2023-06-15 05:18] VITALS: BMI 20.1
[2023-06-15 06:06] LABS: #Basophils 0.1 thou/uL (0.0-0.2); #Eosinphils 0.1 thou/uL (0.0-0.7); #Monocytes 0.7 thou/uL (0.11-0.59); #Neutrophils 5.4 thou/uL (1.40-6.50); %Basophils 0.6 % (0.0-1.0); %Eosinophils 1.6 % (0.0-10.0); %Monocytes 8.3 % (0.0-10.0); %Neutrophils 66.4 % (42.0-75.0); Hematocrit 38.8 % (36.0-47.0); Hemoglobin 12.8 g/dL (12.0-16.0); Mean Corpuscular Hemoglobin 31.4 pg (27.0-31.0); Mean Corpuscular Volume 95.3 fl (78.0-98.0); Mean Platelet Volume 9.1 fL (7.4-10.4); Platelet Count 224 10x3/uL (130-400); RBC Distribution Width 13.9 % (11.5-14.5); Red Blood Cell (RBC) Count 4.07 mill/uL (4.20-5.40); White Blood Cell (WBC) Count 8.2 10x3/uL (4.8-10.8)
[2023-06-15 06:30] LABS: Anion Gap 9 mmol/L (10-20); BUN (Urea Nitrogen) 4 mg/dL (9.8-20.1); Calc. Creatinine Clearance 47 mL/min (70-130); Calcium 8.2 mg/dL (7.8-10.44); Carbon Dioxide 32 mmol/L (23-31); Chloride 105 mmol/L (98-107); Estimated GFR 79; Glucose 80 mg/dL (83-110); Magnesium 1.7 mg/dL (1.6-2.6); Potassium 3.7 mmol/L (3.5-5.1); Sodium 142 mmol/L (136-145)
[2023-06-15] MEDS ORDERED: Acetaminophen 325 MG TAB PO PRN (06:44)
[2023-06-15] MEDS ORDERED: Ondansetron PF 4 MG/2 ML Vial IVP PRN (06:44)
[2023-06-15] MEDS ORDERED: Nitroglycerin 0.4 MG TAB (25 Tab Bottle) SL PRN (06:44)
[2023-06-15] MEDS ORDERED: Acetaminophen 650 MG Suppository PR PRN (06:44)
[2023-06-15] MEDS ORDERED: Ondansetron ODT 4 MG TAB PO PRN (06:44)
[2023-06-15] MEDS ORDERED: Electrolyte Replacement Protocol 1 EACH FS SCH (07:00)
[2023-06-15] MEDS ORDERED: Aspirin Chewable 81 MG TAB PO SCH (07:00)
[2023-06-15] MEDS ORDERED: Ipratropium/Albuterol 3 ML NEB NEB PRN (07:05)
[2023-06-15 07:28] LABS: Troponin I Less than 0.010 ng/mL (< 0.028)
[2023-06-15] MEDS ORDERED: Furosemide 40 MG/4 ML VIAL SLOW IVP SCH (07:45)
[2023-06-15] MEDS ORDERED: Magnesium 2 GM/50 ML(in water) 2 GM in Premix Bag 1 BAG IVPB SCH (08:00)
[2023-06-15 15:52] VITALS: BP 144/70; TEMP 97.4
[2023-06-16] MEDS ORDERED: Aspirin Chewable 81 MG TAB PO SCH (09:00)
[2023-06-16] MEDS ORDERED: Furosemide 40 MG/4 ML VIAL SLOW IVP SCH (09:00)
== END 2023-06-15 17:30 | disposition home or self-care (01) ==
LOC: 2SW 04:55
PROVIDERS: ADMIT Student in an Organized Health Care Education/Training Program; ATTEND Nurse Practitioner Family
DX: R07.89 Other chest pain (principal); I11.0 Hypertensive heart disease with heart failure; I50.9 Heart failure, unspecified; I08.1 Rheumatic disorders of both mitral and tricuspid valves; I25.10 Atherosclerotic heart disease of native coronary artery without angina pectoris; E11.9 Type 2 diabetes mellitus without complications; D50.9 Iron deficiency anemia, unspecified; M81.0 Age-related osteoporosis without current pathological fracture; F17.210 Nicotine dependence, cigarettes, uncomplicated; E87.6 Hypokalemia; Z90.49 Acquired absence of other specified parts of digestive tract; Z79.84 Long term (current) use of oral hypoglycemic drugs; Z88.1 Allergy status to other antibiotic agents; Z79.01 Long term (current) use of anticoagulants; Z79.899 Other long term (current) drug therapy
CPT/HCPCS: 80048; 83735; 84484; 85025; 93306; 96374; 96376; G0378; 36415; J1940; J3475

== ENCOUNTER 2023-08-22 12:25 | Inpatient (IN) | payer OTHER, MEDICAID ==
[2023-08-22] MEDS ORDERED: methylPREDNISolone Sod Succ/PF 125 MG/2 ML VIAL ONE (12:55)
[2023-08-22] MEDS ORDERED: Ipratropium/Albuterol 3 ML NEB ONE (12:57)
[2023-08-22 13:01] LABS: #Basophils 0.1 thou/uL (0.0-0.2); %Basophils 0.4 % (0.0-1.0); %Eosinophils 0.4 % (0.0-10.0); %Lymphocytes 9.3 % (21.0-51.0); %Monocytes 8.8 % (0.0-10.0); %Neutrophils 80.7 % (42.0-75.0); Hemoglobin 15.2 g/dL (12.0-16.0); Mean Corpuscular HGB CONC 34.5 g/dL (32.0-36.0); Mean Corpuscular Hemoglobin 32.8 pg (27.0-31.0); Mean Corpuscular Volume 94.8 fl (78.0-98.0); Mean Platelet Volume 8.5 fL (7.4-10.4); Platelet Count 311 10x3/uL (130-400); RBC Distribution Width 12.8 % (11.5-14.5); Red Blood Cell (RBC) Count 4.64 mill/uL (4.20-5.40); White Blood Cell (WBC) Count 11.1 10x3/uL (4.8-10.8)
[2023-08-22 13:25] LABS: ALT (SGPT) 24 U/L (8-55); AST (SGOT) 20 U/L (5-34); Albumin 3.4 g/dL (3.4-4.8); Alkaline Phosphatase 82 U/L (40-110); Anion Gap 14 mmol/L (10-20); BUN (Urea Nitrogen) 6 mg/dL (9.8-20.1); Bilirubin, Total 1.3 mg/dL (0.2-1.2); Calc. Creatinine Clearance 0 mL/min (70-130); Calcium 8.6 mg/dL (7.8-10.44); Carbon Dioxide 30 mmol/L (23-31); Chloride 96 mmol/L (98-107); Estimated GFR 71; Globulin 3.1 g/dL (2.4-3.5); Glucose 81 mg/dL (83-110); Magnesium 1.5 mg/dL (1.6-2.6); Protein, Total 6.5 g/dL (5.8-8.1); Sodium 137 mmol/L (136-145)
[2023-08-22 13:29] LABS: Troponin I Less than 0.010 ng/mL (< 0.028)
[2023-08-22 14:05] LABS: SARS-CoV-2 NAA Rapid Test Not Detected (NotDetected)
[2023-08-22] MEDS ORDERED: Iopamidol-370 76% 500 ML MDV (1 ML CHARGE) ONE (14:18)
[2023-08-22] MEDS ORDERED: Acetaminophen 325 MG TAB PO PRN (15:10)
[2023-08-22] MEDS ORDERED: Magnesium Sulfate In Water 4 GM in Premix 1 BAG IVPB SCH (15:15)
[2023-08-22] MEDS ORDERED: Dextrose 50% Abboject 50 ML SYRINGE SLOW IVP PRN (15:22)
[2023-08-22] MEDS ORDERED: Glucagon 1 MG/ML KIT IM PRN (15:22)
[2023-08-22] MEDS ORDERED: HumaLOG 300 UNITS/3 ML VIAL SC PRN ×2 (15:22)
[2023-08-22] MEDS ORDERED: Dextrose 5% in Water 1,000 ML IV PRN (15:22)
[2023-08-22] MEDS ORDERED: Electrolyte Replacement Protocol FS PRN (15:30)
[2023-08-22] MEDS ORDERED: Electrolyte Replacement Protocol 1 EACH FS SCH (15:30)
[2023-08-22] MEDS ORDERED: Potassium Chloride 20 MEQ TAB PO SCH (15:30)
[2023-08-22] MEDS ORDERED: Ipratropium/Albuterol 3 ML NEB NEB PRN (16:08)
[2023-08-22 17:09] LABS: Hemoglobin A1c 5.4 % (4.0-6.0)
[2023-08-22] MEDS ORDERED: cefTRIAXone\\ROCEPHIN 1 GM in Sodium Chloride 0.9% 100 ML IVPB SCH (17:30)
[2023-08-22] MEDS ORDERED: Azithromycin 500 MG in Sodium Chloride 0.9% 250 ML 250 ML IVPB SCH (17:30)
[2023-08-22 18:12] VITALS: BMI 19.7
[2023-08-22] MEDS ORDERED: LevoFLOXacin 750 mg/D5W 150 ml Premix Bag ONE (18:28)
[2023-08-22] MEDS: LevoFLOXacin 750 mg/D5W 750 MG in Premix 1 BAG IVPB SCH (18:34)
[2023-08-22] MEDS: methylPREDNISolone Sod Succ 40 MG VIAL IVP SCH (18:34)
[2023-08-22] MEDS: Nicotine 14 MG PATCH TD SCH (18:39)
[2023-08-22] MEDS: Mometasone 200 MCG/Formoterol 5 MCG 120 PUFF INHALER INH SCH (19:05)
[2023-08-23] MEDS: methylPREDNISolone Sod Succ 40 MG VIAL IVP SCH ×3 (00:15→13:04)
[2023-08-23 07:08] LABS: ALT (SGPT) 19 U/L (8-55); AST (SGOT) 17 U/L (5-34); Alkaline Phosphatase 69 U/L (40-110); Anion Gap 13 mmol/L (10-20); BUN (Urea Nitrogen) 10 mg/dL (9.8-20.1); Bilirubin, Total 0.9 mg/dL (0.2-1.2); Calc. Creatinine Clearance 43 mL/min (70-130); Calcium 8.1 mg/dL (7.8-10.44); Carbon Dioxide 27 mmol/L (23-31); Chloride 100 mmol/L (98-107); Estimated GFR 72; Globulin 2.6 g/dL (2.4-3.5); Glucose 107 mg/dL (83-110); Potassium 3.2 mmol/L (3.5-5.1); Protein, Total 5.6 g/dL (5.8-8.1); Sodium 137 mmol/L (136-145)
[2023-08-23] MEDS ORDERED: Potassium Chloride 20 MEQ TAB PO SCH (08:00)
[2023-08-23] MEDS: Mometasone 200 MCG/Formoterol 5 MCG 120 PUFF INHALER INH SCH ×2 (08:15→19:19)
[2023-08-23] MEDS: Nicotine 14 MG PATCH TD SCH (15:16)
[2023-08-23] MEDS: LevoFLOXacin 750 mg/D5W 750 MG in Premix 1 BAG IVPB SCH (17:23)
[2023-08-23] MEDS: Sucralfate 1 GM/10 ML UDCUP PO SCH ×2 (17:23→20:50)
[2023-08-23] MEDS: Gabapentin 300 MG CAP PO SCH (20:50)
[2023-08-23] MEDS: Apixaban 5 MG TAB PO SCH (20:50)
[2023-08-23] MEDS: sulfaSALAzine 500 MG TAB PO SCH (20:50)
[2023-08-23] MEDS ORDERED: Rosuvastatin 10 MG TAB PO SCH (21:00)
[2023-08-23] MEDS ORDERED: Ezetimibe 10 MG TAB PO SCH (21:00)
[2023-08-24] MEDS: Mometasone 200 MCG/Formoterol 5 MCG 120 PUFF INHALER INH SCH (07:22)
[2023-08-24] MEDS: sulfaSALAzine 500 MG TAB PO SCH (08:25)
[2023-08-24] MEDS: Sucralfate 1 GM/10 ML UDCUP PO SCH ×2 (08:26→13:16)
[2023-08-24] MEDS: Gabapentin 300 MG CAP PO SCH (08:26)
[2023-08-24] MEDS: Apixaban 5 MG TAB PO SCH (08:27)
[2023-08-24] MEDS ORDERED: DULoxetine 30 MG CAP PO SCH (09:00)
[2023-08-24] MEDS ORDERED: Amiodarone 200 MG TAB PO SCH (09:00)
[2023-08-24] MEDS ORDERED: Ipratropium Bromide 0.06% Nasal Inhaler 15ml EA NARE SCH (09:00)
[2023-08-24] MEDS ORDERED: Potassium Chloride 20 MEQ TAB PO SCH ×2 (09:00→14:00)
[2023-08-24] MEDS ORDERED: methylPREDNISolone Sod Succ 40 MG VIAL IVP SCH (09:00)
[2023-08-24] MEDS ORDERED: Non-Formulary Item 1 EACH (Fluticasone/Salmeterol [Wixela 250-50 Inhub] 1 EACH Blst.W.Dev IH SCH (09:00)
[2023-08-24] MEDS ORDERED: Doxepin HCl 25 MG CAP PO SCH (09:00)
[2023-08-24 09:06] LABS: ALT (SGPT) 12 U/L (8-55); AST (SGOT) 12 U/L (5-34); Albumin 2.7 g/dL (3.4-4.8); Alkaline Phosphatase 58 U/L (40-110); Anion Gap 11 mmol/L (10-20); BUN (Urea Nitrogen) 10 mg/dL (9.8-20.1); Bilirubin, Total 0.5 mg/dL (0.2-1.2); Calc. Creatinine Clearance 50 mL/min (70-130); Calcium 7.7 mg/dL (7.8-10.44); Carbon Dioxide 27 mmol/L (23-31); Chloride 104 mmol/L (98-107); Estimated GFR 87; Globulin 2.6 g/dL (2.4-3.5); Glucose 78 mg/dL (83-110); Potassium 3.3 mmol/L (3.5-5.1); Protein, Total 5.3 g/dL (5.8-8.1); Sodium 139 mmol/L (136-145)
[2023-08-24] MEDS: Nicotine 14 MG PATCH TD SCH (14:51)
[2023-08-24 16:42] VITALS: BP 114/73; TEMP 98.3
[2023-08-30] MEDS ORDERED: Apixaban 5 MG TAB PO SCH (21:00)
== END 2023-08-24 17:40 | disposition home or self-care (01) | DRG 175 ==
LOC: ERS 12:25 → T4-A 15:10
PROVIDERS: ADMIT Internal Medicine; ATTEND Family Medicine
DX: I26.99 Other pulmonary embolism without acute cor pulmonale (principal); J96.20 Acute and chronic respiratory failure, unspecified whether with hypoxia or hypercapnia; J44.1 Chronic obstructive pulmonary disease with (acute) exacerbation; I50.32 Chronic diastolic (congestive) heart failure; E87.6 Hypokalemia; E83.42 Hypomagnesemia; I48.0 Paroxysmal atrial fibrillation; E78.5 Hyperlipidemia, unspecified; Z11.52 Encounter for screening for COVID-19; Z88.1 Allergy status to other antibiotic agents; Z79.899 Other long term (current) drug therapy; Z90.49 Acquired absence of other specified parts of digestive tract; Z98.890 Other specified postprocedural states; Z98.41 Cataract extraction status, right eye; Z98.42 Cataract extraction status, left eye; F17.210 Nicotine dependence, cigarettes, uncomplicated; Z79.01 Long term (current) use of anticoagulants; I25.10 Atherosclerotic heart disease of native coronary artery without angina pectoris; I11.0 Hypertensive heart disease with heart failure; G89.4 Chronic pain syndrome
CPT/HCPCS: 36415; 36416; 71045; 71275; 80053; 83036; 83605; 83735; 83880; 84484; 85025; 87040; 87070; 87205; 93005; 93010; 93306; 93970; 96360; 96361; 96372; 96374; J1650; J1956; J2920; J2930; J3475; J7620; Q9967

== ENCOUNTER 2023-09-09 22:44 | Inpatient (IN) | payer OTHER, MEDICARE ==
[2023-09-10 01:12] LABS: #Eosinphils 0.1 thou/uL (0.0-0.7); #Monocytes 1.7 thou/uL (0.11-0.59); #Neutrophils 14.4 thou/uL (1.40-6.50); %Basophils 0.2 % (0.0-1.0); %Eosinophils 0.3 % (0.0-10.0); %Lymphocytes 7.4 % (21.0-51.0); %Monocytes 9.7 % (0.0-10.0); %Neutrophils 81.7 % (42.0-75.0); Hematocrit 39.1 % (36.0-47.0); Hemoglobin 13.4 g/dL (12.0-16.0); Mean Corpuscular HGB CONC 34.3 g/dL (32.0-36.0); Mean Corpuscular Hemoglobin 32.8 pg (27.0-31.0); Mean Corpuscular Volume 95.8 fl (78.0-98.0); Mean Platelet Volume 8.2 fL (7.4-10.4); Platelet Count 306 10x3/uL (130-400); RBC Distribution Width 12.7 % (11.5-14.5); Red Blood Cell (RBC) Count 4.08 mill/uL (4.20-5.40); White Blood Cell (WBC) Count 17.7 10x3/uL (4.8-10.8)
[2023-09-10] MEDS ORDERED: methylPREDNISolone Sod Succ/PF 125 MG/2 ML VIAL ONE (01:36)
[2023-09-10 01:43] LABS: ALT (SGPT) 30 U/L (8-55); AST (SGOT) 45 U/L (5-34); Albumin 3.3 g/dL (3.4-4.8); Alkaline Phosphatase 101 U/L (40-110); Anion Gap 16 mmol/L (10-20); BUN (Urea Nitrogen) 9 mg/dL (9.8-20.1); Bilirubin, Total 0.6 mg/dL (0.2-1.2); CRP (Inflammatory) 1.52 mg/dL (= or < 0.5); Calc. Creatinine Clearance 0 mL/min (70-130); Calcium 8.3 mg/dL (7.8-10.44); Carbon Dioxide 21 mmol/L (23-31); Chloride 101 mmol/L (98-107); Estimated GFR 75; Globulin 2.7 g/dL (2.4-3.5); Glucose 99 mg/dL (83-110); Magnesium 1.6 mg/dL (1.6-2.6); Potassium 3.7 mmol/L (3.5-5.1); Sodium 134 mmol/L (136-145)
[2023-09-10 01:47] LABS: Troponin I Less than 0.010 ng/mL (< 0.028)
[2023-09-10 02:02] LABS: Actual Bicarbonate (HCO3v) 23.3 mEq/L (22-28); Base Excess -1.9 mEq/L (-2.0 to +3.0); Calcium, Ionized (venous) 1.04 mmol/L (1.16-1.32); Chloride (VBG) 96 mmol/L (98-106); Hematocrit-VBG 41 % (36.0-47.0); Potassium (VBG) 3.97 mmol/L (3.70-5.30); Sodium 133 mmol/L (133-146); pH (venous) 7.367 (7.32-7.43)
[2023-09-10] MEDS ORDERED: fentaNYL 50 mcg/mL 1 mL Vial ONE (02:09)
[2023-09-10] MEDS ORDERED: Ondansetron PF 4 MG/2 ML Vial IVP PRN (03:34)
[2023-09-10] MEDS ORDERED: HumaLOG 300 UNITS/3 ML VIAL SC PRN ×2 (04:28)
[2023-09-10] MEDS ORDERED: Dextrose 50% Abboject 50 ML SYRINGE SLOW IVP PRN (04:28)
[2023-09-10] MEDS ORDERED: Dextrose 5% in Water 1,000 ML IV PRN (04:28)
[2023-09-10] MEDS ORDERED: Glucagon 1 MG/ML KIT IM PRN (04:28)
[2023-09-10 04:51] VITALS: BMI 19.1
[2023-09-10 07:27] LABS: Troponin I Less than 0.010 ng/mL (< 0.028)
[2023-09-10] MEDS ORDERED: Apixaban 5 MG TAB ONE (08:13)
[2023-09-10] MEDS: Apixaban 5 MG TAB PO SCH (08:25)
[2023-09-10] MEDS ORDERED: Iopamidol-370 76% 500 ML MDV (1 ML CHARGE) ONE (10:20)
[2023-09-10 11:16] LABS: Troponin I Less than 0.010 ng/mL (< 0.028)
[2023-09-10] MEDS: Mometasone 200 MCG/Formoterol 5 MCG 120 PUFF INHALER INH SCH (18:32)
[2023-09-10] MEDS: sulfaSALAzine 500 MG TAB PO SCH (20:52)
[2023-09-10] MEDS: Gabapentin 300 MG CAP PO SCH (20:52)
[2023-09-10] MEDS: Metoprolol Tartrate 25 MG TAB PO SCH (20:53)
[2023-09-10] MEDS: Ezetimibe 10 MG TAB PO SCH (20:53)
[2023-09-10] MEDS: Rosuvastatin 20 MG TAB PO SCH (20:53)
[2023-09-10] MEDS: Ipratropium/Albuterol 3 ML NEB ONE (22:31)
[2023-09-11 04:24] LABS: #Monocytes 1.9 thou/uL (0.11-0.59); #Neutrophils 12.3 thou/uL (1.40-6.50); %Basophils 0.2 % (0.0-1.0); %Eosinophils 0.1 % (0.0-10.0); %Lymphocytes 9.6 % (21.0-51.0); %Monocytes 11.9 % (0.0-10.0); %Neutrophils 77.5 % (42.0-75.0); Hematocrit 35.3 % (36.0-47.0); Hemoglobin 11.8 g/dL (12.0-16.0); Mean Corpuscular HGB CONC 33.4 g/dL (32.0-36.0); Mean Corpuscular Hemoglobin 33.1 pg (27.0-31.0); Mean Corpuscular Volume 98.9 fl (78.0-98.0); Mean Platelet Volume 8.2 fL (7.4-10.4); Platelet Count 253 10x3/uL (130-400); RBC Distribution Width 13.2 % (11.5-14.5); Red Blood Cell (RBC) Count 3.57 mill/uL (4.20-5.40); White Blood Cell (WBC) Count 15.9 10x3/uL (4.8-10.8)
[2023-09-11 04:47] LABS: Anion Gap 12 mmol/L (10-20); BUN (Urea Nitrogen) 12 mg/dL (9.8-20.1); Calc. Creatinine Clearance 46 mL/min (70-130); Calcium 8.8 mg/dL (7.8-10.44); Carbon Dioxide 29 mmol/L (23-31); Chloride 101 mmol/L (98-107); Estimated GFR 81; Glucose 116 mg/dL (83-110); Potassium 3.6 mmol/L (3.5-5.1); Sodium 138 mmol/L (136-145)
[2023-09-11] MEDS: Doxepin HCl 25 MG CAP PO SCH (09:33)
[2023-09-11] MEDS: DULoxetine 60 MG CAP PO SCH (09:33)
[2023-09-11] MEDS: Amiodarone 200 MG TAB PO SCH (09:33)
[2023-09-11] MEDS: Acetaminophen 325 MG TAB PO PRN (11:43)
[2023-09-12 04:38] LABS: #Eosinphils 0.1 thou/uL (0.0-0.7); #Monocytes 0.9 thou/uL (0.11-0.59); #Neutrophils 9.5 thou/uL (1.40-6.50); %Basophils 0.2 % (0.0-1.0); %Eosinophils 1.1 % (0.0-10.0); %Lymphocytes 14.8 % (21.0-51.0); %Monocytes 7.3 % (0.0-10.0); %Neutrophils 75.7 % (42.0-75.0); Hematocrit 35.1 % (36.0-47.0); Hemoglobin 11.4 g/dL (12.0-16.0); Mean Corpuscular HGB CONC 32.5 g/dL (32.0-36.0); Mean Corpuscular Hemoglobin 32.3 pg (27.0-31.0); Mean Corpuscular Volume 99.4 fl (78.0-98.0); Mean Platelet Volume 8.6 fL (7.4-10.4); Platelet Count 280 10x3/uL (130-400); RBC Distribution Width 13.2 % (11.5-14.5); Red Blood Cell (RBC) Count 3.53 mill/uL (4.20-5.40); White Blood Cell (WBC) Count 12.5 10x3/uL (4.8-10.8)
[2023-09-12 05:10] LABS: Anion Gap 14 mmol/L (10-20); BUN (Urea Nitrogen) 12 mg/dL (9.8-20.1); Calc. Creatinine Clearance 44 mL/min (70-130); Calcium 8.6 mg/dL (7.8-10.44); Carbon Dioxide 25 mmol/L (23-31); Chloride 101 mmol/L (98-107); Estimated GFR 77; Glucose 118 mg/dL (83-110); Potassium 3.5 mmol/L (3.5-5.1); Sodium 136 mmol/L (136-145)
[2023-09-13 09:01] VITALS: BP 107/55; TEMP 97.9
== END 2023-09-13 12:09 | disposition home or self-care (01) | DRG 175 ==
LOC: ERS 22:44 → UNDOADMIN 09-10 03:37 → ERHOLD 09-10 03:37 → 2NO 09-10 16:06 → ERHOLD 09-11 08:36
PROVIDERS: ADMIT Internal Medicine; ATTEND Hospitalist
PROC: 4A043R1 Measurement of Venous Saturation, Peripheral, Percutaneous Approach (ICD-10-PCS; principal; 2023-09-10)
DX: I26.99 Other pulmonary embolism without acute cor pulmonale (principal); J96.21 Acute and chronic respiratory failure with hypoxia; I50.32 Chronic diastolic (congestive) heart failure; J44.1 Chronic obstructive pulmonary disease with (acute) exacerbation; I31.39 Other pericardial effusion (noninflammatory); E78.5 Hyperlipidemia, unspecified; E11.9 Type 2 diabetes mellitus without complications; I48.0 Paroxysmal atrial fibrillation; D50.9 Iron deficiency anemia, unspecified; I11.0 Hypertensive heart disease with heart failure; J43.9 Emphysema, unspecified; D72.829 Elevated white blood cell count, unspecified; F17.210 Nicotine dependence, cigarettes, uncomplicated; Z79.899 Other long term (current) drug therapy; Z88.1 Allergy status to other antibiotic agents; Z98.41 Cataract extraction status, right eye; Z98.42 Cataract extraction status, left eye; Z90.49 Acquired absence of other specified parts of digestive tract; Z98.891 History of uterine scar from previous surgery; Z98.51 Tubal ligation status; Z82.49 Family history of ischemic heart disease and other diseases of the circulatory system
CPT/HCPCS: 36415; 36416; 71045; 71275; 80048; 80053; 82805; 83605; 83735; 83880; 84443; 84484; 85025; 86140; 87040; 93005; 93306; 94640; 94664; 96374; 96375; J2930; J3010; J7620; Q9967

== ENCOUNTER 2023-09-17 17:30 | Emergency (ER) | payer OTHER ==
[2023-09-17 18:59] LABS: #Basophils 0.1 thou/uL (0.0-0.2); #Monocytes 1.8 thou/uL (0.11-0.59); #Neutrophils 10.1 thou/uL (1.40-6.50); %Basophils 0.6 % (0.0-1.0); %Eosinophils 0.1 % (0.0-10.0); %Lymphocytes 12.9 % (21.0-51.0); %Monocytes 12.4 % (0.0-10.0); %Neutrophils 71.5 % (42.0-75.0); Hematocrit 36.6 % (36.0-47.0); Hemoglobin 12.4 g/dL (12.0-16.0); Mean Corpuscular HGB CONC 33.9 g/dL (32.0-36.0); Mean Corpuscular Volume 94.3 fl (78.0-98.0); Mean Platelet Volume 8.9 fL (7.4-10.4); Platelet Count 448 10x3/uL (130-400); RBC Distribution Width 12.6 % (11.5-14.5); Red Blood Cell (RBC) Count 3.88 mill/uL (4.20-5.40); White Blood Cell (WBC) Count 14.1 10x3/uL (4.8-10.8)
[2023-09-17 19:24] LABS: ALT (SGPT) 94 U/L (8-55); AST (SGOT) 231 U/L (5-34); Albumin 3.1 g/dL (3.4-4.8); Alkaline Phosphatase 107 U/L (40-110); Anion Gap 19 mmol/L (10-20); BUN (Urea Nitrogen) 21 mg/dL (9.8-20.1); Bilirubin, Total 1.5 mg/dL (0.2-1.2); Calc. Creatinine Clearance 0 mL/min (70-130); Calcium 8.2 mg/dL (7.8-10.44); Carbon Dioxide 19 mmol/L (23-31); Chloride 100 mmol/L (98-107); Estimated GFR 67; Globulin 2.8 g/dL (2.4-3.5); Glucose 74 mg/dL (83-110); Lipase Less than 4 U/L (8-78); Potassium 2.9 mmol/L (3.5-5.1); Protein, Total 5.9 g/dL (5.8-8.1); Sodium 135 mmol/L (136-145)
[2023-09-17 19:26] LABS: Troponin I 0.018 ng/mL (< 0.028)
[2023-09-17] MEDS ORDERED: Potassium Chloride 20 MEQ TAB ONE (19:44)
== END 2023-09-17 19:10 | disposition home or self-care (01) ==
LOC: ERS 17:30
DX: E87.6 Hypokalemia (principal); I25.119 Atherosclerotic heart disease of native coronary artery with unspecified angina pectoris; R00.2 Palpitations; I48.91 Unspecified atrial fibrillation; E11.9 Type 2 diabetes mellitus without complications; J44.9 Chronic obstructive pulmonary disease, unspecified; I10 Essential (primary) hypertension; F17.210 Nicotine dependence, cigarettes, uncomplicated; Z86.711 Personal history of pulmonary embolism; Z79.01 Long term (current) use of anticoagulants; Z79.899 Other long term (current) drug therapy
CPT/HCPCS: 36415; 71045; 80053; 83690; 83880; 84484; 85025; 93005

== ENCOUNTER 2023-10-02 23:01 | Inpatient (IN) | payer OTHER, MEDICAID ==
[2023-10-03 00:51] VITALS: BMI 18.5
[2023-10-03] MEDS ORDERED: Acetaminophen 325 MG TAB PO PRN (01:05)
[2023-10-03] MEDS ORDERED: Nicotine 14 MG PATCH TD PRN (01:05)
[2023-10-03] MEDS ORDERED: Calcium Carbonate 500 MG ChewTAB PO PRN (01:05)
[2023-10-03] MEDS ORDERED: Ondansetron ODT 4 MG TAB PO PRN (01:05)
[2023-10-03 01:20] LABS: #Monocytes 0.1 thou/uL (0.11-0.59); #Neutrophils 11.9 thou/uL (1.40-6.50); %Basophils 0.2 % (0.0-1.0); %Lymphocytes 4.3 % (21.0-51.0); %Monocytes 0.9 % (0.0-10.0); %Neutrophils 93.9 % (42.0-75.0); Hematocrit 34.2 % (36.0-47.0); Hemoglobin 11.4 g/dL (12.0-16.0); Mean Corpuscular HGB CONC 33.3 g/dL (32.0-36.0); Mean Corpuscular Hemoglobin 31.7 pg (27.0-31.0); Platelet Count 383 10x3/uL (130-400); RBC Distribution Width 14.4 % (11.5-14.5); White Blood Cell (WBC) Count 12.7 10x3/uL (4.8-10.8)
[2023-10-03] MEDS ORDERED: Albuterol 200 PUFF (6.7GM INHALER) INH PRN (01:26)
[2023-10-03 02:43] LABS: Anion Gap 15 mmol/L (10-20); BUN (Urea Nitrogen) 9 mg/dL (9.8-20.1); Calc. Creatinine Clearance 47 mL/min (70-130); Calcium 8.1 mg/dL (7.8-10.44); Carbon Dioxide 24 mmol/L (23-31); Chloride 101 mmol/L (98-107); Estimated GFR 86; Glucose 130 mg/dL (83-110); Potassium 3.9 mmol/L (3.5-5.1); Sodium 136 mmol/L (136-145)
[2023-10-03] MEDS: Mometasone 200 MCG/Formoterol 5 MCG 120 PUFF INHALER INH SCH ×2 (07:21→19:19)
[2023-10-03] MEDS: Doxepin HCl 25 MG CAP PO SCH (08:41)
[2023-10-03] MEDS: Famotidine 20 MG TAB PO SCH ×2 (08:41→20:17)
[2023-10-03] MEDS: Amiodarone 200 MG TAB PO SCH (08:41)
[2023-10-03] MEDS: Metoprolol Tartrate 50 MG TAB PO SCH ×2 (08:42→20:16)
[2023-10-03] MEDS: Apixaban 5 MG TAB PO SCH ×2 (08:42→20:16)
[2023-10-03] MEDS: Potassium Chloride 20 MEQ TAB PO SCH (08:42)
[2023-10-03] MEDS: Gabapentin 300 MG CAP PO SCH ×2 (08:42→20:17)
[2023-10-03] MEDS: DULoxetine 60 MG CAP PO SCH (08:42)
[2023-10-03] MEDS ORDERED: Ipratropium Bromide 0.06% Nasal Inhaler 15ml EA NARE SCH (09:00)
[2023-10-03] MEDS: sulfaSALAzine 500 MG TAB PO SCH (20:18)
[2023-10-03] MEDS ORDERED: Ezetimibe 10 MG TAB PO SCH (21:00)
[2023-10-03] MEDS ORDERED: Rosuvastatin 20 MG TAB PO SCH (21:00)
[2023-10-04 04:59] LABS: Hematocrit 38.5 % (36.0-47.0); Hemoglobin 12.3 g/dL (12.0-16.0); Manual Diff?? YES; Mean Corpuscular HGB CONC 31.9 g/dL (32.0-36.0); Mean Corpuscular Hemoglobin 31.2 pg (27.0-31.0); Mean Corpuscular Volume 97.7 fl (78.0-98.0); Mean Platelet Volume 8.3 fL (7.4-10.4); Platelet Count 526 10x3/uL (130-400); RBC Distribution Width 14.4 % (11.5-14.5); Red Blood Cell (RBC) Count 3.94 mill/uL (4.20-5.40); White Blood Cell (WBC) Count 25.4 10x3/uL (4.8-10.8)
[2023-10-04 05:09] LABS: Delete Auto Diff?? YES
[2023-10-04 07:05] LABS: Band 1 % (5-11); Lymphocytes 11 % (21-51); Monocytes 7 % (0-10); Neutrophil 81 % (42-75); RBC Morph Comment Within Normal Limits
[2023-10-04 07:06] LABS: Platelet Adequacy Comment Appears Increased
[2023-10-04] MEDS: Mometasone 200 MCG/Formoterol 5 MCG 120 PUFF INHALER INH SCH (07:14)
[2023-10-04] MEDS: Potassium Chloride 20 MEQ TAB PO SCH (07:54)
[2023-10-04] MEDS: Doxepin HCl 25 MG CAP PO SCH (07:54)
[2023-10-04] MEDS: Gabapentin 300 MG CAP PO SCH (07:54)
[2023-10-04] MEDS: Amiodarone 200 MG TAB PO SCH (07:54)
[2023-10-04] MEDS: Metoprolol Tartrate 50 MG TAB PO SCH (07:54)
[2023-10-04] MEDS: sulfaSALAzine 500 MG TAB PO SCH (07:54)
[2023-10-04] MEDS: Famotidine 20 MG TAB PO SCH (07:55)
[2023-10-04] MEDS: DULoxetine 60 MG CAP PO SCH (07:55)
[2023-10-04] MEDS: Apixaban 5 MG TAB PO SCH (07:55)
[2023-10-04 12:42] VITALS: BP 137/55; TEMP 97.6
== END 2023-10-04 15:15 | disposition home or self-care (01) | DRG 309 ==
LOC: 2NO 10-03 00:48 → OBSVTOIN 10-03 13:58
PROVIDERS: ADMIT Student in an Organized Health Care Education/Training Program; ATTEND Family Medicine
DX: I48.91 Unspecified atrial fibrillation (principal); I50.32 Chronic diastolic (congestive) heart failure; Z68.1 Body mass index [BMI] 19.9 or less, adult; J44.9 Chronic obstructive pulmonary disease, unspecified; K44.9 Diaphragmatic hernia without obstruction or gangrene; I11.0 Hypertensive heart disease with heart failure; E11.9 Type 2 diabetes mellitus without complications; E78.5 Hyperlipidemia, unspecified; Z90.49 Acquired absence of other specified parts of digestive tract; Z98.890 Other specified postprocedural states; Z88.1 Allergy status to other antibiotic agents; Z79.899 Other long term (current) drug therapy; Z79.01 Long term (current) use of anticoagulants; R63.6 Underweight; Z86.711 Personal history of pulmonary embolism
CPT/HCPCS: 36415; 80048; 85025; G0378; Q0162

== ENCOUNTER 2023-10-31 09:09 | Outpatient (CLI) | payer OTHER, MEDICAID | END 2023-10-31 09:10 | disposition home or self-care (01) | LOC: BICMAMMO 09:09 | PROVIDERS: ATTEND Physician Assistant | DX: Z12.31 Encounter for screening mammogram for malignant neoplasm of breast (principal); Z13.820 Encounter for screening for osteoporosis; M81.0 Age-related osteoporosis without current pathological fracture; Z80.3 Family history of malignant neoplasm of breast; Z78.0 Asymptomatic menopausal state | CPT/HCPCS: 77063; 77067; 77080 ==

== ENCOUNTER 2023-11-06 22:09 | Inpatient (IN) | payer OTHER, MEDICAID ==
[2023-11-06] MEDS ORDERED: Acetaminophen 500 MG TAB ONE (22:52)
[2023-11-06 23:00] LABS: #Monocytes 1.5 thou/uL (0.11-0.59); #Neutrophils 12.3 thou/uL (1.40-6.50); %Basophils 0.3 % (0.0-1.0); %Eosinophils 0.1 % (0.0-10.0); %Monocytes 10.1 % (0.0-10.0); Hematocrit 39.4 % (36.0-47.0); Hemoglobin 12.7 g/dL (12.0-16.0); Mean Corpuscular HGB CONC 32.2 g/dL (32.0-36.0); Mean Corpuscular Hemoglobin 30.2 pg (27.0-31.0); Mean Corpuscular Volume 93.8 fl (78.0-98.0); Mean Platelet Volume 8.5 fL (7.4-10.4); Platelet Count 308 10x3/uL (130-400); RBC Distribution Width 14.5 % (11.5-14.5)
[2023-11-06 23:16] LABS: ALT (SGPT) 13 U/L (8-55); AST (SGOT) 16 U/L (5-34); Albumin 3.3 g/dL (3.4-4.8); Alkaline Phosphatase 74 U/L (40-110); Anion Gap 14 mmol/L (10-20); BUN (Urea Nitrogen) 12 mg/dL (9.8-20.1); Bilirubin, Total 0.6 mg/dL (0.2-1.2); Calc. Creatinine Clearance 0 mL/min (70-130); Carbon Dioxide 26 mmol/L (23-31); Chloride 100 mmol/L (98-107); Estimated GFR 82; Globulin 3.3 g/dL (2.4-3.5); Glucose 95 mg/dL (83-110); Lipase Less than 4 U/L (8-78); Magnesium 1.9 mg/dL (1.6-2.6); Potassium 3.8 mmol/L (3.5-5.1); Protein, Total 6.6 g/dL (5.8-8.1); Sodium 136 mmol/L (136-145)
[2023-11-06 23:19] LABS: Troponin I Less than 0.010 ng/mL (< 0.028)
[2023-11-07 00:15] LABS: Influenza A by NAA Not Detected (NotDetected); Influenza B by NAA Not Detected (NotDetected); SARS-CoV-2 NAA Rapid Test Not Detected (NotDetected)
[2023-11-07 03:22] LABS: Bacteria/HPF None Seen HPF (None Seen); Bilirubin Negative (Negative); Blood, Urine Trace (Negative); CAUTI Indications for Culture Alt mental st,lethar; Clarity Clear (Clear); Glucose, Urine (Dipstick) Normal (Negative); Ketone, Urine Negative (Negative); Leukocyte Negative Leu/uL (Negative); Nitrite Negative (Negative); Protein, Urine (Dipstick) Negative (Neg-Trace); Specific Gravity, Urine 1.024 (1.002-1.036); Squamous Epithelial 0-3 HPF (0-3); Urobilinogen Normal mg/dL (Less than 2); WBC/HPF 0-3 HPF (0-3)
[2023-11-07 03:23] LABS: Urine Culture Reflex No No
[2023-11-07] MEDS ORDERED: cefTRIAXone (ROCEPHIN) 1 GM VIAL ONE (03:41)
[2023-11-07] MEDS ORDERED: Sodium Chloride 0.9% 100 ML ONE ×2 (03:41→08:28)
[2023-11-07] MEDS ORDERED: Vancomycin 1 GM/200 ML (FROZEN) BAG ONE (03:47)
[2023-11-07 04:50] LABS: Troponin I Less than 0.010 ng/mL (< 0.028)
[2023-11-07 05:43] LABS: Legionella Urinary Ag Negative (Negative); Strep pneumo Urine Ag NEGATIVE (NEGATIVE)
[2023-11-07] MEDS: Ipratropium/Albuterol 3 ML NEB IPPB SCH (07:03)
[2023-11-07 07:48] VITALS: BMI 19.0
[2023-11-07] MEDS ORDERED: Acetaminophen 325 MG TAB ONE (07:56)
[2023-11-07] MEDS: Acetaminophen 325 MG TAB PO PRN (08:08)
[2023-11-07] MEDS ORDERED: Senokot S 8.6-50 MG TAB ONE ×2 (08:26→08:28)
[2023-11-07] MEDS ORDERED: Metoprolol Tartrate 50 MG TAB ONE (08:26)
[2023-11-07] MEDS ORDERED: Gabapentin 300 MG CAP ONE (08:26)
[2023-11-07] MEDS ORDERED: Apixaban 5 MG TAB ONE (08:27)
[2023-11-07] MEDS ORDERED: Polyethylene Glycol 3350 17 GM Packet ONE (08:27)
[2023-11-07] MEDS ORDERED: Cefepime 1 GM VIAL ONE (08:27)
[2023-11-07] MEDS ORDERED: Amiodarone 200 MG TAB ONE (08:27)
[2023-11-07] MEDS ORDERED: DULoxetine 60 MG CAP ONE (08:27)
[2023-11-07 08:30] LABS: Troponin I 0.018 ng/mL (< 0.028)
[2023-11-07] MEDS: Apixaban 5 MG TAB PO SCH (08:32)
[2023-11-07] MEDS: Cefepime 1 GM in Sodium Chloride 0.9% 100 ML IVPB SCH (08:32)
[2023-11-07] MEDS: DULoxetine 60 MG CAP PO SCH (08:32)
[2023-11-07] MEDS: Gabapentin 300 MG CAP PO SCH (08:32)
[2023-11-07] MEDS: Amiodarone 200 MG TAB PO SCH (08:32)
[2023-11-07] MEDS: Senokot S 8.6-50 MG TAB PO SCH (08:33)
[2023-11-07] MEDS: Metoprolol Tartrate 50 MG TAB PO SCH (08:33)
[2023-11-07] MEDS: Polyethylene Glycol 3350 17 GM Packet PO SCH (11:26)
[2023-11-07] MEDS: sulfaSALAzine 500 MG TAB PO SCH (11:36)
[2023-11-07] MEDS: Doxepin HCl 25 MG CAP PO SCH (11:36)
[2023-11-07] MEDS ORDERED: Iopamidol-370 76% 500 ML MDV (1 ML CHARGE) ONE (11:50)
[2023-11-07] MEDS ORDERED: Ipratropium/Albuterol 3 ML NEB NEB PRN (14:18)
[2023-11-07 17:45] LABS: #Monocytes 1.6 thou/uL (0.11-0.59); #Neutrophils 12.9 thou/uL (1.40-6.50); %Basophils 0.1 % (0.0-1.0); %Eosinophils 0.1 % (0.0-10.0); %Lymphocytes 7.7 % (21.0-51.0); %Monocytes 10.1 % (0.0-10.0); %Neutrophils 81.5 % (42.0-75.0); Hematocrit 33.5 % (36.0-47.0); Hemoglobin 11.1 g/dL (12.0-16.0); Mean Corpuscular HGB CONC 33.1 g/dL (32.0-36.0); Mean Corpuscular Hemoglobin 31.5 pg (27.0-31.0); Mean Corpuscular Volume 95.2 fl (78.0-98.0); Mean Platelet Volume 8.6 fL (7.4-10.4); Platelet Count 288 10x3/uL (130-400); RBC Distribution Width 14.4 % (11.5-14.5); Red Blood Cell (RBC) Count 3.52 mill/uL (4.20-5.40); White Blood Cell (WBC) Count 15.8 10x3/uL (4.8-10.8)
[2023-11-07 17:58] LABS: Anion Gap 14 mmol/L (10-20); BUN (Urea Nitrogen) 10 mg/dL (9.8-20.1); Calc. Creatinine Clearance 53 mL/min (70-130); Calcium 8.5 mg/dL (7.8-10.44); Carbon Dioxide 24 mmol/L (23-31); Chloride 99 mmol/L (98-107); Estimated GFR 93; Glucose 86 mg/dL (83-110); Potassium 3.3 mmol/L (3.5-5.1); Sodium 134 mmol/L (136-145)
[2023-11-07] MEDS: Sodium Chloride 0.9% 1,000 ML IV SCH (18:13)
[2023-11-07] MEDS: Ibuprofen 600 MG TAB PO PRN (18:16)
[2023-11-07] MEDS: Mometasone 200 MCG/Formoterol 5 MCG 120 PUFF INHALER INH SCH (18:19)
[2023-11-07] MEDS: Rosuvastatin 20 MG TAB PO SCH (21:24)
[2023-11-07] MEDS: Ezetimibe 10 MG TAB PO SCH (21:24)
[2023-11-07] MEDS ORDERED: Electrolyte Replacement Protocol 1 EACH FS SCH (23:45)
[2023-11-08] MEDS: Sodium Chloride 0.9% 500 ML IV SCH ×2 (00:15→01:35)
[2023-11-08 04:29] LABS: #Eosinphils 0.1 thou/uL (0.0-0.7); #Monocytes 1.4 thou/uL (0.11-0.59); #Neutrophils 8.3 thou/uL (1.40-6.50); %Basophils 0.2 % (0.0-1.0); %Eosinophils 0.5 % (0.0-10.0); %Lymphocytes 11.4 % (21.0-51.0); %Monocytes 12.4 % (0.0-10.0); %Neutrophils 75.1 % (42.0-75.0); Hematocrit 30.1 % (36.0-47.0); Hemoglobin 9.5 g/dL (12.0-16.0); Mean Corpuscular HGB CONC 31.6 g/dL (32.0-36.0); Mean Corpuscular Hemoglobin 30.4 pg (27.0-31.0); Mean Corpuscular Volume 96.5 fl (78.0-98.0); Mean Platelet Volume 8.6 fL (7.4-10.4); Platelet Count 243 10x3/uL (130-400); RBC Distribution Width 14.5 % (11.5-14.5); Red Blood Cell (RBC) Count 3.12 mill/uL (4.20-5.40)
[2023-11-08 04:59] LABS: Anion Gap 11 mmol/L (10-20); BUN (Urea Nitrogen) 11 mg/dL (9.8-20.1); Calc. Creatinine Clearance 50 mL/min (70-130); Carbon Dioxide 23 mmol/L (23-31); Chloride 109 mmol/L (98-107); Estimated GFR 90; Glucose 79 mg/dL (83-110); Magnesium 1.6 mg/dL (1.6-2.6); Potassium 3.3 mmol/L (3.5-5.1); Sodium 140 mmol/L (136-145)
[2023-11-08] MEDS: Vancomycin HCl 750 MG in Sodium Chloride 0.9% 250 ML 250 ML IVPB SCH (05:04)
[2023-11-08] MEDS: Magnesium 2 GM/50 ML(in water) 2 GM in Premix 1 BAG IVPB SCH ×2 (10:57→11:12)
[2023-11-08] MEDS: Potassium Bicarbonate/Cit Ac 20 MEQ TAB PO SCH (11:00)
[2023-11-08] MEDS: methylPREDNISolone Sod Succ 40 MG VIAL IVP SCH (17:45)
[2023-11-09 04:59] LABS: #Monocytes 0.3 thou/uL (0.11-0.59); #Neutrophils 8.8 thou/uL (1.40-6.50); %Basophils 0.1 % (0.0-1.0); %Lymphocytes 3.5 % (21.0-51.0); %Monocytes 2.7 % (0.0-10.0); %Neutrophils 93.1 % (42.0-75.0); Hematocrit 30.4 % (36.0-47.0); Hemoglobin 9.9 g/dL (12.0-16.0); Mean Corpuscular HGB CONC 32.6 g/dL (32.0-36.0); Mean Corpuscular Hemoglobin 30.9 pg (27.0-31.0); Mean Platelet Volume 8.6 fL (7.4-10.4); Platelet Count 322 10x3/uL (130-400); RBC Distribution Width 14.2 % (11.5-14.5); White Blood Cell (WBC) Count 9.5 10x3/uL (4.8-10.8)
[2023-11-09 05:22] LABS: Vancomycin, Trough 5.5 ug/mL
[2023-11-09 05:29] LABS: Anion Gap 14 mmol/L (10-20); BUN (Urea Nitrogen) 9 mg/dL (9.8-20.1); Calc. Creatinine Clearance 55 mL/min (70-130); Calcium 8.1 mg/dL (7.8-10.44); Carbon Dioxide 22 mmol/L (23-31); Chloride 106 mmol/L (98-107); Estimated GFR 93; Glucose 204 mg/dL (83-110); Potassium 3.5 mmol/L (3.5-5.1); Sodium 138 mmol/L (136-145)
[2023-11-09] MEDS: Potassium Bicarbonate/Cit Ac 20 MEQ TAB PO SCH (09:11)
[2023-11-09] MEDS ORDERED: Loratadine 10 MG TAB PO PRN (15:15)
[2023-11-09] MEDS: predniSONE 20 MG TAB PO SCH (16:57)
[2023-11-09] MEDS: Vancomycin HCl 750 MG in Sodium Chloride 0.9% 250 ML 250 ML IVPB SCH (16:58)
[2023-11-10 06:05] LABS: #Monocytes 1.1 thou/uL (0.11-0.59); #Neutrophils 16.9 thou/uL (1.40-6.50); %Basophils 0.1 % (0.0-1.0); %Lymphocytes 4.8 % (21.0-51.0); %Monocytes 5.6 % (0.0-10.0); %Neutrophils 88.3 % (42.0-75.0); Hematocrit 29.2 % (36.0-47.0); Hemoglobin 9.2 g/dL (12.0-16.0); Mean Corpuscular HGB CONC 31.5 g/dL (32.0-36.0); Mean Corpuscular Hemoglobin 29.9 pg (27.0-31.0); Mean Corpuscular Volume 94.8 fl (78.0-98.0); Mean Platelet Volume 8.5 fL (7.4-10.4); Platelet Count 380 10x3/uL (130-400); RBC Distribution Width 14.4 % (11.5-14.5); Red Blood Cell (RBC) Count 3.08 mill/uL (4.20-5.40); White Blood Cell (WBC) Count 19.1 10x3/uL (4.8-10.8)
[2023-11-10 06:44] LABS: Anion Gap 14 mmol/L (10-20); BUN (Urea Nitrogen) 12 mg/dL (9.8-20.1); Calc. Creatinine Clearance 58 mL/min (70-130); Calcium 7.7 mg/dL (7.8-10.44); Carbon Dioxide 23 mmol/L (23-31); Chloride 105 mmol/L (98-107); Estimated GFR 95; Glucose 83 mg/dL (83-110); Potassium 3.9 mmol/L (3.5-5.1); Sodium 138 mmol/L (136-145)
[2023-11-10] MEDS: predniSONE 20 MG TAB PO SCH (10:14)
[2023-11-10] MEDS: Fluticasone Propionate Nasal Spray 16 gm Bottle NASAL SCH (10:16)
[2023-11-10] MEDS: methylPREDNISolone Sod Succ/PF 125 MG/2 ML VIAL IVP SCH (18:15)
[2023-11-11 05:01] LABS: #Monocytes 0.4 thou/uL (0.11-0.59); #Neutrophils 12.5 thou/uL (1.40-6.50); %Basophils 0.2 % (0.0-1.0); %Lymphocytes 4.8 % (21.0-51.0); %Monocytes 3.1 % (0.0-10.0); %Neutrophils 90.9 % (42.0-75.0); Hematocrit 30.4 % (36.0-47.0); Hemoglobin 9.7 g/dL (12.0-16.0); Mean Corpuscular HGB CONC 31.9 g/dL (32.0-36.0); Mean Corpuscular Hemoglobin 30.3 pg (27.0-31.0); Mean Platelet Volume 8.5 fL (7.4-10.4); Platelet Count 457 10x3/uL (130-400); RBC Distribution Width 14.2 % (11.5-14.5); White Blood Cell (WBC) Count 13.8 10x3/uL (4.8-10.8)
[2023-11-11] MEDS: Metoprolol Tartrate 50 MG TAB PO SCH (09:06)
[2023-11-11] MEDS: Metoprolol Tartrate 25 MG TAB PO SCH (21:13)
[2023-11-12 08:04] VITALS: TEMP 98.4
[2023-11-12] MEDS: Ondansetron PF 4 MG/2 ML Vial IVP PRN (11:00)
[2023-11-12 12:05] VITALS: BP 147/69
[2023-11-13] MEDS ORDERED: predniSONE 20 MG TAB PO SCH (08:00)
[2023-11-13 22:12] LABS: Mycoplasma pneumoniae IgG AB 262 U/mL (0-99); Mycoplasma pneumoniae IgM AB Less than 770 U/mL (0-769)
== END 2023-11-12 15:25 | disposition home or self-care (01) | DRG 871 ==
LOC: ERS 22:09 → 2NO 11-07 03:41 → ERHOLD 11-07 03:46 → OBSVTOIN 11-07 03:46 → 2NO 11-07 14:50
PROVIDERS: ADMIT Internal Medicine; ATTEND Internal Medicine
DX: A41.9 Sepsis, unspecified organism (principal); J18.9 Pneumonia, unspecified organism; I50.32 Chronic diastolic (congestive) heart failure; I13.0 Hypertensive heart and chronic kidney disease with heart failure and stage 1 through stage 4 chronic kidney disease, or unspecified chronic kidney disease; J96.11 Chronic respiratory failure with hypoxia; J44.1 Chronic obstructive pulmonary disease with (acute) exacerbation; E78.5 Hyperlipidemia, unspecified; G47.33 Obstructive sleep apnea (adult) (pediatric); I48.0 Paroxysmal atrial fibrillation; M06.9 Rheumatoid arthritis, unspecified; N18.2 Chronic kidney disease, stage 2 (mild); F17.210 Nicotine dependence, cigarettes, uncomplicated; R33.9 Retention of urine, unspecified; K59.00 Constipation, unspecified; D63.1 Anemia in chronic kidney disease; Z88.1 Allergy status to other antibiotic agents; Z79.899 Other long term (current) drug therapy; Z86.711 Personal history of pulmonary embolism; Z98.890 Other specified postprocedural states; Z98.51 Tubal ligation status; Z90.49 Acquired absence of other specified parts of digestive tract; Z98.41 Cataract extraction status, right eye; Z98.42 Cataract extraction status, left eye; Z71.6 Tobacco abuse counseling
CPT/HCPCS: 36415; 36416; 51702; 71045; 71275; 74177; 80048; 80053; 80202; 81001; 83605; 83690; 83735; 83880; 84145; 84484; 85025; 85379; 86140; 87040; 87070; 87081; 87086; 87205; 87449; 87899; 93005; 93010; 94640; 96361; 96365; 96366; J0692; J0696; J2405; J2920; J2930; J3370; J3370-JW; J3475; J3490; J7030; J7050; J7512; J7620; Q9967